=== PATIENT | male | born 1980 | race Caucasian/White ===

== ENCOUNTER 2016-08-09 22:22 | Emergency (ER) | payer SELFPAY ==
[2016-08-09] MEDS ORDERED: PREDNISONE 20 MG TABLET PO ONE (23:04)
[2016-08-09] MEDS ORDERED: KETOROLAC TROMETHAMINE 60 MG/2 ML SDV IM ONE (23:06)
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
[2016-08-10 00:20] LABS: ABSOLUTE EOSINOPHILS # (AUTO) 0.1 10^3/uL (0.0-0.6); ABSOLUTE LYMPHOCYTES (AUTO) 1.8 10^3/uL (0.5-4.7); ABSOLUTE NEUT (AUTO) 6.5 10^3/uL (1.7-8.2); BASOPHILS % (AUTO) 0.3 % (0-2); EOSINOPHILS % (AUTO) 0.7 % (0-6); HEMATOCRIT 43.9 % (37.9-51.0); HEMOGLOBIN 15.2 g/dL (13.5-17.0); HGB HCT DIFFERENCE 1.7; LYMPHOCYTES % (AUTO) 18.9 % (13-45); MEAN CORPUSCULAR HEMOGLOBIN 37.3 pg (27.0-33.4); MEAN CORPUSCULAR HGB CONC 34.6 g/dL (32.0-36.0); MEAN CORPUSCULAR VOLUME 108 fl (80-97); MONOCYTES % (AUTO) 10.4 % (3-13); RED BLOOD COUNT 4.07 10^6/uL (4.35-5.55); RED CELL DISTRIBUTION WIDTH 13.5 % (11.5-14.0); SEGMENTED NEUTROPHILS % (AUTO) 69.7 % (42-78); WHITE BLOOD COUNT 9.4 10^3/uL (4.0-10.5)
[2016-08-10 00:38] LABS: ALANINE AMINOTRANSFERASE 50 U/L (21-72); ALBUMIN 4.5 g/dL (3.5-5.0); ALCOHOL 147 mg/dL (NONE DETECTED); ALKALINE PHOSPHATASE 183 U/L (38-126); ANION GAP 17 (5-19); ASPARTATE AMINO TRANSFERASE 153 U/L (17-59); BILIRUBIN,TOTAL 1.7 mg/dL (0.2-1.3); BLOOD UREA NITROGEN 5 mg/dL (7-20); CALCIUM 11.2 mg/dL (8.4-10.2); CARBON DIOXIDE 30 mmol/L (22-30); CHLORIDE 91 mmol/L (98-107); CREATININE RESULT 0.58 mg/dL (0.52-1.25); GLUCOSE 103 mg/dL (75-110); POTASSIUM 3.6 mmol/L (3.6-5.0); SODIUM 137.6 mmol/L (137-145); TOTAL PROTEIN 8.2 g/dL (6.3-8.2)
[2016-08-10 00:47] LABS: APPEARANCE,URINE CLEAR; BILIRUBIN,URINE NEGATIVE (NEGATIVE); GLUCOSE, URINE NEGATIVE (NEGATIVE); KETONES,URINE NEGATIVE (NEGATIVE); LEUKOCYTE ESTERASE,URINE NEGATIVE (NEGATIVE); NITRITE,URINE NEGATIVE (NEGATIVE); PROTEIN,URINE NEGATIVE (NEGATIVE); URINE SPECIFIC GRAVITY 1.005; UROBILINOGEN,URINE NEGATIVE mg/dL (<2.0)
[2016-08-10 01:15] LABS: URINE BARBITURATES SCREEN NEGATIVE; URINE METHADONE SCREEN NEGATIVE; URINE OPIATES LOW NEGATIVE; URINE PHENCYCLIDINE SCREEN NEGATIVE
[2016-08-10] MEDS ORDERED: MECLIZINE HCL 25 MG TABLET PO ONE (05:14)
--- NOTE | 2016-08-10 10:34 | EKG REPORT ---
SEVERITY:- ABNORMAL ECG - SINUS RHYTHM PROBABLE LEFT ATRIAL ABNORMALITY NONSPECIFIC T ABNORMALITIES, ANTERIOR LEADS : Confirmed by: Andrey Myers 10-Aug-2016 10:33:11
[2016-08-10 11:19] VITALS: BP 138/80
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
== END 2016-08-10 11:19 | disposition home or self-care (01) ==
LOC: ER 22:22
DX: G89.29 Other chronic pain (principal); M54.5 Low back pain; Z96.89 Presence of other specified functional implants; F10.129 Alcohol abuse with intoxication, unspecified; R45.6 Violent behavior; R09.89 Other specified symptoms and signs involving the circulatory and respiratory systems; M25.521 Pain in right elbow; W19.XXXA Unspecified fall, initial encounter; Y93.89 Activity, other specified; Y92.238 Other place in hospital as the place of occurrence of the external cause; F17.200 Nicotine dependence, unspecified, uncomplicated; R00.0 Tachycardia, unspecified
CPT/HCPCS: 93005; 99285; 96372; 36415; 80307 ×4; 85025; 80053; 81001; 93010; J1885; J7512

== ENCOUNTER 2017-01-09 08:51 | Emergency (ER) | payer SELFPAY ==
[2017-01-09] MEDS ORDERED: LIDOCAINE 1% INJ-PF (10 MG/ML) 30 ML SDV INJ ONE (09:25)
[2017-01-09] MEDS ORDERED: OXYCODONE-ACETAMINOPHEN 5-325 MG TABLET PO ONE (09:25)
--- NOTE | 2017-01-09 09:46 | ER Document Report ---
ED General - General Chief Complaint: Seizure Stated Complaint: NOSE INJURY FROM POSSIBLE SEIZURE Time Seen by Provider: 01/09/17 09:18 Mode of Arrival: Ambulatory Information source: Patient Notes: 36 yr male presents with hx of seizure disorder with complaints of seizure prior to arrival. pt otes he fell and struck his face. Pt denies any other injuries except for abrasion to the right hand. pt denies any fevers or chills, states that he takes his meds as prescribed. TRAVEL OUTSIDE OF THE [place] IN LAST 30 DAYS: No - HPI Onset: Just prior to arrival Onset/Duration: Sudden Quality of pain: Achy Severity: Mild Pain Level: 1 Associated symptoms: Other - facial injuries Exacerbated by: Denies Relieved by: Denies Similar symptoms previously: Yes Recently seen / treated by doctor: Yes - Related Data Allergies/Adverse Reactions: hydrocodone bitartrate [From Vicodin] Adverse Reaction (Intermediate, Verified 12/04/15 06:47) Past Medical History - Social History Smoking Status: Current Every Day Smoker Cigarette use (# per day): Yes Chew tobacco use (# tins/day): No - 20 Smoking Education Provided: Yes - Patient counselled regarding cessation for 4 minutes Frequency of alcohol use: Occasional Drug Abuse: None Family History: None, Other Patient has suicidal ideation: No Patient has homicidal ideation: No Pulmonary Medical History: Denies: Hx Tuberculosis Neurological Medical History: Reports: Hx Seizures Renal/ Medical History: Denies: Hx Peritoneal Dialysis Traumatic Medical History: Reports: Hx Fractures - current Right foot fracture Past Surgical History: Reports: Hx Abdominal Surgery, Hx Genitourinary Surgery. Denies: Hx Pacemaker - Immunizations Hx Diphtheria, Pertussis, Tetanus Vaccination: Yes - >3months Review of Systems - Review of Systems Notes: REVIEW OF SYSTEMS: CONSTITUTIONAL : Denies fever, chills, or sweats. Denies recent illness. EENT: admits to facial injury CARDIOVASCULAR: Denies chest pain. Denies palpitations or racing or irregular heart beat. Denies ankle edema. RESPIRATORY: Denies cough, cold, or chest congestion. Denies shortness of breath, difficulty breathing, or wheezing. GASTROINTESTINAL: Denies abdominal pain or distention. Denies nausea, vomiting , or diarrhea. Denies blood in vomitus, stools, or per rectum. Denies black, tarry stools. Denies constipation. GENITOURINARY: Denies difficulty urinating, painful urination, burning, frequency, blood in urine, or discharge. MUSCULOSKELETAL: Denies back or neck pain or stiffness. Denies joint pain or swelling. SKIN: Denies rash, lesions or sores. HEMATOLOGIC : Denies easy bruising or bleeding. LYMPHATIC: Denies swollen, enlarged glands. NEUROLOGICAL: Denies confusion or altered mental status. Denies passing out or loss of consciousness. Denies dizziness or lightheadedness. Denies headache. Denies weakness or paralysis or loss of use of either side. Denies problems with gait or speech. Denies sensory loss, numbness, or tingling. Denies seizures. PSYCHIATRIC: Denies anxiety or stress. Denies depression, suicidal ideation, or homicidal ideation. ALL OTHER SYSTEMS REVIEWED AND NEGATIVE. Dictation was performed using [employer] voice recognition software PHYSICAL EXAMINATION: GENERAL: Well-appearing, well-nourished and in no acute distress. HEAD: facial injury EYES: Pupils equal round and reactive to light, extraocular movements intact, sclera anicteric, conjunctiva are normal. ENT: nasal swelling , edema NECK: Normal range of motion, supple without lymphadenopathy LUNGS: Breath sounds clear to auscultation bilaterally and equal. No wheezes rales or rhonchi. HEART: Regular rate and rhythm without murmurs ABDOMEN: Soft, nontender, nondistended abdomen. No guarding, no rebound. No masses appreciated. Musculoskeletal: Normal range of motion, no pitting or edema. No cyanosis. NEUROLOGICAL: Cranial nerves grossly intact. Normal speech, normal gait. Normal sensory, motor exams PSYCH: Normal mood, normal affect. SKIN: laceration of the skin between the lip and nose, laceration of the mucosal lower lip Physical Exam - Vital signs Vitals: Temp Pulse Resp BP Pulse Ox 98.2 F 104 H 18 126/80 H 97 01/09/17 08:57 01/09/17 08:57 01/09/17 08:57 01/09/17 08:57 01/09/17 08:57 Course - Re-evaluation Re-evalutation: 01/09/17 09:48 lacerations will be cleansed extensivelyt, repaired tet is up to date 01/09/17 10:58 Patient's lip laceration was extensively torn, 9 sutures were required to fix the lip and the verminllion border. upper lip required [address] is consistent with nasal fracture otherwise patient stable for discharge to follow-up with neurology After performing a Medical Screening Examination, I estimate there is LOW risk for OPEN FRACTURE, COMPARTMENT SYNDROME, TENDON RUPTURE, ACUTE NEUROVASCULAR INJURY, or RETAINED FOREIGN BODY, thus I consider the discharge disposition reasonable. Also, there is no evidence or peritonitis, sepsis, or toxicity. I have reevaluated this patient multiple times and no significant life threatening changes are noted. The patient and I have discussed the diagnosis and risks, and we agree with discharging home with close follow-up with the understanding that symptoms and presentations can change. We also discussed returning to the Emergency Department immediately if new or worsening symptoms occur. We have discussed the symptoms which are most concerning (e.g., changing or worsening pain, fever, numbness, weakness, cool or painful digits) that necessitate immediate return. 01/09/17 11:03 - Vital Signs Vital signs: Temp Pulse Resp BP Pulse Ox 98.2 F 104 H 18 126/80 H 97 01/09/17 08:57 01/09/17 08:57 01/09/17 08:57 01/09/17 08:57 01/09/17 08:57 - Diagnostic Test Radiology reviewed: Image reviewed, Reports reviewed Procedures - Laceration/Wound Repair Mid- Face Time completed: 11: Wound length (cm): 3.3 Wound's Depth, Shape: Superficial, Irregular, Flap Laceration pre-procedure: Sterile PPE donned, Sterile drapes applied, Shur- Clens applied Anesthetic type: 1% Lidocaine Volume Anesthetic (mLs): 6 Wound explored: Clean, No foreign body removed Irrigated w/ Saline (mLs): 500 Wound Debrided: Minimal Wound Repaired With: Sutures Suture Size/Type: 5:0, Ethilon Number of Sutures: 2 Layer Closure?: No Post-procedure wound care: Sterile dressing applied Post-procedure NV exam normal: Yes Complications: No Lower Face Time completed: 11:02 - lip laceration through jennifer border Wound length (cm): 5 Wound's Depth, Shape: Into muscle, Irregular, Flap, Stellate, Contused tissue Laceration pre-procedure: Sterile PPE donned, Shur-Clens applied Anesthetic type: 1% Lidocaine Volume Anesthetic (mLs): 10 Wound explored: Foreign body removed Irrigated w/ Saline (mLs): 500 Wound Debrided: Extensive Wound Repaired With: Sutures Suture Size/Type: 5:0, Vicryl Number of Sutures: 9 Layer Closure?: Yes Deep Layer Suture Size/Type: 5:0 Post-procedure wound care: Sterile dressing applied Post-procedure NV exam normal: Yes Complications: No - Additional Procedures submental nerve block Time performed: 10:00 - using 10 cc of lidocaine 1% without epi compelte nerve block of the bilateral sub mental aspect Discharge - Discharge Clinical Impression: Seizure, Lip laceration through vermilion border Nasal fracture Qualifiers: Encounter type: initial encounter Fracture type: closed Qualified Code(s): S02.2XXA - Fracture of nasal bones, initial encounter for closed fracture Laceration of upper lip with complication Qualifiers: Encounter type: initial encounter Qualified Code(s): S01.511A - Laceration without foreign body of lip, initial encounter Condition: Stable Disposition: HOME, SELF-CARE Instructions: Laceration Care ([facility]), Prophylactic Antibiotic ([facility]), Soap Cleansing ([facility]) Additional Instructions: Follow-up in 5 days for removal of sutures from upper lip return immediately if there is any other concerns Prescriptions: Amox Tr/Potassium Clavulanate [Augmentin 875-125 Tablet] 1 tab PO BID 10 Days Oxycodone HCl/Acetaminophen [Percocet 5-325 mg Tablet] 1 - 2 tab PO Q4H PRN #15 tablet PRN Reason:
--- NOTE | 2017-01-09 10:49 | RADIOLOGY REPORT (SQ) ---
EXAM DESCRIPTION: CT FACIAL AREA WITHOUT COMPLETED DATE/TIME: 01/09/2017 10:23 am REASON FOR STUDY: seizure, facial injury COMPARISON: February 2015 TECHNIQUE: Noncontrasted images through the facial bones and orbits windowed for bone and soft tissu e. Additional coronal and sagittal reconstructed images reviewed. All images stored on PACS. All CT scanners at this facility use dose modulation, iterative reconstruction, and/or weight based d osing when appropriate to reduce radiation dose to as low as reasonably achievable (ALARA). [facility]: Dose Right [facility]: CareDose [facility]: Dose Right [facility]: Teradose 4D [facility]: [employer] RADIATION DOSE: Up-to-date CT equipment and radiation dose reduction techniques were employed. CTDIv ol: 30.4 mGy. DLP: 692 mGy-cm. mGy. LIMITATIONS: None. FINDINGS: FACIAL BONES: There is some cortical irregularity involving the nasal bones suspicious for a nasal fracture. No other evidence for fracture is seen. ORBITS: Intact. No fracture. Symmetric intact globes and retroorbital soft tissues. PARANASAL SINUSES: Mucosal thickening is identified in the right maxillary antra. No air-fluid level s are identified. No nasal polyps. Maxillary sinus outlets are patent. SOFT TISSUES: There appears to be some minimal soft tissue swelling associated with the nasal bone fr actures. INFERIOR BRAIN: Limited view. No acute findings. OTHER: No other significant finding. IMPRESSION: Cortical irregularity involving the nasal bone suspicious for nasal fracture. No other evidence for fracture is seen. Other findings as noted above TECHNICAL DOCUMENTATION: JOB ID: [id number] Quality ID # [id number]: Final reports with documentation of one or more dose reduction techniques (e.g., Au tomated exposure control, adjustment of the mA and/or kV according to patient size, use of iterative reconstruction technique) 2010 [employer]- All Rights Reserved
[2017-01-09 11:19] VITALS: BP 138/89
== END 2017-01-09 11:19 | disposition home or self-care (01) ==
LOC: ER 08:51
PROC: 0HQ1XZZ Repair Face Skin, External Approach (ICD-10-PCS; principal; 2017-01-09)
PROC: 0CQ4XZZ Repair Buccal Mucosa, External Approach (ICD-10-PCS; 2017-01-09)
DX: S02.2XXA Fracture of nasal bones, initial encounter for closed fracture (principal); S09.12XA Laceration of muscle and tendon of head, initial encounter; S01.511A Laceration without foreign body of lip, initial encounter; S01.81XA Laceration without foreign body of other part of head, initial encounter; S60.511A Abrasion of right hand, initial encounter; W19.XXXA Unspecified fall, initial encounter; G40.909 Epilepsy, unspecified, not intractable, without status epilepticus; F17.210 Nicotine dependence, cigarettes, uncomplicated; Z71.6 Tobacco abuse counseling
CPT/HCPCS: 99406; 99284; 36415; 80185; 70486; 12013; 40831; J3490

== ENCOUNTER 2017-02-01 14:59 | Inpatient (IN) | payer SELFPAY ==
[2017-02-01] MEDS ORDERED: CEFTRIAXONE 1 GM/D5W RTU 50 ML IV ONE (15:11)
[2017-02-01] MEDS ORDERED: NORMAL SALINE 1000 ML 1,000 ML IV ONE ×2 (15:11→16:36)
[2017-02-01] MEDS ORDERED: NORMAL SALINE 1000 ML 1,000 ML IV PRN ×2 (15:11→20:55)
[2017-02-01] MEDS ORDERED: METHYLPREDNISOLONE INJ 125 MG/2 ML SDV IV ONE (15:11)
[2017-02-01 15:37] LABS: ABSOLUTE LYMPHOCYTES (AUTO) 1.5 10^3/uL (0.5-4.7); ABSOLUTE MONOCYTES (AUTO) 1.3 10^3/uL (0.1-1.4); ABSOLUTE NEUT (AUTO) 13.4 10^3/uL (1.7-8.2); BASOPHILS % (AUTO) 0.2 % (0-2); HEMATOCRIT 33.4 % (37.9-51.0); HEMOGLOBIN 11.6 g/dL (13.5-17.0); HGB HCT DIFFERENCE 1.4; LYMPHOCYTES % (AUTO) 9.3 % (13-45); MEAN CORPUSCULAR HEMOGLOBIN 39.1 pg (27.0-33.4); MEAN CORPUSCULAR HGB CONC 34.7 g/dL (32.0-36.0); MONOCYTES % (AUTO) 8.2 % (3-13); RED BLOOD COUNT 2.96 10^6/uL (4.35-5.55); RED CELL DISTRIBUTION WIDTH 15.2 % (11.5-14.0); SEGMENTED NEUTROPHILS % (AUTO) 82.3 % (42-78); WHITE BLOOD COUNT 16.3 10^3/uL (4.0-10.5)
[2017-02-01 15:38] LABS: VENOUS BLOOD BASE EXCESS 4.7 mmol/L; VENOUS BLOOD HCO3 27.4 mmol/L (20-32); VENOUS BLOOD PH 7.52 (7.30-7.42)
[2017-02-01 15:41] LABS: PROTHROMBIN TIME 19.7 SEC (11.4-15.4)
[2017-02-01 15:49] LABS: ALANINE AMINOTRANSFERASE 31 U/L (21-72); ALBUMIN 3.2 g/dL (3.5-5.0); ALCOHOL 246 mg/dL (NONE DETECTED); ALKALINE PHOSPHATASE 222 U/L (38-126); ANION GAP 19 (5-19); ASPARTATE AMINO TRANSFERASE 109 U/L (17-59); BILIRUBIN,DIRECT 1.7 mg/dL (0.0-0.4); BILIRUBIN,TOTAL 3.2 mg/dL (0.2-1.3); BLOOD UREA NITROGEN 15 mg/dL (7-20); CALCIUM 7.8 mg/dL (8.4-10.2); CARBON DIOXIDE 24 mmol/L (22-30); CHLORIDE 91 mmol/L (98-107); CREATININE RESULT 0.54 mg/dL (0.52-1.25); GLUCOSE 147 mg/dL (75-110); SODIUM 133.8 mmol/L (137-145); TOTAL PROTEIN 6.7 g/dL (6.3-8.2)
[2017-02-01 16:02] LABS: POTASSIUM 3.1 mmol/L (3.6-5.0)
[2017-02-01 16:07] LABS: ANISOCYTOSIS SLIGHT
[2017-02-01 16:08] LABS: LIPASE 259.2 U/L (23-300); POLYCHROMASIA SLIGHT; TARGET CELLS SLIGHT; TOXIC GRANULATION 1+
[2017-02-01 16:09] LABS: POIKILOCYTOSIS SLIGHT; TEAR DROP CELLS SLIGHT
[2017-02-01 16:10] LABS: MEAN CORPUSCULAR VOLUME 113 fl (80-97)
--- NOTE | 2017-02-01 16:32 | EKG REPORT ---
SEVERITY:- BORDERLINE ECG - SINUS TACHYCARDIA BORDERLINE T ABNORMALITIES, DIFFUSE LEADS : Confirmed by: Andrey Myers 01-Feb-2017 16:31:51
[2017-02-01 17:27] LABS: APPEARANCE,URINE SLIGHTLY-CLOUDY; BILIRUBIN,URINE SMALL (NEGATIVE); GLUCOSE, URINE NEGATIVE (NEGATIVE); KETONES,URINE NEGATIVE (NEGATIVE); LEUKOCYTE ESTERASE,URINE NEGATIVE (NEGATIVE); NITRITE,URINE NEGATIVE (NEGATIVE); PROTEIN,URINE 100 mg/dL (NEGATIVE); URINE SPECIFIC GRAVITY 1.021
[2017-02-01 17:30] LABS: URINE BARBITURATES SCREEN NEGATIVE; URINE METHADONE SCREEN NEGATIVE; URINE OPIATES LOW NEGATIVE; URINE PHENCYCLIDINE SCREEN NEGATIVE
--- NOTE | 2017-02-01 17:50 | RADIOLOGY REPORT (SQ) ---
EXAM DESCRIPTION: CTA CHEST COMPLETED DATE/TIME: 02/01/2017 5:13 pm REASON FOR STUDY: sepsis COMPARISON: None. TECHNIQUE: CT scan of the chest performed using helical scanning technique with dynamic intravenous contrast injection. Images reviewed with lung, soft tissue and bone windows. Reconstructed coronal and sagittal MPR images reviewed. Additional 3 dimensional post-processing performed to develop Maximal Intensity Projection images (OK P). All images stored on PACS. All CT scanners at this facility use dose modulation, iterative reconstruction, and/or weight based d osing when appropriate to reduce radiation dose to as low as reasonably achievable (ALARA). [facility]: Dose Right [facility]: CareDose [facility]: Dose Right [facility]: Teradose 4D [facility]: [employer] CONTRAST TYPE AND DOSE: contrast/concentration: Isovue 370.00 mg/ml; Total Contrast Delivered: 68.0 ml; Total Saline Delivered: 108.0 ml RENAL FUNCTION: BUN 15; creatinine 0.54 RADIATION DOSE: Up-to-date CT equipment and radiation dose reduction techniques were employed. CTDIv ol: 14.6 - 16.5 mGy. DLP: 1981 mGy-cm. . LIMITATIONS: None. FINDINGS: LUNGS AND PLEURA: Diffuse ground-glass opacification of the lungs. Biapical paraseptal em physematous change. No pleural effusion. No pneumothorax. AORTA AND GREAT VESSELS: No aneurysm or dissection. HEART: No pericardial effusion. PULMONARY ARTERIES: No emboli visualized in the main pulmonary arteries or the segmental branches. HILAR AND MEDIASTINAL STRUCTURES: No identified masses or abnormal nodes. HARDWARE: None in the chest. UPPER ABDOMEN: See separate report of the CT of the abdomen. THYROID AND OTHER SOFT TISSUES: No masses. No adenopathy. BONES: No acute or significant finding. 3D MIPS: Confirm above findings. OTHER: No other significant finding. IMPRESSION: 1. No evidence of pulmonary embolus. 2. Diffuse ground-glass opacities of the lungs. This is a nonspecific finding; differential conside rations include atypical pneumonitis, pulmonary edema, interstitial pneumonia, drug reaction, or othe r. TECHNICAL DOCUMENTATION: JOB ID: [id number] Quality ID # [id number]: Final reports with documentation of one or more dose reduction techniques (e.g., Au tomated exposure control, adjustment of the mA and/or kV according to patient size, use of iterative reconstruction technique) 2010 [employer]- All Rights Reserved
--- NOTE | 2017-02-01 18:02 | RADIOLOGY REPORT (SQ) ---
EXAM DESCRIPTION: CT ABD/PELVIS WITH IV ONLY COMPLETED DATE/TIME: 02/01/2017 5:13 pm REASON FOR STUDY: sepsis abd pain chronic lactic acid 8 COMPARISON: None. TECHNIQUE: CT scan of the abdomen and pelvis performed using helical scanning technique with dynamic intravenous contrast injection. No oral contrast. Images reviewed with lung, soft tissue, and bone windows. Reconstructed coronal and sagittal MPR images reviewed. Delayed images for evaluation of the urinary system also acquired. All images stored on PACS. All CT scanners at this facility use dose modulation, iterative reconstruction, and/or weight based d osing when appropriate to reduce radiation dose to as low as reasonably achievable (ALARA). [facility]: Dose Right [facility]: CareDose [facility]: Dose Right [facility]: Teradose 4D [facility]: [employer] CONTRAST TYPE AND DOSE: Scan completed concurrently with CTA of the chest. RENAL FUNCTION: BUN 15; creatinine 0.54 RADIATION DOSE: . LIMITATIONS: None. FINDINGS: LOWER CHEST: See separate report of the CT of the chest. LIVER: There is a markedly abnormal appearance of the liver, and demonstrating diffusely decreased at tenuation, predominantly involving the caudate lobe. The portal vein demonstrates uniform opacificat ion. SPLEEN: Normal size. No focal lesions. PANCREAS: No masses. No significant calcifications. No adjacent inflammation or peripancreatic fluid collections. Pancreatic duct not dilated. GALLBLADDER: Gallstones. No inflammatory changes to suggest cholecystitis. ADRENAL GLANDS: Bilateral adrenal calcifications suggests previous adrenal hemorrhages. No mass. RIGHT KIDNEY AND URETER: No solid masses. No significant calcifications. No hydronephrosis or hyd roureter. LEFT KIDNEY AND URETER: No solid masses. No significant calcifications. No hydronephrosis or hydr oureter. AORTA AND VESSELS: No aneurysm. No dissection. Renal arteries, SMA, celiac without stenosis. RETROPERITONEUM: No retroperitoneal adenopathy, hemorrhage or masses. BOWEL AND PERITONEAL CAVITY: Diffuse mesenteric fat stranding, without focal nidus of infection. APPENDIX: Normal. PELVIS: No mass. No free fluid. Normal bladder. ABDOMINAL WALL: No masses. No hernias. BONES: No significant or acute findings. OTHER: No other significant finding. IMPRESSION: Markedly abnormal appearance of the liver demonstrating heterogeneous, predominantly dec reased attenuation. Differential considerations include hepatitis, toxic hepatic injury, neoplasm, o r other. Background of mesenteric fat stranding. TECHNICAL DOCUMENTATION: JOB ID: [id number] Quality ID # [id number]: Final reports with documentation of one or more dose reduction techniques (e.g., Au tomated exposure control, adjustment of the mA and/or kV according to patient size, use of iterative reconstruction technique) 2010 [employer]- All Rights Reserved
[2017-02-01] MEDS ORDERED: PIPERACILLIN/TAZOBACTAM 4.5 GM VIAL IV ONE (18:08)
[2017-02-01] MEDS ORDERED: LEVOFLOXACIN 500 MG/D5W RTU 100 ML IV ONE (18:17)
--- NOTE | 2017-02-01 18:19 | ER Document Report ---
ED General - General Chief Complaint: Respiratory Distress Stated Complaint: DIFFICULTY BREATHING Time Seen by Provider: 02/01/17 15:04 TRAVEL OUTSIDE OF THE [place] IN LAST 30 DAYS: No - HPI Patient complains to provider of: Difficulty breathing Notes: Patient is coming in via EMS for respiratory distress. Patient was found hypoxic with SPO2 in the 70s upon their arrival placed on 15 L and transported to the ER. Patient has a history of significant drug abuse along with alcohol abuse patient also has chronic pain history with nerve stimulators in his spine. Patient states drinks approximate 24 beers a day states he did drink beer today as well. Patient also admits to smoking tobacco. Denies any past medical history patient states he does have chronic abdominal pain from hernia surgery no changes in his pain at this time. Denies any nausea vomiting fevers chills states cough with productive sputum denies any recent travel or sick contacts according to EMS patient has been lying in bed for the past 2 weeks according family members because he did not feel like getting out of bed. - Related Data Allergies/Adverse Reactions: hydrocodone bitartrate [From Vicodin] Adverse Reaction (Intermediate, Verified 12/04/15 06:47) Past Medical History - Social History Smoking Status: Current Every Day Smoker Chew tobacco use (# tins/day): No Frequency of alcohol use: Occasional Drug Abuse: None Family History: None, Other Patient has suicidal ideation: No Patient has homicidal ideation: No Pulmonary Medical History: Denies: Hx Tuberculosis Neurological Medical History: Reports: Hx Seizures Renal/ Medical History: Denies: Hx Peritoneal Dialysis Traumatic Medical History: Reports: Hx Fractures - current Right foot fracture Past Surgical History: Reports: Hx Abdominal Surgery, Hx Genitourinary Surgery. Denies: Hx Pacemaker - Immunizations Hx Diphtheria, Pertussis, Tetanus Vaccination: Yes - >3months Review of Systems - Review of Systems Constitutional: No symptoms reported EENT: No symptoms reported Cardiovascular: No symptoms reported Respiratory: Cough, Short of breath, Wheezing Gastrointestinal: No symptoms reported Genitourinary: No symptoms reported Male Genitourinary: No symptoms reported Musculoskeletal: No symptoms reported Skin: No symptoms reported Hematologic/Lymphatic: No symptoms reported Neurological/Psychological: No symptoms reported Physical Exam - Vital signs Vitals: Temp Pulse Resp BP Pulse Ox 100.0 F 132 H 32 H 130/80 H 95 02/01/17 15:02 02/01/17 15:02 08/12/17 15:02 02/01/17 15:02 02/01/17 15:02 Interpretation: Tachycardic, Hypoxic - Allow low-level, Tachypneic - General General appearance: Alert In distress: Moderate - HEENT Head: Normocephalic, Atraumatic Eyes: Normal Pupils: PERRL - Respiratory Respiratory status: Respiratory distress Chest status: Nontender Breath sounds: Decreased air movement, Wheezing Chest palpation: Normal - Cardiovascular Rhythm: Regular Heart sounds: Normal auscultation Murmur: No - Abdominal Inspection: Normal Distension: No distension Bowel sounds: Normal Tenderness: Nontender Organomegaly: No organomegaly - Back Back: Normal, Nontender - Extremities General upper extremity: Normal inspection, Nontender, Normal color, Normal ROM , Normal temperature General lower extremity: Normal inspection, Nontender, Normal color, Normal ROM , Normal temperature, Normal weight bearing, Other - Bruises of the upper and lower extremities of various stages of healing.. No: Naeem's sign - Neurological Neuro grossly intact: Yes Cognition: Normal Orientation: AAOx4 Anam Coma Scale Eye Opening: Spontaneous Anam Coma Scale Verbal: Oriented Savage Coma Scale Motor: Obeys Commands Savage Coma Scale Total: 15 Speech: Normal Motor strength normal: LUE, RUE, LLE, RLE Sensory: Normal - Psychological Associated symptoms: Normal affect, Normal mood - Skin Skin Temperature: Warm Skin Moisture: Dry Skin Color: Normal Course - Re-evaluation Re-evalutation: 02/01/17 22:33 Initial requested portable chest x-ray however this fell through our radiology department as they were waiting to perform chest x-ray and CT at the same time. Lab work returned showing significant lactic acidosis and white count concerning for sepsis antibiotics were given. This with the patient on fluid resuscitation. Because of the elevated lactic acid and the patient's complaints of ongoing abdominal pain a CT of the abdomen was also performed CTA negative showing no pulmonary emboli however diffuse groundglass opacities consistent with infectious etiology. The CT of the abdomen revealed mesenteric inflammation of unclear etiology. Also shows diffuse liver disease patient improved with BiPAP broaden antibiotic coverage with Zosyn and Levaquin discussed with hospitalist will admit to the hospital for further evaluation. - Vital Signs Vital signs: Temp Pulse Resp BP Pulse Ox 100.0 F 132 H 24 H 119/95 H 93 02/01/17 15:02 02/01/17 15:02 02/01/17 22:00 02/01/17 20:15 02/01/17 22:00 - Laboratory Result Diagrams: 02/01/17 15:21 02/01/17 15:21 Laboratory results interpreted by me: 02/01/17 02/01/17 02/01/17 15:21 15:21 15:21 WBC 16.3 H RBC 2.96 L Hgb 11.6 L Hct 33.4 L MCV 113 H MCH 39.1 H RDW 15.2 H Plt Count 108 L Seg Neutrophils % 82.3 H Lymphocytes % 9.3 L Absolute Neutrophils 13.4 H PT 19.7 H APTT VBG pH VBG pCO2 Sodium 133.8 L Potassium 3.1 L Chloride 91 L Glucose 147 H POC Glucose Lactic Acid Calcium 7.8 L Total Bilirubin 3.2 H Direct Bilirubin 1.7 H AST 109 H Alkaline Phosphatase 222 H Albumin 3.2 L TSH Urine Protein Urine Bilirubin Urine Urobilinogen Salicylates < 1.0 L Acetaminophen < 10 L 02/01/17 02/01/17 02/01/17 15:21 15:21 15:21 WBC RBC Hgb Hct MCV MCH RDW Plt Count Seg Neutrophils % Lymphocytes % Absolute Neutrophils PT APTT 36.5 H VBG pH 7.52 H VBG pCO2 34.0 L Sodium Potassium Chloride Glucose POC Glucose Lactic Acid 8.4 H Calcium Total Bilirubin Direct Bilirubin AST Alkaline Phosphatase Albumin TSH Urine Protein Urine Bilirubin Urine Urobilinogen Salicylates Acetaminophen 02/01/17 02/01/17 02/01/17 15:21 16:37 17:39 WBC RBC Hgb Hct MCV MCH RDW Plt Count Seg Neutrophils % Lymphocytes % Absolute Neutrophils PT APTT VBG pH VBG pCO2 Sodium Potassium Chloride Glucose POC Glucose 138 H Lactic Acid Calcium Total Bilirubin Direct Bilirubin AST Alkaline Phosphatase Albumin TSH 0.43 L Urine Protein 100 H Urine Bilirubin SMALL H Urine Urobilinogen 4.0 H Salicylates Acetaminophen 02/01/17 02/01/17 20:35 20:35 WBC RBC Hgb Hct MCV MCH RDW Plt Count Seg Neutrophils % Lymphocytes % Absolute Neutrophils PT APTT VBG pH 7.53 H VBG pCO2 32.0 L Sodium Potassium Chloride Glucose POC Glucose Lactic Acid 4.8 H Calcium Total Bilirubin Direct Bilirubin AST Alkaline Phosphatase Albumin TSH Urine Protein Urine Bilirubin Urine Urobilinogen Salicylates Acetaminophen Critical Care Note - Critical Care Note Total time excluding time spent on procedures (mins): 50 Comments: Multiple re-evaluations due to patient with sepsis Discharge - Discharge Clinical Impression: Seizure disorder, History of alcohol abuse, History of seizure, Respiratory distress with hypoxia, Chronic pain following surgery or procedure Pneumonia Qualifiers: Pneumonia type: aspiration pneumonia Laterality: bilateral Lung location: unspecified part of lung Alcohol intoxication Qualifiers: Complication of substance-induced condition: with unspecified complication Qualified Code(s): F10.929 - Alcohol use, unspecified with intoxication, unspecified Alcohol dependence Qualifiers: Substance use status: with intoxication Condition: Stable Disposition: ADMITTED INPATIENT Admitting Provider: [facility] Admitted: ICU
[2017-02-01] MEDS ORDERED: THIAMINE HCL INJ 200 MG/2 ML VIAL IV PRN (19:27)
[2017-02-01] MEDS ORDERED: THIAMINE HCL 100 MG in NORMAL SALINE 50 ML IV ONE (19:30)
[2017-02-01] MEDS ORDERED: ALBUTEROL SULFATE 0.083% NEB 2.5 MG/3 ML AMPUL NEB PRN (20:46)
[2017-02-01] MEDS ORDERED: DEXTROSE 50%-WATER 25 GM/50 ML DISP.SYRIN IV PRN ×2 (20:46)
[2017-02-01] MEDS ORDERED: DEXTROSE 40% GEL 15 GM TUBE PO PRN ×2 (20:46)
[2017-02-01] MEDS ORDERED: GLUCAGON,HUMAN RECOMB 1 MG INJ SUBCUT PRN (20:46)
[2017-02-01] MEDS ORDERED: PHARMACY COMMUNICATION ORDER MC NR (21:00)
[2017-02-01] MEDS ORDERED: VANCOMYCIN HCL 0 MG in DEXTROSE 5%-WATER 250 ML IV NR (21:00)
[2017-02-01 21:03] LABS: VENOUS BLOOD BASE EXCESS 3.2 mmol/L; VENOUS BLOOD HCO3 25.8 mmol/L (20-32); VENOUS BLOOD PH 7.53 (7.30-7.42)
[2017-02-01] MEDS ORDERED: AMPICILLIN SOD/SULBACTAM 3 GM VIAL IV PRN (21:08)
[2017-02-01] MEDS ORDERED: VANCOMYCIN HCL INJ 1000 MG VIAL IV PRN (21:19)
[2017-02-01] MEDS ORDERED: VANCOMYCIN HCL INJ 500 MG VIAL IV PRN (21:20)
--- NOTE | 2017-02-01 21:38 | PDOC H&P ---
History of Present Illness Admission Date/PCP: 02/01/17 18:26 Primary care provider none [facility] Neurology Dr. Be Patient complains of: Difficulty breathing History of Present Illness: HERI LAWRENCE is a 36 year old male, three-quarter pack a day smoker , fifth of vodka every 2 days, seizure disorder, with the last episode 3 days ago, and chronic anxiety, along with chronic pain from prior herniorrhaphy with complications, status post nerve stimulator implant and replacement, who presents to the emergency room for evaluation of above complaint. Patient has been discussed with emergency room physician who evaluated the patient. Patient is somewhat intoxicated and confused and is able to provide no consistent history in terms of acute or chronic events, review of systems, personal habits, family history, etc. is present at his side and is somewhat informative and helpful. No old inpatient records available for review. For the last 2 weeks, he has been primarily lying in bed, telling the emergency room physician that he "did not feel like moving." He has been having fever and cold sweats along with gagging. Right lateral chest discomfort with deep breathing. No diarrhea or dysuria. called EMS. On their arrival, saturation in the 70 percentile range on room air. Brought to the emergency room for further evaluation. Was noted to be hypoxic, and in fair amount of respiratory distress, which has improved considerably with treatment so far, including placing patient on BiPAP. No known chronic pulmonary disease, including sleep apnea No trauma. Dictation via voice recognition software. Laboratory results are listed in [employer] and are reviewed. X-ray summary results are listed below, with full report(s) reviewed. CT abdomen results discussed with the interpreting radiologist. EKG reviewed. Social history/personal habits: . No children. Lives with . Unemployed. Personal habits as noted above. No illicit drug use. Allergies/adverse reactions are listed in [employer] and are reviewed. Home medications initially autopopulated into [employer] may not accurately reflect patient's true medications, dosages, and/or frequencies. residential tech to reconcile medications. Unfortunately, patient cannot provide any information related to medications/ dosages/frequencies. REVIEW OF SYSTEMS: Constitutional: See history and present illness. Eyes: No vision complaints. ENT: No swallowing problems or complaints. Denies hearing loss. Pulmonary: See history and present illness. Cardiovascular: See history and present illness. Gastrointestinal: See history and present illness. Skin: No current complaints, including rashes. Hematologic: Easy bruising. Neurologic: No current complaints, including numbness or tingling. Musculoskeletal: No current or chronic joint complaints, such as arthritis. Psychiatric: Anxiety. Endocrine: No current complaints, including polyuria. Genitourinary: No current complaints, including dysuria. PHYSICAL EXAMINATION: 5 feet 9 inches tall. 72.6 kg. BMI 23.6 kg/m. Blood pressure 124/81. Pulse 118 and regular. Respirations are 24 and unlabored. 97% saturation on BiPAP 16 /6, 60% FiO2. Earlier temperature 100.0; skin feels normothermic at present. Thin otherwise well-developed though somewhat chronically ill-appearing male who appears a bit older than his stated age. Appears somewhat fatigued. Mildly anxious, although no agitation. is present at his side. Skin is warm and dry. No grossly obvious evidence of rash in areas of skin examined. No subcutaneous nodules palpated. ENT: Hearing grossly normal to normal conversation. Tongue midline on protrusion pink and slightly tacky. Exam slightly limited by BiPAP mask with attaching straps. Eyes: No scleral icterus. Pupils equal and reactive to light at 4 mm. [place] conjunctivae. No raccoon eyes. Neck is supple and nontender to gentle active range of motion and palpation. Midline trachea. No palpable thyroid nodule mass enlargement or tenderness. Lymphatic: No palpable cervical or clavicular nodes. Neck and lymphatic exams limited by patient body habitus. Exam slightly limited by BiPAP mask with attaching straps. Psychiatric: Intermittent confused answers to basic questions. Oriented to time and location, but not completely certain why in the emergency room. Lungs: Auscultation reveals equal breath sounds bilaterally. No use of accessory respiratory muscles. Coarse breath sounds bilaterally. Cardiovascular: Heart regular rate and rhythm, without gallop murmur or rub. No abdominal aortic bruits. No ankle or pedal edema. Faintly palpable dorsalis pedis pulses. Difficult to evaluate for carotid bruit due to airway sounds from BiPAP device. Abdomen:soft somewhat distended nontender with positive bowel sounds. Unable to adequately evaluate abdomen for masses or organomegaly due to distention. Extremities: Hands and feet are warm and dry. No calf tenderness to compression. No grossly obvious visual evidence of calf swelling. Gentle manipulation of upper and lower extremities fails to reveal any obvious evidence of injury or instability to involved major joints. Neurologic: Cranial Nerves II through XII are grossly intact. Light touch intact cannot be adequately determined due to his mental status. Motor function of major muscle groups upper and lower extremities 5 over 5 and symmetric. Patellar reflexes absent. Absent Babinski. No nystagmus. No ankle clonus. Past Medical History Cardiac Medical History: Denies: Atrial Fibrillation, Congestive Heart Failure, Coronary Artery Disease, DVT, Myocardial Infarction, Hyperlipidema, Hypertension, Pulmonary Embolism Pulmonary Medical History: Denies: Asthma, Chronic Obstructive Pulmonary Disease (COPD), Sleep Apnea, Tuberculosis EENT Medical History: Denies: Eyes, Ears, Throat Neurological Medical History: Reports: Seizures Denies: Hemorrhagic CVA, Ischemic CVA Endocrine Medical History: Denies: Diabetes Mellitus Type 1, Diabetes Mellitus Type 2, Hyperthyroidism, Hypothyroidism Renal/ Medical History: Reports: None GI Medical History: Reports: Other - Heartburn Denies: Cirrhosis, Hepatitis, Peptic Ulcer Disease Musculoskeltal Medical History: Denies: Arthritis Skin Medical History: Reports: None Psychiatric Medical History: Reports: Alcohol Dependency, General Anxiety Disorder, Tobacco Dependency Denies: Depression, Substance Abuse Hematology: Reports: Other - Easy bruising Infectious Medical History: Denies: Hepatitis B, Hepatitis C Past Surgical History Past Surgical History: Reports: Herniorrhaphy - With chronic postop pain, Other - Nerve stimulator implant; relocation posteriorly 6 months ago. Social History Information Source: Relative - , Emergency Med Personnel, [facility] Records Lives with: Spouse/Significant other Smoking Status: Current Every Day Smoker Frequency of Alcohol Use: Heavy - Fifth of vodka every 2 days Hx Recreational Drug Use: No Drugs: None Hx Prescription Drug Abuse: No - Advance Directive Resuscitation Status: Full Code Surrogate healthcare decision maker:: Family History Family History: None, Other Parental Family History Reviewed: Yes - Mother with asthma; father with heart trouble Children Family History Reviewed: NA Sibling(s) Family History Reviewed.: Yes - Brother incarcerated Medication/Allergy Home Medications: Oxycodone HCl [Oxycodone HCl 10 MG Tablet] 10 mg PO Q6HP PRN 02/02/17 Phenytoin Sodium Extended [Dilantin 100 mg Capsule.er] 300 mg PO QHS 02/02/17 Zolpidem Tartrate [Ambien] 10 mg PO QHS 02/02/17 Allergies/Adverse Reactions: hydrocodone bitartrate [From Vicodin] Adverse Reaction (Intermediate, Verified 12/04/15 06:47) Physical Exam Vital Signs: Temp Pulse Resp BP Pulse Ox 100.0 F 132 H 18 133/93 H 94 02/01/17 15:02 02/01/17 15:02 02/01/17 20:47 02/01/17 19:08 02/01/17 20:47 Results Laboratory Results: 02/01/17 02/01/17 20:35 20:35 VBG pH 7.53 H VBG pCO2 32.0 L VBG HCO3 25.8 VBG Base Excess 3.2 Lactic Acid 4.8 H Impressions: Chest/Abdomen CTA 02/01/17 15:13 IMPRESSION: 1. No evidence of pulmonary embolus. 2. Diffuse ground-glass opacities of the lungs. This is a nonspecific finding ; differential considerations include atypical pneumonitis, pulmonary edema, interstitial pneumonia, drug reaction, or other. Abdomen/Pelvis CT 02/01/17 16:01 IMPRESSION: Markedly abnormal appearance of the liver demonstrating heterogeneous, predominantly decreased attenuation. Differential considerations include hepatitis, toxic hepatic injury, neoplasm, or other. Background of mesenteric fat stranding. Assessment & Plan - Diagnosis (1) Alcohol intoxication Qualifiers: Complication of substance-induced condition: with unspecified complication Qualified Code(s): F10.929 - Alcohol use, unspecified with intoxication , unspecified Is this a current diagnosis for this admission?: YesPlan: Alcohol withdrawal precautions. Intravenous thiamine tonight; banana bag daily starting tomorrow. As needed Ativan. (2) Alcohol dependence Qualifiers: Substance use status: with intoxication Is this a current diagnosis for this admission?: Yes (3) Tobacco dependence Is this a current diagnosis for this admission?: Yes (4) Seizure disorder Is this a current diagnosis for this admission?: YesPlan: Seizure precautions. Parenteral Dilantin. (5) Thrombocytopenia Is this a current diagnosis for this admission?: YesPlan: Likely secondary to alcohol abuse. Follow-up CBC with differential. Will preclude use of Lovenox or heparin. (6) Coagulopathy Is this a current diagnosis for this admission?: YesPlan: Follow-up PT/INR. Likely due to underlying liver disease from alcohol abuse. (7) Hypokalemia Is this a current diagnosis for this admission?: YesPlan: Potassium replacement with follow-up chemistry. (8) Acute respiratory failure with hypoxia Is this a current diagnosis for this admission?: YesPlan: Patient will be admitted under pneumonia protocol. Suspicious for possible aspiration pneumonia. BiPAP converted to CPAP due to blood gas results. Wean from CPAP as tolerated. Incentive spirometry twice a day. Scheduled DuoNeb's. As needed albuterol nebs. Antibiotics will consist of Unasyn and intravenous vancomycin; pharmacy to assist with vancomycin dosing. Patient is a full code. I have strongly encouraged patient not to get out of bed, to avoid a fall with injury. Knee high SCDs for DVT prophylaxis. Impression and plans were discussed with who concurs. Time spent in evaluation and management of patient: 80 critical-care minutes. (9) Elevated LFTs Is this a current diagnosis for this admission?: YesPlan: Likely secondary to alcohol abuse. Follow-up chemistry. (10) Abnormal CT of liver Is this a current diagnosis for this admission?: YesPlan: Results discussed with interpreting radiologist. Ultrasound of liver. (11) Chronic pain following surgery or procedure Is this a current diagnosis for this admission?: YesPlan: Appropriate pain medication. (12) Pneumonia Qualifiers: Pneumonia type: aspiration pneumonia Laterality: bilateral Lung location: unspecified part of lung Is this a current diagnosis for this admission?: Yes - Time Critical Time spent with patient: 35 or more minutes Anticipated discharge: Home Within: Other - Inpatient Certification Based on my medical assessment, after consideration of the patient's comorbidities, presenting symptoms, or acuity I expect that the services needed warrant INPATIENT care.: Yes I certify that my determination is in accordance with my understanding of Medicare's requirements for reasonable and necessary INPATIENT services [42 CFR 412.3e].: Yes Medical Necessity: Need Close Monitoring Due to Risk of Patient Decompensation, Need For IV Fluids, Need for Nebulizer Therapy and Monitoring of Response, Need for IV Antibiotics, Risk of Diagnosis Which Will Require Inpatient Eval/Care/ Monitoring Post Hospital Care: D/C or Transfer Summary
[2017-02-01] MEDS ORDERED: VANCOMYCIN HCL 1,500 MG in DEXTROSE 5%-WATER 250 ML IV ONE (22:00)
[2017-02-01] MEDS: POTASSI CL 20 MEQ/50 ML RIDER 50 ML IV SCH (22:32)
[2017-02-01] MEDS: AMPICILLIN SODIUM/SULBACTAM NA 3 GM in NORMAL SALINE 100 ML IV SCH (22:34)
[2017-02-01] MEDS: LORAZEPAM INJ 2 MG/1 ML VIAL IV PRN (22:37)
--- NOTE | 2017-02-01 23:48 | RADIOLOGY REPORT (SQ) ---
EXAM DESCRIPTION: U/S ABDOMEN LTD W/DOPPLER COMPLETED DATE/TIME: 02/01/2017 11:31 pm REASON FOR STUDY: abn ct liver COMPARISON: CT abdomen and pelvis 02/01/2017 and 08/10/2015 TECHNIQUE: Dynamic and static grayscale images acquired of the abdomen and recorded on PACS. Additio nal selected color Doppler and spectral images recorded. LIMITATIONS: Body habitus and intervening bowel gas limits examination. FINDINGS: PANCREAS: Not adequately visualized. LIVER: As seen on comparison CT imaging, the liver demonstrates coarsened, heterogeneous echogenicity . LIVER VASCULATURE: Doppler interrogation of the liver is limited, but demonstrates normal directional flow of the portal vein. GALLBLADDER: Hydropic. Normal mural thickness and no pericholecystic fluid. ULTRASOUND-DETECTED GURROLA'S SIGN: Negative. INTRAHEPATIC DUCTS AND COMMON DUCT: CBD and intrahepatic ducts normal caliber. No filling defects. INFERIOR VENA CAVA: Not adequately visualized. AORTA: Not adequately visualized. RIGHT KIDNEY: Limited visualization appears grossly normal. PERITONEAL AND RIGHT PLEURAL SPACE: No ascites or effusions. OTHER: No other significant findings. IMPRESSION: Limited examination due to body habitus and intervening bowel gas resulting in acoustic impedance. Prominent liver demonstrating coarsened, predominantly hyperechoic parenchyma is consiste nt with acute alcoholic hepatitis. Differential considerations including infectious hepatitis and ne oplastic processes are felt to be much less likely. TECHNICAL DOCUMENTATION: JOB ID: [id number]- All Rights Reserved
[2017-02-02] MEDS: POTASSI CL 20 MEQ/50 ML RIDER 50 ML IV SCH (00:50)
[2017-02-02 02:24] LABS: ANION GAP 9 (5-19); BLOOD UREA NITROGEN 12 mg/dL (7-20); CALCIUM 7.4 mg/dL (8.4-10.2); CARBON DIOXIDE 28 mmol/L (22-30); CHLORIDE 99 mmol/L (98-107); CREATININE RESULT 0.45 mg/dL (0.52-1.25); GLUCOSE 123 mg/dL (75-110); POTASSIUM 3.6 mmol/L (3.6-5.0)
[2017-02-02 02:30] LABS: ARTERIAL BLOOD BASE EXCESS 4.8 mmol/L
[2017-02-02] MEDS: AMPICILLIN SODIUM/SULBACTAM NA 3 GM in NORMAL SALINE 100 ML IV SCH ×4 (02:38→21:11)
--- NOTE | 2017-02-02 02:47 | RADIOLOGY REPORT (SQ) ---
EXAM DESCRIPTION: CHEST SINGLE VIEW COMPLETED DATE/TIME: 02/02/2017 2:36 am REASON FOR STUDY: resp distress COMPARISON: CT 02/01/2017 EXAM PARAMETERS: NUMBER OF VIEWS: One view. TECHNIQUE: Single frontal radiographic view of the chest acquired. RADIATION DOSE: NA LIMITATIONS: None. FINDINGS: LUNGS AND PLEURA: Diffuse minimal parenchymal opacities throughout the lungs. No effusion s. No pneumothorax. MEDIASTINUM AND HILAR STRUCTURES: No masses. Contour normal. HEART AND VASCULAR STRUCTURES: Heart normal in size. Normal vasculature. BONES: No acute findings. HARDWARE: None in the chest. OTHER: No other significant finding. IMPRESSION: Diffuse parenchymal opacities throughout the lungs. Differential includes pneumocystis pneumonia, noncardiogenic pulmonary edema such as inhalation toxin or allergy, or other causes of non cardiogenic pulmonary edema. . TECHNICAL DOCUMENTATION: JOB ID: [id number]
[2017-02-02] MEDS ORDERED: PROPOFOL 100 ML IV ONE (02:54)
--- NOTE | 2017-02-02 03:32 | Progress Note ---
Provider Note Provider Note: February 02, 2017: Patient persists with tachypnea, despite acceptable O2 saturation with reasonable FiO2. Went to the patient's bedside. Somnolent, but arouses reasonably easily. Auscultation of the lungs revealed basically clear breath sounds. However, patient remains tachypneic in the 40-50 range. Repeat chest x-ray was performed, along with arterial blood gas and Chem-7. No evidence of acidosis. Overall concern is that patient is heading for acute respiratory failure with his persistent tachypnea. Decision made to proceed with endotracheal intubation , which is carried out by [employer] H[employer] WIRE CUTTER without difficulty. Patient tolerated well. At 2:48 AM I left a generic voicemail message on 's telephone number to please call me at the hospital and that we were planning on proceeding with intubation. Still awaiting callback. Food Product Inspector is aware that may be calling me back. 35 minutes critical care time spent in evaluation management of patient, including chart review, multiple discussions with nursing staff, discussion with respiratory therapy, discussion with [employer] H[employer] WIRE CUTTER, chart review, entering of multiple orders into the electronic health record. X-ray images also reviewed at bedside, along with review of radiology reports.
[2017-02-02] MEDS: PROPOFOL 100 ML IV PRN ×4 (03:38→23:02)
[2017-02-02] MEDS ORDERED: NORMAL SALINE 1000 ML 1,000 ML IV PRN (03:40)
--- NOTE | 2017-02-02 03:43 | RADIOLOGY REPORT (SQ) ---
EXAM DESCRIPTION: CHEST SINGLE VIEW COMPLETED DATE/TIME: 02/02/2017 3:33 am REASON FOR STUDY: intubated COMPARISON: 02/02/2017 0227 hours EXAM PARAMETERS: NUMBER OF VIEWS: One view TECHNIQUE: Single frontal radiograph of the chest. RADIATION DOSE: N/A LIMITATIONS: None. FINDINGS: TEMPORARY SUPPORT DEVICES:ETT in expected location. NG tube courses below the diann-diaphr agm in to the stomach. LUNGS AND PLEURA: Diffuse parenchymal opacities. Emphysema. . No effusions. No masses. No pneumoth orax. MEDIASTINUM AND HILAR STRUCTURES: No masses. Contour normal. HEART AND VASCULAR STRUCTURES: Heart normal in size. normal vascularity. Aorta normal for age. BONES: No acute findings. OTHER: No other significant finding. IMPRESSION: Stable appearance. SUPPORT DEVICE(S) IN EXPECTED LOCATIONS. TECHNICAL DOCUMENTATION: JOB ID: [id number]- All Rights Reserved
[2017-02-02] MEDS: LORAZEPAM INJ 2 MG/1 ML VIAL IV PRN (03:44)
--- NOTE | 2017-02-02 03:44 | RADIOLOGY REPORT (SQ) ---
EXAM DESCRIPTION: CHEST SINGLE VIEW COMPLETED DATE/TIME: 02/02/2017 3:33 am REASON FOR STUDY: ETT ADVANCED COMPARISON: 02/02/2017 0312 hours EXAM PARAMETERS: NUMBER OF VIEWS: One view. TECHNIQUE: Single frontal radiographic view of the chest acquired. RADIATION DOSE: NA LIMITATIONS: None. FINDINGS: LUNGS AND PLEURA: Parenchymal opacities stable. Emphysema stable. MEDIASTINUM AND HILAR STRUCTURES: No masses. Contour normal. HEART AND VASCULAR STRUCTURES: Heart normal in size. Normal vasculature. BONES: No acute findings. HARDWARE: ETT advanced and now lies at the level of the clavicles. NG tube unchanged. OTHER: No other significant finding. IMPRESSION: ETT advanced to the level of the clavicles. Stable appearance of the lungs. TECHNICAL DOCUMENTATION: JOB ID: [id number]
[2017-02-02] MEDS ORDERED: SUCRALFATE SUSP 1 GM/10 ML UDCUP NG ONE (04:15)
[2017-02-02] MEDS: HYDROMORPHONE HCL INJ/PF 2 MG/ML AMPULE IV PRN ×4 (04:17→21:11)
--- NOTE | 2017-02-02 04:29 | Progress Note ---
Provider Note Provider Note: Concern for alcoholic hepatitis, with history of heavy alcohol use, radiology findings, and AST/ALT ratio greater than or equal to 2. Maddrey score of 39, so ideally would like to proceed with pharmacologic treatment. Uncomfortable proceeding with prednisolone due to likely underlying pneumonia. Second choice is pentoxifylline. Recommendation is not to crush tablet; patient currently intubated, with nasogastric tube in place. Current time 4:25 AM. A few minutes ago, I discussed with nighttime [facility] pharmacist. She did recommend hospital's in-house pharmacy make a special slurry of the medication which could then be infused down the nasogastric tube. She did not recommend simple crushing of the medication, with infusion down NG tube, due to its extended release characteristics. -------- Subsequently Discussed above with day hospitalist team.
[2017-02-02] MEDS: PHENYTOIN SODIUM INJ/PF 100 MG/2 ML SDV IV SCH ×3 (05:14→21:11)
[2017-02-02 06:45] LABS: HEMATOCRIT 29.3 % (37.9-51.0); HGB HCT DIFFERENCE 0.7; MEAN CORPUSCULAR HEMOGLOBIN 38.8 pg (27.0-33.4); MEAN CORPUSCULAR HGB CONC 34.2 g/dL (32.0-36.0); PARTIAL THROMBOPLASTIN TIME 34.2 SEC (23.5-35.8); PROTHROMBIN TIME 19.6 SEC (11.4-15.4); RED BLOOD COUNT 2.58 10^6/uL (4.35-5.55); RED CELL DISTRIBUTION WIDTH 15.3 % (11.5-14.0); WHITE BLOOD COUNT 15.5 10^3/uL (4.0-10.5)
[2017-02-02 06:56] LABS: ALANINE AMINOTRANSFERASE 29 U/L (21-72); ALBUMIN 2.6 g/dL (3.5-5.0); ALKALINE PHOSPHATASE 200 U/L (38-126); ANION GAP 10 (5-19); ASPARTATE AMINO TRANSFERASE 95 U/L (17-59); BILIRUBIN,DIRECT 1.8 mg/dL (0.0-0.4); BILIRUBIN,TOTAL 2.8 mg/dL (0.2-1.3); BLOOD UREA NITROGEN 12 mg/dL (7-20); CARBON DIOXIDE 26 mmol/L (22-30); CHLORIDE 100 mmol/L (98-107); CREATININE RESULT 0.47 mg/dL (0.52-1.25); GLUCOSE 84 mg/dL (75-110); MAGNESIUM 1.8 mg/dL (1.6-2.3); POTASSIUM 3.3 mmol/L (3.6-5.0); SODIUM 135.5 mmol/L (137-145); TOTAL PROTEIN 5.8 g/dL (6.3-8.2)
[2017-02-02 06:58] LABS: MEAN CORPUSCULAR VOLUME 113 fl (80-97)
[2017-02-02 07:03] LABS: CALCIUM 6.8 mg/dL (8.4-10.2)
[2017-02-02 07:26] LABS: BAND NEUTROPHILS % (MANUAL) 4 % (3-5); BASOPHILS % (MANUAL) 0 % (0-2); EOSINOPHILS % (MANUAL) 0 % (0-6); LYMPHOCYTES % (MANUAL) 5 % (13-45); TOTAL CELLS COUNTED 100
[2017-02-02 07:29] LABS: ANISOCYTOSIS SLIGHT; BURR CELLS SLIGHT; POIKILOCYTOSIS SLIGHT; POLYCHROMASIA SLIGHT; TARGET CELLS 1+; TOXIC GRANULATION SLIGHT; TOXIC VACUOLATION PRESENT
[2017-02-02 07:35] LABS: TEAR DROP CELLS SLIGHT
[2017-02-02] MEDS ORDERED: IPRATROPIUM/ALBUTEROL 0.5-2.5 MG/3 ML AMPUL NEB SCH (08:00)
[2017-02-02] MEDS ORDERED: MIDAZOLAM HCL 100 ML IV ONE (08:05)
[2017-02-02] MEDS: SUCRALFATE SUSP 1 GM/10 ML UDCUP NG SCH ×3 (08:27→21:12)
[2017-02-02] MEDS: IPRATROPIUM/ALBUTEROL 0.5-2.5 MG/3 ML AMPUL NEB SCH ×3 (08:34→20:29)
--- NOTE | 2017-02-02 08:43 | RADIOLOGY REPORT (SQ) ---
EXAM DESCRIPTION: CHEST SINGLE VIEW COMPLETED DATE/TIME: 02/02/2017 7:04 am REASON FOR STUDY: PNA COMPARISON: 02/02/2017 EXAM PARAMETERS: NUMBER OF VIEWS: One view. TECHNIQUE: Single frontal radiographic view of the chest acquired. RADIATION DOSE: NA LIMITATIONS: None. FINDINGS: LUNGS AND PLEURA: The previously described lung parenchymal opacities appear essentially u nchanged. MEDIASTINUM AND HILAR STRUCTURES: No masses. Contour normal. HEART AND VASCULAR STRUCTURES: The configuration of the heart and mediastinal structures is unchanged . BONES: No acute findings. HARDWARE: Endotracheal tube is unchanged in position. NG tube is seen in course to the abdomen. OTHER: No other significant finding. IMPRESSION: No significant interval change. Findings as noted above TECHNICAL DOCUMENTATION: JOB ID: [id number]
[2017-02-02 09:20] LABS: ARTERIAL BLOOD BASE EXCESS -0.3 mmol/L; ARTERIAL BLOOD O2 SATURATION 97.4 % (94-98)
[2017-02-02] MEDS: AZITHROMYCIN 500 MG in DEXTROSE 5%-WATER 250 ML IV SCH (10:12)
[2017-02-02] MEDS: PANTOPRAZOLE SODIUM 40 MG VIAL IV SCH ×2 (10:12→21:12)
[2017-02-02] MEDS ORDERED: ROCURONIUM BROMIDE INJ 50 MG/5 ML VIAL IV ONE (10:14)
--- NOTE | 2017-02-02 12:26 | PDOC PROGRESS REPORT ---
Subjective Progress Note for:: 02/02/17 Subjective:: reason for visit: f/u pneumonia, sepsis, hypoxic resp failure, ETOH hepatitis hospital course: per dr torres - "HERI LAWRENCE is a 36 year old male, three-quarter pack a day smoker, fifth of vodka every 2 days, seizure disorder, with the last episode 3 days ago, and chronic anxiety along with chronic pain from prior herniorrhaphy with complications, status post nerve stimulator implant and replacement who presents to the emergency room for evaluation of (difficulty breathing). Patient is somewhat intoxicated and confused and is able to provide no consistent history whatsoever in terms of acute or chronic events, review of systems, personal habits, family history, etc. is present at his side and is somewhat informative and helpful. No old inpatient records available for review. For the last 2 weeks, he has been primarily lying in bed, telling the emergency room physician that he "did not feel like moving." He has been having fever and cold sweats along with gagging. Right lateral chest discomfort with deep breathing. No diarrhea or dysuria. called EMS. On their arrival, saturation of 70 percentile range on room air. Brought to the emergency room for further evaluation. Was noted to be hypoxic, and in fair amount of respiratory distress. That has improved considerably with treatment so far, including placing patient on BiPAP. No known chronic pulmonary disease, including sleep apneaPatient persists with tachypnea, despite quite acceptable O2 saturation with quite reasonable FiO2. (Called) to the patient's bedside. Somnolent, but arouses reasonably easily. Auscultation of the lungs revealed basically clear breath sounds. However, patient remains tachypneic in the 40-50 range. Repeat chest x-ray was performed , along with arterial blood gas and Chem-7. No evidence of acidosis. Overall concern is that patient is heading for acute respiratory failure with his persistent tachypnea. Decision made to proceed with endotracheal intubation, which is carried out by MOBILE MANAGER without difficulty. Patient tolerated well. At 2: 48 AM I left a generic voicemail message on 's telephone number to please call me at the hospital and that we were planning on proceeding with intubation. Still awaiting callback. Director Regulatory Agency is aware that patient may be calling me back. Suspicion is for alcoholic hepatitis, with history of heavy alcohol use, and AST /ALT ratio greater than or equal to 2. Maddrey score of 39, so ideally would like to proceed with pharmacologic treatment. Uncomfortable proceeding with prednisolone due to likely underlying pneumonia. Second choice is pentoxifylline. Recommendation is not to crush tablet; patient currently intubated, with nasogastric tube in place. Current time 4:25 AM. A few minutes ago, I discussed with nighttime [facility] pharmacist. She did recommend hospital's in-house pharmacy making a special slurry of the medication which could then be infused down the nasogastric tube. She did not recommend simple crushing of the medication due to its extended release characteristics, with infusion down NG tube." I assumed his care Friday morning and found him intubated on mechanical ventilation of SIMV/PRVC 12/450/5.0/80%, RR 30-40, HR 120's ST sustained and RASS = 0 in spite of high dose diprivan, he was able to shake his head y/n to questions and follows commands. uop is minimal, 225ml in last 8 hrs and very dk /haydee in color. His BPs stable, only point hypotensive that i can see ocurred during intubation and was transient. ROS: unobtainable due to patients condition, not clear that he is appropriate with his answers Physical Exam Vital Signs: Temp Pulse Resp BP Pulse Ox 99.5 F 120 H 22 H 108/76 98 02/02/17 08:00 02/02/17 08:34 02/02/17 10:15 02/02/17 09:44 02/02/17 11:41 Intake & Output 02/01/17 02/02/17 02/03/17 06:59 06:59 06:59 Intake Total 1360 Output Total 1025 225 Balance 335 -225 Weight 72.8 kg General appearance: PRESENT: no acute distress, well-developed, well-nourished Head exam: PRESENT: atraumatic, normocephalic Eye exam: PRESENT: conjunctival injection, EOMI. ABSENT: scleral icterus Mouth exam: PRESENT: moist, other - OGT in place with dk brown fluid in canister <100ml: apthous ulcer on lower lip with ecchymosis on his buccal mucosa around lips/os Teeth exam: PRESENT: poor dentation Neck exam: PRESENT: other - ETT in good position with fog in tube. ABSENT: carotid bruit, JVD, lymphadenopathy, tracheal deviation Respiratory exam: PRESENT: accessory muscle use, crackles - coarse throughout, tachypnea. ABSENT: rales, rhonchi, wheezes Cardiovascular exam: PRESENT: tachycardia. ABSENT: systolic murmur Pulses: PRESENT: normal radial pulses, normal dorsalis pedis pul Vascular exam: PRESENT: normal capillary refill GI/Abdominal exam: PRESENT: normal bowel sounds, soft. ABSENT: ascites - no obvious fluid wave, distended - mild protuberant,, firm, tenderness - no grimace to palpation Rectal exam: PRESENT: deferred Gentrourinary exam: PRESENT: indwelling catheter. ABSENT: scrotal swelling Extremities exam: ABSENT: clubbing, pedal edema Musculoskeletal exam: PRESENT: full ROM Neurological exam: PRESENT: alert Psychiatric exam: PRESENT: anxious Skin exam: PRESENT: dry, warm Results Laboratory Results: 02/02/17 06:31 02/02/17 06:31 02/02/17 02/02/17 02/02/17 01:56 02:20 06:31 WBC 15.5 H RBC 2.58 L Hgb 10.0 L Hct 29.3 L MCV 113 H MCH 38.8 H MCHC 34.2 RDW 15.3 H Plt Count 65 L Seg Neutrophils % Not Reportable Lymphocytes % Not Reportable Monocytes % Not Reportable Eosinophils % Not Reportable Basophils % Not Reportable Absolute Neutrophils Not Reportable Absolute Lymphocytes Not Reportable Absolute Monocytes Not Reportable Absolute Eosinophils Not Reportable Absolute Basophils Not Reportable Carbonic Acid 1.06 HCO3/H2CO3 Ratio 26:1 ABG pH 7.52 H ABG pCO2 35.2 ABG pO2 72.8 L ABG HCO3 27.8 H ABG O2 Saturation 96.0 ABG Base Excess 4.8 FiO2 50% Sodium 136.0 L Potassium 3.6 Chloride 99 Carbon Dioxide 28 Anion Gap 9 BUN 12 Creatinine 0.45 L Est GFR ( Amer) > 60 Est GFR (Non-Af Amer) > 60 Glucose 123 H Calcium 7.4 L Magnesium Total Bilirubin AST ALT Alkaline Phosphatase Total Protein Albumin 02/02/17 02/02/17 06:31 07:45 WBC RBC Hgb Hct MCV MCH MCHC RDW Plt Count Seg Neutrophils % Lymphocytes % Monocytes % Eosinophils % Basophils % Absolute Neutrophils Absolute Lymphocytes Absolute Monocytes Absolute Eosinophils Absolute Basophils Carbonic Acid 0.93 L HCO3/H2CO3 Ratio 24:1 ABG pH 7.48 H ABG pCO2 30.9 L ABG pO2 88.0 ABG HCO3 22.6 ABG O2 Saturation 97.4 ABG Base Excess -0.3 FiO2 80% Sodium 135.5 L Potassium 3.3 L Chloride 100 Carbon Dioxide 26 Anion Gap 10 BUN 12 Creatinine 0.47 L Est GFR ( Amer) > 60 Est GFR (Non-Af Amer) > 60 Glucose 84 Calcium 6.8 L* Magnesium 1.8 Total Bilirubin 2.8 H AST 95 H ALT 29 Alkaline Phosphatase 200 H Total Protein 5.8 L Albumin 2.6 L 02/02/17 06:31 NT-Pro-B Natriuret Pep 1170 H EKG Comments: sinus tach, no ischemic changes and QTc not prolonged Impressions: Abdomen Ultrasound 02/01/17 00:00 IMPRESSION: Limited examination due to body habitus and intervening bowel gas resulting in acoustic impedance. Prominent liver demonstrating coarsened, predominantly hyperechoic parenchyma is consistent with acute alcoholic hepatitis. Differential considerations including infectious hepatitis and neoplastic processes are felt to be much less likely. Chest/Abdomen CTA 02/01/17 15:13 IMPRESSION: 1. No evidence of pulmonary embolus. 2. Diffuse ground-glass opacities of the lungs. This is a nonspecific finding ; differential considerations include atypical pneumonitis, pulmonary edema, interstitial pneumonia, drug reaction, or other. Abdomen/Pelvis CT 02/01/17 16:01 IMPRESSION: Markedly abnormal appearance of the liver demonstrating heterogeneous, predominantly decreased attenuation. Differential considerations include hepatitis, toxic hepatic injury, neoplasm, or other. Background of mesenteric fat stranding. Status: Image reviewed by me - agree with rads, very nonspecific findings in the liver and lungs but clearly bilat airspace disease and "smudginess" to the parenchyma suggesting edema Assessment & Plan - Diagnosis (1) Pneumonia Qualifiers: Pneumonia type: aspiration pneumonia Laterality: bilateral Lung location: unspecified part of lung Is this a current diagnosis for this admission?: YesPlan: possibly aspiration due to reported seizure in the last week. continue unasyn and vanc but add zithromax for atypical coverage. f/u cultures when available. (2) ARDS (adult respiratory distress syndrome) Is this a current diagnosis for this admission?: YesPlan: by [place] criteria; inciting event is the pneumonia, he has no other explanation for the bilat pulm edema evident and meets moderate severity based on PaO2/FiO2 ratio = 146 on ABG taken at 02:20. dr oreilly consulted but management will be problematic and largely supportive as we treat the inciting event. High PEEP or tidal volumes are fraught with danger due to bullous emphysema seen on CT chest. Would like to keep him on the dry side but his urine output is poor and his HR too high with recent poor oral intake and ETOH as his primary caloric intake. (3) Sepsis Qualifiers: Sepsis type: sepsis due to unspecified organism Qualified Code(s): A41.9 - Sepsis, unspecified organism Is this a current diagnosis for this admission?: YesPlan: treat the underlying problem and monitor for response (4) Acute respiratory failure with hypoxia Is this a current diagnosis for this admission?: YesPlan: continue intubation and mechanical ventilation but data clearly indicates no need to push O2 sats, in fact high FiO2 often asct'd with poorer outcomes. defer to pulmonary. (5) Hypocalcemia Is this a current diagnosis for this admission?: YesPlan: 2/2 poor oral intake, nearly corrects with low albumin. (6) Hypoalbuminemia due to protein-calorie malnutrition Is this a current diagnosis for this admission?: YesPlan: primary oral intake is ETOH (7) Elevated brain natriuretic peptide (BNP) level Is this a current diagnosis for this admission?: YesPlan: possibly cardiac dysfunction due to sepsis, ck echo and monitor cardiac output (8) Abnormal CT of liver Is this a current diagnosis for this admission?: Yes (9) Alcohol intoxication Qualifiers: Complication of substance-induced condition: with unspecified complication Qualified Code(s): F10.929 - Alcohol use, unspecified with intoxication , unspecified Is this a current diagnosis for this admission?: YesPlan: continue thiamine and monitor for withdrawal; change sedation to versed gtt and wean off diprivan (10) Hypokalemia Is this a current diagnosis for this admission?: YesPlan: continue to monitor and replace (11) Thrombocytopenia Is this a current diagnosis for this admission?: YesPlan: 2/2 ETOH toxicity but precludes DVT pharmacologic prophylaxis (12) Alcohol dependence Qualifiers: Substance use status: with intoxication Is this a current diagnosis for this admission?: Yes (13) Chronic pain following surgery or procedure Is this a current diagnosis for this admission?: Yes (14) Seizure disorder Is this a current diagnosis for this admission?: YesPlan: therapeutic dilantin level, monitor and replace lytes, seizure precautions (15) Tobacco dependence Is this a current diagnosis for this admission?: Yes (16) Alcoholic hepatitis Qualifiers: Ascites presence: without ascites Qualified Code(s): K70.10 - Alcoholic hepatitis without ascites Is this a current diagnosis for this admission?: YesPlan: presumed diagnosis but given the severely abnl imaging and lab abnl's will send for EBV titers, Hep ABC, HIV, alpha fetoprotein. no GI coverage until Friday. - Time Time Spent with patient: 35 or more minutes Medications reviewed and adjusted accordingly: Yes - Plan Summary Plan Summary: prognosis guarded
[2017-02-02] MEDS: VANCOMYCIN HCL 1,250 MG in DEXTROSE 5%-WATER 250 ML IV SCH ×3 (12:43→23:03)
[2017-02-02] MEDS: NORMAL SALINE 1000 ML 1,000 ML IV PRN (12:43)
[2017-02-02] MEDS: MIDAZOLAM HCL 100 ML IV PRN ×2 (14:04→19:07)
[2017-02-02] MEDS ORDERED: ACETAMINOPHEN 650 MG SUPP.RECT PR PRN (14:37)
[2017-02-02] MEDS ORDERED: ACETAMINOPHEN 650 MG SUPP.RECT PR ONE (14:39)
[2017-02-02 15:28] LABS: ANION GAP 7 (5-19); BLOOD UREA NITROGEN 11 mg/dL (7-20); CARBON DIOXIDE 28 mmol/L (22-30); CHLORIDE 99 mmol/L (98-107); CREATININE RESULT 0.46 mg/dL (0.52-1.25); GLUCOSE 106 mg/dL (75-110); SODIUM 134.3 mmol/L (137-145)
[2017-02-02 15:41] LABS: CALCIUM 6.7 mg/dL (8.4-10.2)
[2017-02-02] MEDS ORDERED: POTASSI CL 20 MEQ/50 ML RIDER 50 ML IV ONE (16:45)
[2017-02-02] MEDS ORDERED: CALCIUM GLUCONATE 1000 MG/10 ML INJ IV ONE (17:00)
[2017-02-02] MEDS ORDERED: MAGNESIUM SULFATE/D5W 100 ML IV ONE (17:15)
--- NOTE | 2017-02-02 17:36 | PDOC CONSULTATION ---
Consultation Consult Date: 02/02/17 Attending physician:: SADAF PARADA Consult reason:: acute resp failure/pna History of Present Illness Admission Date/PCP: 02/01/17 20:46 History of Present Illness: all information from chart,HERI LAWRENCE is a 36 year old male who presented to ED with SAO2 70% and in resp distress he was started on bipap with some improvment.He was confused and intoxicated reportedly had not gotton out of bed in two weeks,he had complained of chills,fever,and right sided inspiratory chest pain.He consumes three-quarter pack a day smoker, fifth of vodka every 2 days.He also has a history of seizure disorder, with the last episode 3 days ago, and chronic anxiety along with chronic pain from prior herniorrhaphy with complications, status post nerve stimulator implant.He is currently intubated and sedated no reporyed ET aspirate abnomal CT chest. Past Medical History Cardiac Medical History: Denies: Atrial Fibrillation, Congestive Heart Failure, Coronary Artery Disease, DVT, Myocardial Infarction, Hyperlipidema, Hypertension, Pulmonary Embolism Pulmonary Medical History: Denies: Asthma, Chronic Obstructive Pulmonary Disease (COPD), Sleep Apnea, Tuberculosis EENT Medical History: Reports: Other - Easy bruising Denies: Eyes, Ears, Throat Neurological Medical History: Reports: Seizures Denies: Hemorrhagic CVA, Ischemic CVA Endocrine Medical History: Denies: Diabetes Mellitus Type 1, Diabetes Mellitus Type 2, Hyperthyroidism, Hypothyroidism Renal/ Medical History: Reports: None GI Medical History: Reports: Other - Heartburn Denies: Cirrhosis, Hepatitis, Peptic Ulcer Disease Musculoskeltal Medical History: Denies: Arthritis Skin Medical History: Reports: None Psychiatric Medical History: Reports: Alcohol Dependency, General Anxiety Disorder, Tobacco Dependency Denies: Depression, Substance Abuse Hematology: Reports: Other - Easy bruising Infectious Medical History: Denies: Hepatitis B, Hepatitis C Past Surgical History Past Surgical History: Reports: Herniorrhaphy - With chronic postop pain, Other - Nerve stimulator implant; relocation posteriorly 6 months ago. Denies: Pacemaker Social History Lives with: Spouse/Significant other Smoking Status: Current Every Day Smoker Cigarettes Packs Per Day: 1 Passive smoke exposure as: Both Frequency of Alcohol Use: Heavy - Fifth of vodka every 2 days Hx Recreational Drug Use: No Drugs: None Hx Prescription Drug Abuse: No - Advance Directive Resuscitation Status: Full Code Family History Family History: None, Other Parental Family History Reviewed: No Children Family History Reviewed: No Sibling(s) Family History Reviewed.: No Medication/Allergy Home Medications: Oxycodone HCl [Oxycodone HCl 10 MG Tablet] 10 mg PO Q6HP PRN 02/02/17 Phenytoin Sodium Extended [Dilantin 100 mg Capsule.er] 300 mg PO QHS 02/02/17 Zolpidem Tartrate [Ambien] 10 mg PO QHS 02/02/17 Allergies/Adverse Reactions: hydrocodone bitartrate [From Vicodin] Adverse Reaction (Intermediate, Verified 12/04/15 06:47) Review of Systems ROS unobtainable: Due to endotracheal tube, Due to mental status Physical Exam Vital Signs: Temp Pulse Resp BP Pulse Ox 99.5 F 120 H 40 H 122/81 96 02/02/17 08:00 02/02/17 08:00 02/02/17 08:00 02/02/17 08:00 02/02/17 08:00 Intake & Output 02/01/17 02/02/17 02/03/17 06:59 06:59 06:59 Intake Total 1360 Output Total 1025 Balance 335 Weight 72.8 kg General appearance: PRESENT: no acute distress, disheveled, thin, well-developed Head exam: PRESENT: atraumatic, normocephalic Eye exam: PRESENT: conjunctiva pale Mouth exam: PRESENT: dry mucosa, neck supple, tongue midline, other - ET tube Neck exam: ABSENT: carotid bruit, JVD, lymphadenopathy, thyromegaly Respiratory exam: PRESENT: rhonchi, symmetrical, unlabored, wheezes Cardiovascular exam: PRESENT: RRR, +S1, +S2 Pulses: PRESENT: normal radial pulses GI/Abdominal exam: PRESENT: diminished bowel sounds, soft. ABSENT: distended, guarding, mass, organolmegaly, rebound, tenderness Rectal exam: PRESENT: deferred Gentrourinary exam: PRESENT: indwelling catheter Musculoskeletal exam: PRESENT: normal inspection Skin exam: PRESENT: dry, warm Results Laboratory Results: 02/02/17 06:31 02/02/17 06:31 02/02/17 02/02/17 02/02/17 01:56 02:20 06:31 WBC 15.5 H RBC 2.58 L Hgb 10.0 L Hct 29.3 L MCV 113 H MCH 38.8 H MCHC 34.2 RDW 15.3 H Plt Count 65 L Seg Neutrophils % Not Reportable Lymphocytes % Not Reportable Monocytes % Not Reportable Eosinophils % Not Reportable Basophils % Not Reportable Absolute Neutrophils Not Reportable Absolute Lymphocytes Not Reportable Absolute Monocytes Not Reportable Absolute Eosinophils Not Reportable Absolute Basophils Not Reportable Carbonic Acid 1.06 HCO3/H2CO3 Ratio 26:1 ABG pH 7.52 H ABG pCO2 35.2 ABG pO2 72.8 L ABG HCO3 27.8 H ABG O2 Saturation 96.0 ABG Base Excess 4.8 FiO2 50% Sodium 136.0 L Potassium 3.6 Chloride 99 Carbon Dioxide 28 Anion Gap 9 BUN 12 Creatinine 0.45 L Est GFR ( Amer) > 60 Est GFR (Non-Af Amer) > 60 Glucose 123 H Calcium 7.4 L Magnesium Total Bilirubin AST ALT Alkaline Phosphatase Total Protein Albumin 02/02/17 02/02/17 06:31 07:45 WBC RBC Hgb Hct MCV MCH MCHC RDW Plt Count Seg Neutrophils % Lymphocytes % Monocytes % Eosinophils % Basophils % Absolute Neutrophils Absolute Lymphocytes Absolute Monocytes Absolute Eosinophils Absolute Basophils Carbonic Acid 0.93 L HCO3/H2CO3 Ratio 24:1 ABG pH 7.48 H ABG pCO2 30.9 L ABG pO2 88.0 ABG HCO3 22.6 ABG O2 Saturation 97.4 ABG Base Excess -0.3 FiO2 80% Sodium 135.5 L Potassium 3.3 L Chloride 100 Carbon Dioxide 26 Anion Gap 10 BUN 12 Creatinine 0.47 L Est GFR ( Amer) > 60 Est GFR (Non-Af Amer) > 60 Glucose 84 Calcium 6.8 L* Magnesium 1.8 Total Bilirubin 2.8 H AST 95 H ALT 29 Alkaline Phosphatase 200 H Total Protein 5.8 L Albumin 2.6 L 02/02/17 06:31 NT-Pro-B Natriuret Pep 1170 H Impressions: Abdomen Ultrasound 02/01/17 00:00 IMPRESSION: Limited examination due to body habitus and intervening bowel gas resulting in acoustic impedance. Prominent liver demonstrating coarsened, predominantly hyperechoic parenchyma is consistent with acute alcoholic hepatitis. Differential considerations including infectious hepatitis and neoplastic processes are felt to be much less likely. Chest/Abdomen CTA 02/01/17 15:13 IMPRESSION: 1. No evidence of pulmonary embolus. 2. Diffuse ground-glass opacities of the lungs. This is a nonspecific finding ; differential considerations include atypical pneumonitis, pulmonary edema, interstitial pneumonia, drug reaction, or other. Abdomen/Pelvis CT 02/01/17 16:01 IMPRESSION: Markedly abnormal appearance of the liver demonstrating heterogeneous, predominantly decreased attenuation. Differential considerations include hepatitis, toxic hepatic injury, neoplasm, or other. Background of mesenteric fat stranding. Assessment & Plan - Diagnosis (1) ARDS (adult respiratory distress syndrome) Is this a current diagnosis for this admission?: YesPlan: 88/.8 PAO2/FIO2 c/w ARDS;diffuse GGO bullous lung disease >at apex increase PEEPand I time effort torecruit alveoli and decrease FIO2 (2) Abnormal CT of liver Is this a current diagnosis for this admission?: Yes (3) Acute respiratory failure with hypoxia Is this a current diagnosis for this admission?: YesPlan: increase PEEP + I Time PAO2/FIO2 ratio c/w ARDS (4) Coagulopathy Is this a current diagnosis for this admission?: Yes (5) Thrombocytopenia Is this a current diagnosis for this admission?: YesPlan: 2nd to prolonged alcohol exsposure (6) Chronic pain following surgery or procedure Is this a current diagnosis for this admission?: Yes (7) Tobacco dependence Is this a current diagnosis for this admission?: YesPlan: transdermal nicotene - Time Critical Time spent with patient: 35 or more minutes - spoke with RN,RT 55 min
[2017-02-02] MEDS: NORMAL SALINE 1000 ML 1,000 ML with THIAMINE HCL 100 MG, MVI, ADULT NO.1 WITH VIT K 10 ... IV SCH ×4 (18:37)
[2017-02-02] MEDS: CIPROFLOXACIN HCL 0.3% OPH SOLN 2.5 ML OU SCH ×2 (18:37→23:04)
--- NOTE | 2017-02-02 19:07 | RADIOLOGY REPORT (SQ) ---
EXAM DESCRIPTION: CHEST SINGLE VIEW COMPLETED DATE/TIME: 02/02/2017 6:17 pm REASON FOR STUDY: TLC PLACEMENT COMPARISON: 02/01/2017 and 02/02/2017 EXAM PARAMETERS: NUMBER OF VIEWS: One view. TECHNIQUE: Single frontal radiographic view of the chest acquired. RADIATION DOSE: NA LIMITATIONS: None. FINDINGS: LUNGS AND PLEURA: Similar appearance of ground-glass and increased interstitial opacities bilaterally. Paraseptal cystic changes at the right apex are stable. No significant effusion. MEDIASTINUM AND HILAR STRUCTURES: Stable. HEART AND VASCULAR STRUCTURES: Stable. BONES: No acute findings. HARDWARE: Nasogastric catheter tip overlies the body of the stomach. The inferior tip of the endotra cheal tube appears over the mid trachea similar to the previous study. OTHER: No other significant finding. IMPRESSION: Similar appearance of ground-glass and increased interstitial opacities bilaterally. Pa raseptal cystic changes at the right apex are stable. Tubes and lines appear stable. TECHNICAL DOCUMENTATION: JOB ID: [id number]
--- NOTE | 2017-02-02 19:27 | OPERATIVE REPORT E ---
Operative Report NAME: HERI LAWRENCE : 1980 AGE: 36Y DATE OF SURGERY: 02/02/2017 ROOM: 612 PREOPERATIVE DIAGNOSIS: Poor veins for IV access and postintubation. POSTOPERATIVE DIAGNOSIS: Poor veins for IV access and postintubation. OPERATIONS: Placement of right subclavian vein triple-lumen catheter. SURGEON: KAROLINA CHOPRA M.D. ANESTHESIA: Local MAC. INDICATION: This is a 36-year-old male admitted for ethanol intoxication, has been intubated and needed IV access. DESCRIPTION OF PROCEDURE: After adequate propofol sedation, the patient placed in Trendelenburg position and the right chest prepped and draped in the usual sterile fashion. Local anesthesia infiltrated at the right infraclavicular area and right subclavian vein subsequently punctured and a guidewire passed through the needle into the superior vena cava. The needle was removed and puncture site enlarged. A triple-lumen catheter was then inserted through the guidewire into the superior vena cava and inserted up to about 15 cm. Next, the ports were irrigated and aspirated blood easily and irrigated saline easily. The catheter was then anchored to the skin with 3-0 silk. A Biopatch was placed at the entry site and a sterile dressing was placed over the catheter. The patient tolerated the procedure well. A chest x-ray was obtained in the recovery room and appears that the catheter was right in the superior vena cava and the right atrium with no evidence of pneumothorax. DICTATING PHYSICIAN: KAROLINA CHOPRA M.D. [id number] PHY#: [id number] ID: [id number] JOB#: [id number] ACCT: [id number] cc:KAROLINA CHOPRA M.D. >
[2017-02-03] MEDS: MIDAZOLAM HCL 100 ML IV PRN ×6 (00:49→22:21)
[2017-02-03] MEDS: IPRATROPIUM/ALBUTEROL 0.5-2.5 MG/3 ML AMPUL NEB SCH ×4 (02:05→19:44)
[2017-02-03] MEDS: AMPICILLIN SODIUM/SULBACTAM NA 3 GM in NORMAL SALINE 100 ML IV SCH ×2 (02:27→08:25)
[2017-02-03] MEDS: SUCRALFATE SUSP 1 GM/10 ML UDCUP NG SCH ×4 (02:29→20:21)
[2017-02-03] MEDS: NORMAL SALINE 1000 ML 1,000 ML IV PRN ×2 (02:31→14:29)
[2017-02-03] MEDS: HYDROMORPHONE HCL INJ/PF 2 MG/ML AMPULE IV PRN ×4 (02:54→20:03)
[2017-02-03 06:00] LABS: ARTERIAL BLOOD O2 SATURATION 90.9 % (94-98)
[2017-02-03 06:04] LABS: PROTHROMBIN TIME 21.4 SEC (11.4-15.4)
[2017-02-03 06:08] LABS: ABSOLUTE BASOPHILS # (AUTO) 0.1 10^3/uL (0.0-0.2); ABSOLUTE EOSINOPHILS # (AUTO) 0.4 10^3/uL (0.0-0.6); ABSOLUTE LYMPHOCYTES (AUTO) 1.4 10^3/uL (0.5-4.7); ABSOLUTE MONOCYTES (AUTO) 0.3 10^3/uL (0.1-1.4); ABSOLUTE NEUT (AUTO) 8.4 10^3/uL (1.7-8.2); BASOPHILS % (AUTO) 0.7 % (0-2); EOSINOPHILS % (AUTO) 3.4 % (0-6); HEMOGLOBIN 9.2 g/dL (13.5-17.0); HGB HCT DIFFERENCE 1.6; LYMPHOCYTES % (AUTO) 13.6 % (13-45); MEAN CORPUSCULAR HEMOGLOBIN 40.1 pg (27.0-33.4); MEAN CORPUSCULAR HGB CONC 35.4 g/dL (32.0-36.0); MEAN CORPUSCULAR VOLUME 113 fl (80-97); MONOCYTES % (AUTO) 3.2 % (3-13); RED BLOOD COUNT 2.29 10^6/uL (4.35-5.55); RED CELL DISTRIBUTION WIDTH 15.5 % (11.5-14.0); SEGMENTED NEUTROPHILS % (AUTO) 79.1 % (42-78); WHITE BLOOD COUNT 10.7 10^3/uL (4.0-10.5)
[2017-02-03 06:10] LABS: ALANINE AMINOTRANSFERASE 30 U/L (21-72); ALBUMIN 2.2 g/dL (3.5-5.0); ALKALINE PHOSPHATASE 188 U/L (38-126); ASPARTATE AMINO TRANSFERASE 56 U/L (17-59); BILIRUBIN,DIRECT 1.8 mg/dL (0.0-0.4); BLOOD UREA NITROGEN 9 mg/dL (7-20); CARBON DIOXIDE 29 mmol/L (22-30); CHLORIDE 102 mmol/L (98-107); CREATININE RESULT 0.45 mg/dL (0.52-1.25); GLUCOSE 79 mg/dL (75-110); PHOSPHORUS 1.2 mg/dL (2.5-4.5); TOTAL PROTEIN 5.3 g/dL (6.3-8.2); TRIGLYCERIDES 133 mg/dL (<150)
[2017-02-03 06:21] LABS: ANION GAP 5 (5-19); SODIUM 135.8 mmol/L (137-145)
[2017-02-03 06:25] LABS: CALCIUM 6.7 mg/dL (8.4-10.2); POTASSIUM 2.9 mmol/L (3.6-5.0)
[2017-02-03] MEDS: VANCOMYCIN HCL 1,250 MG in DEXTROSE 5%-WATER 250 ML IV SCH ×4 (06:32→23:19)
[2017-02-03] MEDS: PROPOFOL 100 ML IV PRN ×3 (06:32→22:22)
[2017-02-03] MEDS: PHENYTOIN SODIUM INJ/PF 100 MG/2 ML SDV IV SCH ×3 (06:47→22:20)
[2017-02-03] MEDS: CIPROFLOXACIN HCL 0.3% OPH SOLN 2.5 ML OU SCH ×4 (06:48→23:21)
--- NOTE | 2017-02-03 07:39 | RADIOLOGY REPORT (SQ) ---
EXAM DESCRIPTION: CHEST SINGLE VIEW COMPLETED DATE/TIME: 02/03/2017 6:51 am REASON FOR STUDY: f/u pneumonia COMPARISON: 05.03.16. EXAM PARAMETERS: NUMBER OF VIEWS: One view. TECHNIQUE: Single frontal radiographic view of the chest acquired. RADIATION DOSE: NA LIMITATIONS: None. FINDINGS: LUNGS AND PLEURA: No opacities, masses or pneumothorax. No pleural effusion. MEDIASTINUM AND HILAR STRUCTURES: No masses. Contour normal. HEART AND VASCULAR STRUCTURES: Heart normal in size. Normal vasculature. BONES: No acute findings. HARDWARE: None in the chest. OTHER: No other significant finding. IMPRESSION: NO ACUTE RADIOGRAPHIC FINDING IN THE CHEST. TECHNICAL DOCUMENTATION: JOB ID: [id number]
[2017-02-03] MEDS ORDERED: CALCIUM GLUCONATE 1000 MG/10 ML INJ IV ONE ×2 (08:00→17:30)
[2017-02-03] MEDS: POTASSI CL 20 MEQ/50 ML RIDER 20 MEQ/50 ML RTUPB IV SCH ×3 (08:26→14:28)
[2017-02-03] MEDS ORDERED: ACETAMINOPHEN 650 MG SUPP.RECT PR PRN (08:44)
[2017-02-03] MEDS: PANTOPRAZOLE SODIUM 40 MG VIAL IV SCH ×2 (09:00→22:20)
[2017-02-03] MEDS ORDERED: POTASSIUM PHOS,M-BASIC-D-BASIC 60 MMOL in NORMAL SALINE 1000 ML 1,000 ML IV ONE (09:00)
[2017-02-03] MEDS: LACTULOSE SYRUP 20 GM/30 ML UDCUP NG SCH ×3 (09:00→17:51)
--- NOTE | 2017-02-03 09:20 | PDOC PROGRESS REPORT ---
Subjective Progress Note for:: 02/03/17 Subjective:: intubated and sedated Physical Exam Vital Signs: Temp Pulse Resp BP Pulse Ox 100.4 F 119 H 25 H 129/80 H 97 02/03/17 07:46 02/03/17 07:46 02/03/17 07:46 02/03/17 07:46 02/03/17 07:46 Intake & Output 02/02/17 02/03/17 02/04/17 06:59 06:59 06:59 Intake Total 1360 6185 Output Total 1025 1710 125 Balance 335 4475 -125 Weight 72.8 kg 80 kg General appearance: PRESENT: no acute distress, disheveled, thin, well-developed Head exam: PRESENT: atraumatic, normocephalic Eye exam: PRESENT: conjunctiva pale Mouth exam: PRESENT: dry mucosa, neck supple, tongue midline, other - ET tube d# 2 Neck exam: PRESENT: carotid bruit Respiratory exam: PRESENT: decreased breath sounds, rales, rhonchi, symmetrical , unlabored Cardiovascular exam: PRESENT: RRR, +S1, +S2 Pulses: PRESENT: normal radial pulses GI/Abdominal exam: PRESENT: diminished bowel sounds, soft. ABSENT: distended, guarding, mass, organolmegaly, rebound, tenderness Rectal exam: PRESENT: deferred Gentrourinary exam: PRESENT: indwelling catheter Musculoskeletal exam: PRESENT: normal inspection Skin exam: PRESENT: dry, warm, other - areas of eccymosis Results Laboratory Results: 02/03/17 05:40 02/03/17 05:40 02/02/17 02/02/17 02/02/17 07:45 15:08 15:08 WBC RBC Hgb Hct MCV MCH MCHC RDW Plt Count Seg Neutrophils % Lymphocytes % Monocytes % Eosinophils % Basophils % Absolute Neutrophils Absolute Lymphocytes Absolute Monocytes Absolute Eosinophils Absolute Basophils Carbonic Acid 0.93 L HCO3/H2CO3 Ratio 24:1 ABG pH 7.48 H ABG pCO2 30.9 L ABG pO2 88.0 ABG HCO3 22.6 ABG O2 Saturation 97.4 ABG Base Excess -0.3 FiO2 80% Sodium 134.3 L Potassium 3.0 L* Chloride 99 Carbon Dioxide 28 Anion Gap 7 BUN 11 Creatinine 0.46 L Est GFR ( Amer) > 60 Est GFR (Non-Af Amer) > 60 Glucose 106 Lactic Acid Calcium 6.7 L* Phosphorus Magnesium Total Bilirubin AST ALT Alkaline Phosphatase Ammonia Total Protein Albumin 2.5 L Triglycerides 02/03/17 02/03/17 02/03/17 05:40 05:40 05:40 WBC 10.7 H RBC 2.29 L Hgb 9.2 L Hct 26.0 L MCV 113 H MCH 40.1 H MCHC 35.4 RDW 15.5 H Plt Count 43 L Seg Neutrophils % 79.1 H Lymphocytes % 13.6 Monocytes % 3.2 Eosinophils % 3.4 Basophils % 0.7 Absolute Neutrophils 8.4 H Absolute Lymphocytes 1.4 Absolute Monocytes 0.3 Absolute Eosinophils 0.4 Absolute Basophils 0.1 Carbonic Acid 1.11 HCO3/H2CO3 Ratio 24:1 ABG pH 7.49 H ABG pCO2 36.8 ABG pO2 54.6 L ABG HCO3 27.5 H ABG O2 Saturation 90.9 L ABG Base Excess 4.0 FiO2 50% Sodium Potassium Chloride Carbon Dioxide Anion Gap BUN Creatinine Est GFR ( Amer) Est GFR (Non-Af Amer) Glucose Lactic Acid Calcium Phosphorus Magnesium Total Bilirubin AST ALT Alkaline Phosphatase Ammonia 43.2 H Total Protein Albumin Triglycerides 02/03/17 02/03/17 05:40 05:40 WBC RBC Hgb Hct MCV MCH MCHC RDW Plt Count Seg Neutrophils % Lymphocytes % Monocytes % Eosinophils % Basophils % Absolute Neutrophils Absolute Lymphocytes Absolute Monocytes Absolute Eosinophils Absolute Basophils Carbonic Acid HCO3/H2CO3 Ratio ABG pH ABG pCO2 ABG pO2 ABG HCO3 ABG O2 Saturation ABG Base Excess FiO2 Sodium 135.8 L Potassium 2.9 L* Chloride 102 Carbon Dioxide 29 Anion Gap 5 BUN 9 Creatinine 0.45 L Est GFR ( Amer) > 60 Est GFR (Non-Af Amer) > 60 Glucose 79 Lactic Acid 1.5 Calcium 6.7 L* Phosphorus 1.2 L Magnesium 2.0 Total Bilirubin 3.0 H AST 56 ALT 30 Alkaline Phosphatase 188 H Ammonia Total Protein 5.3 L Albumin 2.2 L Triglycerides 133 02/02/17 02/03/17 06:31 05:40 NT-Pro-B Natriuret Pep 1170 H 594 H Impressions: Abdomen Ultrasound 02/01/17 00:00 IMPRESSION: Limited examination due to body habitus and intervening bowel gas resulting in acoustic impedance. Prominent liver demonstrating coarsened, predominantly hyperechoic parenchyma is consistent with acute alcoholic hepatitis. Differential considerations including infectious hepatitis and neoplastic processes are felt to be much less likely. Chest/Abdomen CTA 02/01/17 15:13 IMPRESSION: 1. No evidence of pulmonary embolus. 2. Diffuse ground-glass opacities of the lungs. This is a nonspecific finding ; differential considerations include atypical pneumonitis, pulmonary edema, interstitial pneumonia, drug reaction, or other. Abdomen/Pelvis CT 02/01/17 16:01 IMPRESSION: Markedly abnormal appearance of the liver demonstrating heterogeneous, predominantly decreased attenuation. Differential considerations include hepatitis, toxic hepatic injury, neoplasm, or other. Background of mesenteric fat stranding. Chest X-Ray 02/03/17 06:00 IMPRESSION: NO ACUTE RADIOGRAPHIC FINDING IN THE CHEST. Assessment & Plan - Diagnosis (1) ARDS (adult respiratory distress syndrome) Is this a current diagnosis for this admission?: Yes (2) Abnormal CT of liver Is this a current diagnosis for this admission?: Yes (3) Acute respiratory failure with hypoxia Is this a current diagnosis for this admission?: YesPlan: increase PEEP + I Time PAO2/FIO2 ratio c/w ARDS will proceed to FOB (4) Coagulopathy Is this a current diagnosis for this admission?: Yes (5) Thrombocytopenia Is this a current diagnosis for this admission?: Yes (6) Chronic pain following surgery or procedure Is this a current diagnosis for this admission?: Yes (7) Tobacco dependence Is this a current diagnosis for this admission?: Yes - Time Critical Time spent with patient: 35 or more minutes - rt rn pcp 50 min
[2017-02-03] MEDS ORDERED: LIDOCAINE 1% INJ-PF (10 MG/ML) 30 ML SDV ONE (09:52)
[2017-02-03] MEDS ORDERED: CEFEPIME 2 GM/D5W RTU 50 ML IV SCH (10:00)
--- NOTE | 2017-02-03 10:51 | PDOC PROGRESS REPORT ---
Subjective Progress Note for:: 02/03/17 Subjective:: intubated and sedated Physical Exam Vital Signs: Temp Pulse Resp BP Pulse Ox 100.4 F 116 H 22 H 129/80 H 100 02/03/17 07:46 02/03/17 08:40 02/03/17 08:40 02/03/17 07:46 02/03/17 08:40 Intake & Output 02/02/17 02/03/17 02/04/17 06:59 06:59 06:59 Intake Total 1360 6185 Output Total 1025 1710 125 Balance 335 4475 -125 Weight 72.8 kg 80 kg General appearance: PRESENT: no acute distress, thin Head exam: PRESENT: atraumatic, normocephalic Eye exam: PRESENT: conjunctiva pale Mouth exam: PRESENT: dry mucosa, neck supple, tongue midline, other - ET tube in place day #2 Neck exam: ABSENT: carotid bruit, JVD, lymphadenopathy, thyromegaly Respiratory exam: PRESENT: decreased breath sounds, prolonged expiratory phas, rhonchi, symmetrical, unlabored Cardiovascular exam: PRESENT: RRR, +S1, +S2 Pulses: PRESENT: normal radial pulses - [id number] Rectal exam: PRESENT: deferred Gentrourinary exam: PRESENT: indwelling catheter Musculoskeletal exam: PRESENT: normal inspection Skin exam: PRESENT: dry, warm Results Laboratory Results: 02/03/17 05:40 02/03/17 05:40 02/02/17 02/02/17 02/03/17 15:08 15:08 05:40 WBC RBC Hgb Hct MCV MCH MCHC RDW Plt Count Seg Neutrophils % Lymphocytes % Monocytes % Eosinophils % Basophils % Absolute Neutrophils Absolute Lymphocytes Absolute Monocytes Absolute Eosinophils Absolute Basophils Retic Count (auto) Absolute Retic Carbonic Acid HCO3/H2CO3 Ratio ABG pH ABG pCO2 ABG pO2 ABG HCO3 ABG O2 Saturation ABG Base Excess FiO2 Sodium 134.3 L Potassium 3.0 L* Chloride 99 Carbon Dioxide 28 Anion Gap 7 BUN 11 Creatinine 0.46 L Est GFR ( Amer) > 60 Est GFR (Non-Af Amer) > 60 Glucose 106 Lactic Acid Calcium 6.7 L* Phosphorus Magnesium Iron TIBC % Saturation Ferritin Total Bilirubin AST ALT Alkaline Phosphatase Ammonia 43.2 H Total Protein Albumin 2.5 L Triglycerides Vitamin B12 Folate 02/03/17 02/03/17 02/03/17 05:40 05:40 05:40 WBC 10.7 H RBC 2.29 L Hgb 9.2 L Hct 26.0 L MCV 113 H MCH 40.1 H MCHC 35.4 RDW 15.5 H Plt Count 43 L Seg Neutrophils % 79.1 H Lymphocytes % 13.6 Monocytes % 3.2 Eosinophils % 3.4 Basophils % 0.7 Absolute Neutrophils 8.4 H Absolute Lymphocytes 1.4 Absolute Monocytes 0.3 Absolute Eosinophils 0.4 Absolute Basophils 0.1 Retic Count (auto) Absolute Retic Carbonic Acid 1.11 HCO3/H2CO3 Ratio 24:1 ABG pH 7.49 H ABG pCO2 36.8 ABG pO2 54.6 L ABG HCO3 27.5 H ABG O2 Saturation 90.9 L ABG Base Excess 4.0 FiO2 50% Sodium 135.8 L Potassium 2.9 L* Chloride 102 Carbon Dioxide 29 Anion Gap 5 BUN 9 Creatinine 0.45 L Est GFR ( Amer) > 60 Est GFR (Non-Af Amer) > 60 Glucose 79 Lactic Acid Calcium 6.7 L* Phosphorus 1.2 L Magnesium 2.0 Iron TIBC % Saturation Ferritin Total Bilirubin 3.0 H AST 56 ALT 30 Alkaline Phosphatase 188 H Ammonia Total Protein 5.3 L Albumin 2.2 L Triglycerides 133 Vitamin B12 Folate 02/03/17 02/03/17 02/03/17 05:40 05:40 07:28 WBC RBC Hgb Hct MCV MCH MCHC RDW Plt Count Seg Neutrophils % Lymphocytes % Monocytes % Eosinophils % Basophils % Absolute Neutrophils Absolute Lymphocytes Absolute Monocytes Absolute Eosinophils Absolute Basophils Retic Count (auto) 2.05 Absolute Retic 0.048 Carbonic Acid HCO3/H2CO3 Ratio ABG pH ABG pCO2 ABG pO2 ABG HCO3 ABG O2 Saturation ABG Base Excess FiO2 Sodium Potassium Chloride Carbon Dioxide Anion Gap BUN Creatinine Est GFR ( Amer) Est GFR (Non-Af Amer) Glucose Lactic Acid 1.5 Calcium Phosphorus Magnesium Iron 63.1 TIBC 190 L % Saturation 33 Ferritin 263.00 Total Bilirubin AST ALT Alkaline Phosphatase Ammonia Total Protein Albumin Triglycerides Vitamin B12 > 1000.0 H Folate 4.10 02/02/17 02/03/17 06:31 05:40 NT-Pro-B Natriuret Pep 1170 H 594 H Impressions: Abdomen Ultrasound 02/01/17 00:00 IMPRESSION: Limited examination due to body habitus and intervening bowel gas resulting in acoustic impedance. Prominent liver demonstrating coarsened, predominantly hyperechoic parenchyma is consistent with acute alcoholic hepatitis. Differential considerations including infectious hepatitis and neoplastic processes are felt to be much less likely. Chest/Abdomen CTA 02/01/17 15:13 IMPRESSION: 1. No evidence of pulmonary embolus. 2. Diffuse ground-glass opacities of the lungs. This is a nonspecific finding ; differential considerations include atypical pneumonitis, pulmonary edema, interstitial pneumonia, drug reaction, or other. Abdomen/Pelvis CT 02/01/17 16:01 IMPRESSION: Markedly abnormal appearance of the liver demonstrating heterogeneous, predominantly decreased attenuation. Differential considerations include hepatitis, toxic hepatic injury, neoplasm, or other. Background of mesenteric fat stranding. Chest X-Ray 02/03/17 06:00 IMPRESSION: NO ACUTE RADIOGRAPHIC FINDING IN THE CHEST. Assessment & Plan - Diagnosis (1) ARDS (adult respiratory distress syndrome) Is this a current diagnosis for this admission?: Yes (2) Abnormal CT of liver Is this a current diagnosis for this admission?: Yes (3) Acute respiratory failure with hypoxia Is this a current diagnosis for this admission?: Yes (4) Coagulopathy Is this a current diagnosis for this admission?: Yes (5) Thrombocytopenia Is this a current diagnosis for this admission?: Yes (6) Chronic pain following surgery or procedure Is this a current diagnosis for this admission?: Yes (7) Tobacco dependence Is this a current diagnosis for this admission?: Yes - Time Critical Time spent with patient: 35 or more minutes
--- NOTE | 2017-02-03 10:55 | Operative Report ---
Operative Report DATE OF SURGERY: 02/03/17 Operative Report: Patient intubated and sedated using a medium size bronchoscope her tracheobronchial tree was explored and there was no splaying of the mary lou because it was pale with white patchy film diffusely over all lung murphy no endobronchial lesions were noted no subcutaneous nodules or erythema was noted. Multiple lavages were taken of the right middle lobe. The patient tolerated procedure well postprocedure SaO2 was 100%. Lavage has been sent to the lab for appropriate cultures and studies PREOPERATIVE DIAGNOSIS: ARDS POSTOPERATIVE DIAGNOSIS: Same OPERATION: Fiberoptic bronchoscopy with bronchoalveolar lavage SURGEON: AMAN HOOK ANESTHESIA: GA TISSUE REMOVED OR ALTERED: Large fluid right middle lobe COMPLICATIONS: None ESTIMATED BLOOD LOSS: None
[2017-02-03] MEDS: VALACYCLOVIR HCL 500 MG TABLET NG SCH ×2 (11:04→22:21)
[2017-02-03] MEDS: AZITHROMYCIN 500 MG in DEXTROSE 5%-WATER 250 ML IV SCH (11:04)
[2017-02-03 11:55] LABS: LDH 1462 U/L (313-618)
[2017-02-03 12:37] LABS: ADD HIVPANEL? NO; HIV (1 AND 2) ANTIBODY NEGATIVE (NEGATIVE)
[2017-02-03 13:09] LABS: FLUID TYPE BRONCHIAL WASH
[2017-02-03 13:10] LABS: FLUID APPEARANCE CLOUDY
[2017-02-03 13:11] LABS: FLUID RBC AVERAGE 325.5; FLUID RBC DILUENT USED SALINE; FLUID RBC SIDE 1 330; FLUID RBC SIDE 2 321
[2017-02-03 13:12] LABS: FLUID RBC DILUTION FACTOR 10; TOTAL RBC SQUARES COUNTED FLD 225
--- NOTE | 2017-02-03 13:24 | RADIOLOGY REPORT (SQ) ---
EXAM DESCRIPTION: U/S ABDOMEN LTD W/DOPPLER COMPLETED DATE/TIME: 02/03/2017 1:01 pm REASON FOR STUDY: portal vein thrombosis COMPARISON: None. TECHNIQUE: Dynamic and static grayscale images acquired of the abdomen and recorded on PACS. Additio nal selected color Doppler and spectral images recorded. LIMITATIONS: None. FINDINGS: PANCREAS: No masses. Visualized pancreatic duct normal caliber. LIVER: 17 cm. Mottled appearance. LIVER VASCULATURE: Portal vein flow is hepatofugal. Poorly seen. By history there is portal vein th rombosis. GALLBLADDER: There is considerable sludge in the gallbladder. No stones are identified. There is no wall thickening. ULTRASOUND-DETECTED GURROLA'S SIGN: Negative. INTRAHEPATIC DUCTS AND COMMON DUCT: Not seen. INFERIOR VENA CAVA: Normal flow. AORTA: Not seen. RIGHT KIDNEY: Normal size, 11.7 cm. Normal echogenicity. No solid or suspicious masses. No hydroneph rosis. No calcifications. PERITONEAL AND RIGHT PLEURAL SPACE: No ascites or effusions. OTHER: No other significant findings. IMPRESSION: 1. The liver has a mottled appearance. There is thrombosis of the portal vein by histo ry. Portal flow that was seen was hepatofugal. 2. There is sludge in the gallbladder. TECHNICAL DOCUMENTATION: JOB ID: [id number] [facility]- All Rights Reserved
[2017-02-03] MEDS: LORAZEPAM INJ 2 MG/1 ML VIAL IV PRN ×2 (14:30→20:03)
[2017-02-03 15:36] LABS: ANION GAP 5 (5-19); BLOOD UREA NITROGEN 7 mg/dL (7-20); CARBON DIOXIDE 28 mmol/L (22-30); CHLORIDE 103 mmol/L (98-107); CREATININE RESULT 0.47 mg/dL (0.52-1.25); GLUCOSE 105 mg/dL (75-110); POTASSIUM 3.3 mmol/L (3.6-5.0); SODIUM 136.4 mmol/L (137-145)
[2017-02-03 15:48] LABS: CALCIUM 6.5 mg/dL (8.4-10.2)
[2017-02-03 16:27] LABS: PATH REVIEW PATHOLOGIST REVIEWED
[2017-02-03] MEDS ORDERED: ACETYLCYSTEINE INJ 6000 MG/30 ML IV ONE (16:40)
[2017-02-03] MEDS ORDERED: POTASSIUM CHLORIDE 20 MEQ/15 ML UDCUP NG ONE (17:30)
[2017-02-03] MEDS: DIAZEPAM 5 MG TABLET NG SCH ×2 (17:52→23:20)
[2017-02-03] MEDS: IMIPENEM/CILASTATIN SODIUM 1,000 MG in NORMAL SALINE 250 ML IV SCH ×2 (17:54→23:19)
[2017-02-03] MEDS: NORMAL SALINE 1000 ML 1,000 ML with THIAMINE HCL 100 MG, MVI, ADULT NO.1 WITH VIT K 10 ... IV SCH ×4 (17:54)
[2017-02-03] MEDS ORDERED: ACETYLCYSTEINE IV ONE ×2 (18:00)
[2017-02-03] MEDS ORDERED: WATER IV ONE ×2 (18:00)
[2017-02-03] MEDS ORDERED: DEXTROSE 5% IV ONE ×2 (18:00)
[2017-02-03] MEDS ORDERED: MAGNESIUM SULFATE/D5W 1 GM/100 ML RTUPB IV ONE (18:30)
[2017-02-03] MEDS: ALBUMIN HUMAN 50 ML IV SCH ×4 (18:40→22:19)
[2017-02-03] MEDS ORDERED: NORMAL SALINE 500 ML with ROCURONIUM BROMIDE 500 MG IV PRN ×2 (18:43)
[2017-02-03] MEDS ORDERED: NORMAL SALINE 1000 ML 1,000 ML IV PRN (18:45)
--- NOTE | 2017-02-03 20:02 | PROGRESS NOTE E ---
Progress Note NAME: HERI ALVARADO : 1980 AGE: 36Y DATE: 02/03/2017 ROOM: 612 SUBJECTIVE: Unable to obtain review of systems secondary to patient's intubated and sedated status. 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 The patient is breathing between 30-40 times a minute. Overnight the patient was noted to have saturations 85% to 88%, requiring increased FiO2. The patient's temperature max in the last 24 hours was 100.9 on 02/02/17. The patient's I's and O's for the last 24 hours were an intake of 6185 with an output of 1710 for a net gain of 4.4 L, the patient's weight going from 72.8 kilos to 80 kilos. OBJECTIVE: VITAL SIGNS: Temperature 100.4, pulse 118, blood pressure 116/74, respiratory rate 22, saturation 95% on 50% FiO2. GENERAL: The patient is intubated and poorly sedated. HEENT: The patient has an ecchymosis involving his right orbit with abrasion. The patient has bilateral conjunctival exudates. The patient's pupils are pinpoint and minimally reactive. He has no icterus. The patient's mucosa reveals an inferior labial herpetic like lesion but is otherwise moist. Tongue is midline. NECK: No JVD, no lymphadenopathy, no thyromegaly. His trachea midline. CHEST: Occasional crackles bilaterally. Otherwise without wheezes or rhonchi or overt rales. CARDIOVASCULAR: Mildly tachycardic but regular without appreciable murmur, rubs or gallops. ABDOMEN: Protuberant and mildly distended with mild splenomegaly. Diffusely tender to palpation, diminished bowel sounds. GENITOURINARY: Reveals normal external male genitalia and Arana catheter draining dark urine. EXTREMITIES: Reveal bilateral ecchymosis to bilateral lower extremities without cyanosis, clubbing, or edema. NEUROLOGIC: Unable to assess although withdraws from painful stimuli. SKIN: Reveals multiple ecchymosis. LABORATORY VALUES: Sodium of 135.8, potassium 2.9, chloride is 102, CO2 is 29, BUN 9, creatinine 0.45, glucose 79, hemoglobin A1c of 4.5, lactic acid 1.5, calcium of 6.7, phosphorus of 1.2, magnesium of 2, total bilirubin of 3, direct of 1.8, AST of 56, ALT 30, alkaline phosphatase 188, ammonia of 43.2, total protein of 5.3, albumin of 2.2, triglycerides of 133. AFP is currently pending. Vitamin B12 is greater than 1000, folate is 4.1, pro-BNP of 594, ferritin of 263, iron of 63.1 with a TIBC of 190 and a percent saturation of 33 and a transferrin of 263. White count of 10.7, hemoglobin 9.2, hematocrit 26, MCV of 113 and platelets of 43,000, down from 108 on admission. INR of 1.74 with a PT of 21.4. ABG reveals a pH of 7.49 with a pCO2 of 36.8, pO2 of 54.6, bicarbonate of 27.5 on 50% FiO2. Vancomycin trough of 17.5. The patient's phenytoin level on admission was 19.9, his serum alcohol level on admission was 246, EBV is pending, HIV is pending and hepatitis is pending. AFB was negative. Microbial cultures: Tracheal aspirate done on 02/02/2017 reveals gram-positive cocci in clusters. Aixa albicans and Aixa dubliniensis was present at well. The patient had one set of blood cultures that is also growing gram-positive cocci in clusters. Chest x-ray reveals mild to moderate mixed interstitial and airspace opacities in both lungs, moderate lung volumes, normal cardiac silhouette, adequate appearing endotracheal tube, right internal jugular central line and NG tube. IMPRESSION: This is a 36-year-old male with: 1. SEVERE SEPSIS. 2. ARDS. 3. COAGULOPATHY LIKELY DIC. 4. ACUTE ALCOHOL INTOXICATION. 5. ALCOHOL ABUSE WITH WITHDRAWAL. 6. BILATERAL PNEUMONIA. 7. ANEMIA. 8. HYPOKALEMIA. 9. HYPOCALCEMIA. 10. HYPERAMMONEMIA. 11. SEIZURE DISORDER. 12. BACTEREMIA. 13. COPD 14. TOBACCO ABUSE 15. HERPES SIMPLEX PLAN: 1. For patient's sepsis, this is likely secondary to pneumonia that was present on admission. Will expand patient's spectrum to include Imipenem, as patient is currently on azithromycin, vancomycin, and will also add clindamycin with this concern for underlying streptococcal infection. There is concern at this time, however, for VRE or MRSA in light of patient's culture results. Review of previous cultures from this patient reveals no history of either MRSA or VRE. Continue to maintain MAP greater than 65. Continue CVP q.4 h. 2. For patient's DIC, laboratory studies performed revealed a FDP greater than 40 and a fibrinogen of 173 with platelets of 43,000 and an LDH of 1462. Currently will continue to support the patient's underlying process and patient has been typed and screened in anticipation of need for blood or blood products. Continue to monitor serial FDP and fibrinogen as well as his coagulation studies. 3. For his hepatic derangement, I have discussed this case with Dr. Owen of [facility] Hepat[facility]. He does recommend eventually a hepatic biopsy for this patient; however, it does appear as though this is somewhat in part to the patient's underlying cirrhosis which is evident on his CAT scan by esophageal varices and noted hepatic congestion. Will obtain an ultrasound of the liver as there is some concern for possible Budd-Chiari. 4. For patient's electrolyte derangements including hypocalcemia, hypophosphatemia and hypokalemia. We will replete and recheck these. 5. For patient's ARDS/acute respiratory failure, we will defer this to pulmonary medicine who have been consulted on this case and they plan to undergo bronchoscopy today for this patient. It also does appear on chest CT that the patient does have some underlying COPD. I have discussed with them the idea of starting steroids. 6. For patient's alcohol withdrawal, continue the patient on Versed, add p.r.n. Ativan and scheduled Valium. We are having some difficulty sedating this patient likely due to this. Continue thiamine and folic acid and continue to monitor patient on telemetry. 7. For patient's possible herpes labialis, will place the patient on valacyclovir 1 gm NG q.12 h. 8. For patient's chronic pain, the patient reportedly at home takes oxycodone 10 p.o. q.6 h. per [facility], and we will place patient on Dilaudid here. 9. For his hyperammonemia, we will place the patient on lactulose 10 mg t.i.d. 10. The patient's GI prophylaxis, he is on Protonix 40 mg IV q.12 h.. 11. For DVT prophylaxis, he is on SCDs and KB hose. Otherwise, unable to use pharmacologic prophylaxis at this time due to DIC and thrombocytopenia. I am acutely aware of possibility for thrombosis in light of this. 12. For his code status, he is a DNR and his , Kathie Alvarado, is his significant surrogate decision-maker. Total time spent with patient including physical examination, coordination of care, and discussion with outside facilities was 45 minutes of critical care time. DICTATING PHYSICIAN: TAMICA MARRERO M.D. [id number] PHY#: [id number] ID: [id number] JOB#: [id number] ACCT: [id number] cc: > MTDD
[2017-02-03] MEDS: CLINDAMYCIN 600 MG/D5W RTU 50 ML IV SCH (22:20)
[2017-02-03 22:26] LABS: ABSOLUTE BASOPHILS # (AUTO) 0.1 10^3/uL (0.0-0.2); ABSOLUTE EOSINOPHILS # (AUTO) 0.3 10^3/uL (0.0-0.6); ABSOLUTE LYMPHOCYTES (AUTO) 1.1 10^3/uL (0.5-4.7); ABSOLUTE MONOCYTES (AUTO) 0.4 10^3/uL (0.1-1.4); ABSOLUTE NEUT (AUTO) 8.2 10^3/uL (1.7-8.2); BASOPHILS % (AUTO) 0.8 % (0-2); EOSINOPHILS % (AUTO) 3.2 % (0-6); HEMOGLOBIN 8.3 g/dL (13.5-17.0); HGB HCT DIFFERENCE 0.9; LYMPHOCYTES % (AUTO) 11.2 % (13-45); MEAN CORPUSCULAR HGB CONC 34.4 g/dL (32.0-36.0); MEAN CORPUSCULAR VOLUME 116 fl (80-97); MONOCYTES % (AUTO) 3.8 % (3-13); RED BLOOD COUNT 2.07 10^6/uL (4.35-5.55); RED CELL DISTRIBUTION WIDTH 15.6 % (11.5-14.0); WHITE BLOOD COUNT 10.1 10^3/uL (4.0-10.5)
[2017-02-03 22:37] LABS: ANISOCYTOSIS 1+
[2017-02-03 22:38] LABS: TOXIC GRANULATION 1+
[2017-02-03 22:40] LABS: ALANINE AMINOTRANSFERASE 23 U/L (21-72); ALBUMIN 2.5 g/dL (3.5-5.0); ALKALINE PHOSPHATASE 146 U/L (38-126); ANION GAP 7 (5-19); ASPARTATE AMINO TRANSFERASE 50 U/L (17-59); BILIRUBIN,TOTAL 3.1 mg/dL (0.2-1.3); BLOOD UREA NITROGEN 7 mg/dL (7-20); CARBON DIOXIDE 24 mmol/L (22-30); CHLORIDE 106 mmol/L (98-107); GLUCOSE 138 mg/dL (75-110); POTASSIUM 3.7 mmol/L (3.6-5.0); SODIUM 137.3 mmol/L (137-145); TOTAL PROTEIN 5.6 g/dL (6.3-8.2)
[2017-02-03 22:41] LABS: POIKILOCYTOSIS SLIGHT; POLYCHROMASIA SLIGHT; TARGET CELLS SLIGHT
[2017-02-03 22:43] LABS: BURR CELLS SLIGHT; TEAR DROP CELLS SLIGHT
[2017-02-03 22:53] LABS: CALCIUM 6.8 mg/dL (8.4-10.2)
[2017-02-04] MEDS: PROPOFOL 100 ML IV PRN ×3 (00:40→14:20)
[2017-02-04] MEDS: MIDAZOLAM HCL 100 ML IV PRN ×5 (00:40→14:18)
[2017-02-04] MEDS: IPRATROPIUM/ALBUTEROL 0.5-2.5 MG/3 ML AMPUL NEB SCH ×3 (01:48→13:55)
[2017-02-04] MEDS: SUCRALFATE SUSP 1 GM/10 ML UDCUP NG SCH ×3 (03:26→14:12)
[2017-02-04] MEDS: CIPROFLOXACIN HCL 0.3% OPH SOLN 2.5 ML OU SCH ×2 (05:09→14:04)
[2017-02-04] MEDS: IMIPENEM/CILASTATIN SODIUM 1,000 MG in NORMAL SALINE 250 ML IV SCH ×2 (05:10→14:11)
[2017-02-04] MEDS: CLINDAMYCIN 600 MG/D5W RTU 50 ML IV SCH ×2 (05:11→14:07)
[2017-02-04] MEDS: DIAZEPAM 5 MG TABLET NG SCH ×2 (05:13→14:10)
[2017-02-04] MEDS: PHENYTOIN SODIUM INJ/PF 100 MG/2 ML SDV IV SCH ×2 (05:13→14:06)
[2017-02-04] MEDS: VANCOMYCIN HCL 1,250 MG in DEXTROSE 5%-WATER 250 ML IV SCH (05:13)
[2017-02-04 05:49] LABS: ARTERIAL BLOOD BASE EXCESS -0.8 mmol/L
[2017-02-04 05:53] LABS: HEMATOCRIT 22.8 % (37.9-51.0); HGB HCT DIFFERENCE 0.6; MEAN CORPUSCULAR HEMOGLOBIN 39.9 pg (27.0-33.4); MEAN CORPUSCULAR HGB CONC 34.2 g/dL (32.0-36.0); MEAN CORPUSCULAR VOLUME 117 fl (80-97); RED BLOOD COUNT 1.95 10^6/uL (4.35-5.55); RED CELL DISTRIBUTION WIDTH 15.7 % (11.5-14.0); WHITE BLOOD COUNT 8.8 10^3/uL (4.0-10.5)
[2017-02-04 05:55] LABS: PROTHROMBIN TIME 20.3 SEC (11.4-15.4)
[2017-02-04 05:56] LABS: FIBRINOGEN 157 mg/dL (209-497)
[2017-02-04 06:06] LABS: ALANINE AMINOTRANSFERASE 26 U/L (21-72); ALBUMIN 2.4 g/dL (3.5-5.0); ALKALINE PHOSPHATASE 168 U/L (38-126); ANION GAP 8 (5-19); ASPARTATE AMINO TRANSFERASE 46 U/L (17-59); BILIRUBIN,DIRECT 2.1 mg/dL (0.0-0.4); BILIRUBIN,TOTAL 3.2 mg/dL (0.2-1.3); BLOOD UREA NITROGEN 5 mg/dL (7-20); CARBON DIOXIDE 25 mmol/L (22-30); CHLORIDE 107 mmol/L (98-107); CREATINE KINASE 26 U/L (55-170); CREATININE RESULT 0.43 mg/dL (0.52-1.25); GLUCOSE 96 mg/dL (75-110); MAGNESIUM 1.8 mg/dL (1.6-2.3); PHOSPHORUS 1.6 mg/dL (2.5-4.5); POTASSIUM 3.4 mmol/L (3.6-5.0); SODIUM 140.4 mmol/L (137-145); TOTAL PROTEIN 5.1 g/dL (6.3-8.2)
[2017-02-04 06:13] LABS: PREALBUMIN 3.6 mg/dL (17.6-36.0)
[2017-02-04 06:14] LABS: AMYLASE < 30 U/L (30-110)
[2017-02-04 06:19] LABS: CALCIUM 6.7 mg/dL (8.4-10.2)
[2017-02-04 06:26] LABS: HEMOGLOBIN 7.8 g/dL (13.5-17.0)
[2017-02-04 06:33] LABS: BASOPHILS % (MANUAL) 0 % (0-2); EOSINOPHILS % (MANUAL) 10 % (0-6); LYMPHOCYTES % (MANUAL) 11 % (13-45); TOTAL CELLS COUNTED 100
[2017-02-04 06:38] LABS: ANISOCYTOSIS SLIGHT; POIKILOCYTOSIS SLIGHT; POLYCHROMASIA SLIGHT; TOXIC GRANULATION 1+; TOXIC VACUOLATION PRESENT
[2017-02-04 06:39] LABS: OVALOCYTES SLIGHT; TARGET CELLS 1+; TEAR DROP CELLS SLIGHT
--- NOTE | 2017-02-04 07:13 | RADIOLOGY REPORT (SQ) ---
EXAM DESCRIPTION: CHEST SINGLE VIEW COMPLETED DATE/TIME: 02/04/2017 6:31 am REASON FOR STUDY: resp fail/ARDS COMPARISON: 02/03/2017. EXAM PARAMETERS: NUMBER OF VIEWS: One view. TECHNIQUE: Single frontal radiographic view of the chest acquired. RADIATION DOSE: NA LIMITATIONS: None. FINDINGS: LUNGS AND PLEURA: Moderate -large opacity -effusion with air bronchograms of bilateral mid lower lung murphy, right more than left. Moderate interstitial markings. Possible moderate right l ayered effusion. MEDIASTINUM AND HILAR STRUCTURES: No masses. Contour normal. HEART AND VASCULAR STRUCTURES: Heart normal in size. Normal vasculature. BONES: No acute findings. HARDWARE: Tip of an endotracheal tube just below the thoracic inlet ; consider 2.5 cm advancement. R ight subclavian PICC line and NG tube appear adequate. OTHER: No other significant finding. IMPRESSION: Worsened bilateral lung opacities -effusion. Lines and tubes. TECHNICAL DOCUMENTATION: JOB ID: [id number]
[2017-02-04] MEDS ORDERED: CALCIUM GLUCONATE 1000 MG/10 ML INJ IV ONE ×2 (07:27→08:34)
[2017-02-04] MEDS ORDERED: POTASSIUM CHLORIDE 20 MEQ/15 ML UDCUP NG ONE (08:00)
[2017-02-04] MEDS ORDERED: NORMAL SALINE 250 ML IV PRN ×2 (08:10)
[2017-02-04] MEDS ORDERED: FENTANYL CITRATE INJ/PF 100 MCG/2 ML AMPUL IV PRN (08:10)
[2017-02-04] MEDS ORDERED: FUROSEMIDE INJ/PF 20 MG/2 ML SDV IV PRN ×2 (08:10→14:05)
[2017-02-04] MEDS: MAGNESIUM SULFATE/D5W 1 GM/100 ML RTUPB IV SCH ×2 (08:55→10:51)
[2017-02-04] MEDS ORDERED: CALCIUM GLUCONATE 2,000 MG in DEXTROSE 5%-WATER 100 ML IV ONE (09:00)
[2017-02-04] MEDS ORDERED: POTASSIUM PHOS,M-BASIC-D-BASIC 60 MMOL in NORMAL SALINE 1000 ML 1,000 ML IV ONE (09:30)
[2017-02-04] MEDS: VALACYCLOVIR HCL 500 MG TABLET NG SCH (10:00)
[2017-02-04] MEDS: LACTULOSE SYRUP 20 GM/30 ML UDCUP NG SCH ×2 (10:00→14:08)
[2017-02-04] MEDS ORDERED: FUROSEMIDE INJ/PF 20 MG/2 ML SDV IV SCH (10:00)
--- NOTE | 2017-02-04 10:49 | PDOC PROGRESS REPORT ---
Subjective Progress Note for:: 02/04/17 Subjective:: intubated and sedated Physical Exam Vital Signs: Temp Pulse Resp BP Pulse Ox 99.3 F 111 H 22 H 117/64 99 02/04/17 07:44 02/04/17 08:02 02/04/17 08:02 02/04/17 07:44 02/04/17 08:02 Intake & Output 02/03/17 02/04/17 02/05/17 06:59 06:59 06:59 Intake Total 6185 8215 Output Total 1710 1230 75 Balance 4475 6985 -75 Weight 80 kg 88 kg General appearance: PRESENT: no acute distress, disheveled, thin, well-developed Head exam: PRESENT: atraumatic, normocephalic Eye exam: PRESENT: conjunctiva pale Mouth exam: PRESENT: dry mucosa, neck supple, tongue midline, other - ET tube in place Neck exam: ABSENT: carotid bruit, JVD, lymphadenopathy, thyromegaly Respiratory exam: PRESENT: decreased breath sounds, prolonged expiratory phas, rales, rhonchi, symmetrical. ABSENT: accessory muscle use, retraction, stridor , tachypnea, unlabored, wheezes Cardiovascular exam: PRESENT: RRR, +S1, +S2. ABSENT: bradycardia Pulses: PRESENT: normal radial pulses GI/Abdominal exam: PRESENT: diminished bowel sounds, soft. ABSENT: distended, firm, guarding, hernia, hyperactive bowel sounds, hypoactive bowel sounds, mass , Andino's sign, normal bowel sounds, organolmegaly, rebound, rigid, tenderness Rectal exam: PRESENT: deferred Gentrourinary exam: PRESENT: indwelling catheter Musculoskeletal exam: PRESENT: normal inspection Skin exam: PRESENT: dry, warm Results Laboratory Results: 02/04/17 05:20 02/04/17 05:20 02/03/17 02/03/17 02/03/17 07:28 07:28 10:15 WBC RBC Hgb Hct MCV MCH MCHC RDW Plt Count Seg Neutrophils % Lymphocytes % Monocytes % Eosinophils % Basophils % Absolute Neutrophils Absolute Lymphocytes Absolute Monocytes Absolute Eosinophils Absolute Basophils Carbonic Acid HCO3/H2CO3 Ratio ABG pH ABG pCO2 ABG pO2 ABG HCO3 ABG O2 Saturation ABG Base Excess FiO2 Sodium Potassium Chloride Carbon Dioxide Anion Gap BUN Creatinine Est GFR ( Amer) Est GFR (Non-Af Amer) Glucose Calcium Phosphorus Magnesium Iron 63.1 TIBC 190 L % Saturation 33 Transferrin 122 L Ferritin 263.00 Total Bilirubin AST ALT Alkaline Phosphatase Ammonia Total Protein Albumin Prealbumin Amylase Vitamin B12 > 1000.0 H Folate 4.10 Fluid Type BRONCHIAL WASH Fluid Source LUNG Fluid Color Fluid Appearance CLOUDY Fluid Viscosity MODERATELY VISCOUS Fluid WBC 1056 Fluid RBC 3616 Blood Type Antibody Screen 02/03/17 02/03/17 02/03/17 11:19 14:35 14:35 WBC RBC Hgb Hct MCV MCH MCHC RDW Plt Count Seg Neutrophils % Lymphocytes % Monocytes % Eosinophils % Basophils % Absolute Neutrophils Absolute Lymphocytes Absolute Monocytes Absolute Eosinophils Absolute Basophils Carbonic Acid HCO3/H2CO3 Ratio ABG pH ABG pCO2 ABG pO2 ABG HCO3 ABG O2 Saturation ABG Base Excess FiO2 Sodium 136.4 L Potassium 3.3 L Chloride 103 Carbon Dioxide 28 Anion Gap 5 BUN 7 Creatinine 0.47 L Est GFR ( Amer) > 60 Est GFR (Non-Af Amer) > 60 Glucose 105 Calcium 6.5 L* Phosphorus Magnesium 1.8 Iron TIBC % Saturation Transferrin Ferritin Total Bilirubin AST ALT Alkaline Phosphatase Ammonia Total Protein Albumin Prealbumin Amylase Vitamin B12 Folate Fluid Type Fluid Source Fluid Color Fluid Appearance Fluid Viscosity Fluid WBC Fluid RBC Blood Type O POSITIVE Antibody Screen NEGATIVE 02/03/17 02/03/17 02/04/17 22:10 22:10 05:20 WBC 10.1 RBC 2.07 L Hgb 8.3 L Hct 24.0 L MCV 116 H MCH 40.0 H MCHC 34.4 RDW 15.6 H Plt Count 40 L Seg Neutrophils % 81.0 H Lymphocytes % 11.2 L Monocytes % 3.8 Eosinophils % 3.2 Basophils % 0.8 Absolute Neutrophils 8.2 Absolute Lymphocytes 1.1 Absolute Monocytes 0.4 Absolute Eosinophils 0.3 Absolute Basophils 0.1 Carbonic Acid HCO3/H2CO3 Ratio ABG pH ABG pCO2 ABG pO2 ABG HCO3 ABG O2 Saturation ABG Base Excess FiO2 Sodium 137.3 Potassium 3.7 Chloride 106 Carbon Dioxide 24 Anion Gap 7 BUN 7 Creatinine 0.40 L Est GFR ( Amer) > 60 Est GFR (Non-Af Amer) > 60 Glucose 138 H Calcium 6.8 L* Phosphorus Magnesium 2.0 Iron TIBC % Saturation Transferrin Ferritin Total Bilirubin 3.1 H AST 50 ALT 23 Alkaline Phosphatase 146 H Ammonia 36.2 H Total Protein 5.6 L Albumin 2.5 L Prealbumin Amylase Vitamin B12 Folate Fluid Type Fluid Source Fluid Color Fluid Appearance Fluid Viscosity Fluid WBC Fluid RBC Blood Type Antibody Screen 02/04/17 02/04/17 02/04/17 05:20 05:20 05:20 WBC 8.8 RBC 1.95 L Hgb 7.8 L Hct 22.8 L MCV 117 H MCH 39.9 H MCHC 34.2 RDW 15.7 H Plt Count 44 L Seg Neutrophils % Not Reportable Lymphocytes % Not Reportable Monocytes % Not Reportable Eosinophils % Not Reportable Basophils % Not Reportable Absolute Neutrophils Not Reportable Absolute Lymphocytes Not Reportable Absolute Monocytes Not Reportable Absolute Eosinophils Not Reportable Absolute Basophils Not Reportable Carbonic Acid 1.02 L HCO3/H2CO3 Ratio 22:1 ABG pH 7.44 ABG pCO2 33.9 L ABG pO2 87.5 ABG HCO3 22.6 ABG O2 Saturation 97.0 ABG Base Excess -0.8 FiO2 60% Sodium 140.4 Potassium 3.4 L Chloride 107 Carbon Dioxide 25 Anion Gap 8 BUN 5 L Creatinine 0.43 L Est GFR ( Amer) > 60 Est GFR (Non-Af Amer) > 60 Glucose 96 Calcium 6.7 L* Phosphorus 1.6 L Magnesium 1.8 Iron TIBC % Saturation Transferrin Ferritin Total Bilirubin 3.2 H AST 46 ALT 26 Alkaline Phosphatase 168 H Ammonia Total Protein 5.1 L Albumin 2.4 L Prealbumin 3.6 L Amylase < 30 L Vitamin B12 Folate Fluid Type Fluid Source Fluid Color Fluid Appearance Fluid Viscosity Fluid WBC Fluid RBC Blood Type Antibody Screen 02/02/17 03:30 Tracheal Aspirate Gram Stain - Final 02/02/17 03:30 Tracheal Aspirate Sputum Culture - Final Staphylococcus Aureus C.albicans/C.dubliniensis Normal Ginger Absent 02/02/17 03:30 Eye - Drainage Eye Culture - Final Staphylococcus Aureus Skin Ginger 02/02/17 02/03/17 02/04/17 06:31 05:40 05:20 Creatine Kinase 26 L CK-MB (CK-2) NT-Pro-B Natriuret Pep 1170 H 594 H 02/04/17 05:20 Creatine Kinase CK-MB (CK-2) 0.56 NT-Pro-B Natriuret Pep Impressions: Chest/Abdomen CTA 02/01/17 15:13 IMPRESSION: 1. No evidence of pulmonary embolus. 2. Diffuse ground-glass opacities of the lungs. This is a nonspecific finding ; differential considerations include atypical pneumonitis, pulmonary edema, interstitial pneumonia, drug reaction, or other. Abdomen/Pelvis CT 02/01/17 16:01 IMPRESSION: Markedly abnormal appearance of the liver demonstrating heterogeneous, predominantly decreased attenuation. Differential considerations include hepatitis, toxic hepatic injury, neoplasm, or other. Background of mesenteric fat stranding. Abdomen Ultrasound 02/03/17 00:00 IMPRESSION: 1. The liver has a mottled appearance. There is thrombosis of the portal vein by history. Portal flow that was seen was hepatofugal. 2. There is sludge in the gallbladder. Chest X-Ray 02/04/17 06:00 IMPRESSION: Worsened bilateral lung opacities -effusion. Lines and tubes. Assessment & Plan - Diagnosis (1) ARDS (adult respiratory distress syndrome) Is this a current diagnosis for this admission?: YesPlan: Labs- All tests 24 hr 02/04/17 05:20 ABG pH 7.44 ABG pCO2 33.9 L ABG pO2 87.5 ABG O2 Saturation 97.0 FiO2 60% (2) Abnormal CT of liver Is this a current diagnosis for this admission?: Yes (3) Acute respiratory failure with hypoxia Is this a current diagnosis for this admission?: Yes (4) Coagulopathy Is this a current diagnosis for this admission?: Yes (5) Thrombocytopenia Is this a current diagnosis for this admission?: YesPlan: Disseminated intravascular coagulation's platelets 44,000 (6) Chronic pain following surgery or procedure Is this a current diagnosis for this admission?: Yes (7) Tobacco dependence Is this a current diagnosis for this admission?: Yes - Time Critical Time spent with patient: 35 or more minutes - Discussed with RT, RN and PCP 45 min
[2017-02-04] MEDS: LORAZEPAM INJ 2 MG/1 ML VIAL IV PRN (11:01)
[2017-02-04] MEDS: PANTOPRAZOLE SODIUM 40 MG VIAL IV SCH (11:02)
[2017-02-04] MEDS: AZITHROMYCIN 500 MG in DEXTROSE 5%-WATER 250 ML IV SCH (11:15)
--- NOTE | 2017-02-04 11:27 | TRANSFER SUMMARY E ---
Transfer Summary NAME: HERI LAWRENCE : 1980 AGE: 36Y ADMITTED: 02/01/2017 TRANSFERRED: 02/04/2017 ACCEPTING FACILITY: [facility]. ACCEPTING PHYSICIAN: Dr. Angela Ortiz DIAGNOSES AT THE TIME OF DISCHARGE: Include: 1. Severe sepsis secondary to MSSA pneumonia. 2. ARDS. 3. DIC. 4. Hepatic failure. 5. Acute alcohol intoxication. 6. Alcohol withdrawal. 7. Seizure disorder. 8. Hypoalbuminemia. 9. Cirrhosis. 10. Hypokalemia. 11. Hypophosphatemia. 12. Hypocalcemia. 13. Hyperammonemia. 14. Protein calorie malnourishment as evidenced by a prealbumin of 3.6. 15. Nonspecific mesenteric stranding. 16. Tobacco abuse. 17. Chronic pain. 18. Chronic opiate dependence. 19. Likely occult blood positive. 20. Anemia of chronic disease. HOSPITAL COURSE: The patient is a 36-year-old male with a known history of seizure disorder, alcohol abuse, tobacco abuse, who normally drinks a fifth of vodka every 2 days and smokes approximately 3 quarters of a pack per day, who has chronic pain secondary to prior herniorrhaphy with complications status post nerve stimulator implant and replacement, who presented to the emergency department for difficulty breathing. Patient was found to be intoxicated and confused, and according to who apparently was present at the bedside at that time, noted for the last 2 weeks he had been lying in bed and that he had been having a fever, cold sweats, and gagging as well as right lateral chest discomfort with inspiration. Upon EMS arrival to patient's home, he was found to be saturating 70% on room air and was brought to the emergency department and was initially placed on BiPAP. Patient was initially started on pulmonary toileting and antibiotics for possible aspiration pneumonia; however, overnight on 02/02, patient had persistent tachypnea in the 40s to 50s and was intubated. Patient subsequently developed ARDS and was seen by the hogshead packer who did take patient back for bronchoscopy on 02/03/2017 during which findings were noted to have a pale patchy white film diffusely over his lung murphy with no lesions. Apparently, multiple lavages were taken. However, due to patient's ongoing thrombocytopenia as well as worsening thrombocytopenia, no biopsies were obtained. On 02/02/2017, patient did have a central line placed of a right subclavian. This was done by the surgeon. Initial CTA of the chest, abdomen, and pelvis on presentation on 02/01/2017 revealed diffuse ground-glass opacification of the lungs and biapical paraseptal emphysematous changes without any pulmonary emboli. Patient was also noted, on CT of the abdomen and pelvis, to have a significantly abnormal liver with a heterogenous, predominantly decreased attenuation with a background of mesenteric fat strand without any focal mitis for infection noted at that time. Blood cultures obtained on 02/01 revealed gram-positive cocci in clusters and tracheal aspirate obtained from 02/02 has revealed Staphylococcus aureus as well as bianca albicans. Discussion with Microbiology reveals that his blood culture is also positive for the same Staph aureus in the blood. Bronchial washings obtained from 02/03 also revealed the same gram-positive in clusters. These are intermediate sensitivity to Levaquin, but otherwise sensitive to all other medications, including vancomycin with an ROSA of 1. Patient did have a therapeutic vanc trough on 02/03/2017 of 17.5. Patient's Dilantin level on presentation was 19.9 and current Dilantin level free and total is pending. On 02/03/2017, it was noted that patient's INR had significantly increased to 1.74 with an elevation of his PT and a decrease of his platelets from 108 on admission to 43. FDP was performed and found to be greater than 40 and fibrinogen was 173. Fibrinogen does continue to trend down to 157 and FDP is also greater than 40 today. Patient was noted also to have an LDH of 1400, supporting a diagnosis of DIC. Patient's hemoglobin has steadily declined in part due to aggressive volume resuscitation, but also in part due to hemolysis due to DIC. Currently, patient is undergoing transfusion of 2 units of packed red blood cells that he is having weeping from his bilateral eyes, mouth, and now dark stools. Patient underwent hepatitis testing, which was negative and a rapid HIV was also negative. ASB was also negative. Patient's urine drug screen on presentation was negative and acetaminophen was less than 10 as well. On 02/03/2017, I did give this patient a dose of acetylcysteine and also changed his antibiotics for broader spectrum coverage to include Pseudomonas, giving him imipenem and also clindamycin due to the appearance of some skin lesions. Patient's white count is currently improving now at 8.8 from 16.3 on admission and patient's segmented neutrophils are 78%, much improved again from admission. Patient's blood gas, however, does appear to be improving and his chest x-ray reveals significant worsening, and patient, on 02/03, met some criteria for ARDS, however, today is quite volume overloaded and requiring diuresis with a marginal blood pressure. I did give this patient 50 grams of albumin yesterday in order to help support his blood pressure and improve his urine output. From admission, however, patient's weight is reported to be up a minimum of 8, but between 8 and 16 kg from admission. Patient is grossly positive approximately 11 L in the last 48 hours. Patient has had marginal urine output in the last 24 hours with his output being 1230 with an input of 8215 for a growth of 6985 in 24 hours. Due to the ongoing constraints of our facility due to a lack of subspecialty support, including GI, hematology, and intensive services, and also limited access to blood products, decision was made to transfer patient to a tertiary care facility. His was in agreement with this. Dr. Ortiz of [facility] was contacted and kindly accepted this patient in transfer. PHYSICAL EXAMINATION: VITAL SIGNS: Temperature is 99.3 core, pulse of 110, blood pressure 117/64, respiratory rate of 22, saturation of 99 on 60% FiO2 with a CVP of 17. GENERAL: Patient is intubated, sedated, paralyzed, and older than stated age appearing, in no acute respiratory distress. HEENT: The patient has an ecchymosis involving his right orbit and bilateral palpebral fissures are weeping blood. Patient has a midline inferior labial circumferential lesion with crusted blood and blood weeping. Patient has bilateral scleral icterus and bilateral scleral edema. NECK: Patient has significant JVD. His trachea is midline. He has no lymphadenopathy. He has a right subclavian triple lumen catheter. CHEST: Reveals rales bilaterally and occasional rhonchi as well as some bilateral end-expiratory wheezing. CARDIOVASCULAR: Tachycardic, but regular without appreciable murmur, rub, or gallop. ABDOMEN: Protuberant, but soft, mildly distended with active bowel sounds. GENITOURINARY: Normal male external genitalia with Arana catheter in place draining haydee urine. EXTREMITIES: Diffuse edema. No cyanosis. No clubbing. SKIN: Multiple excoriations, which weep and erythema has improved over yesterday, patient has bilateral lower extremity ecchymosis and what appears to be some petechia on his left lower extremity. NEUROLOGIC: Unable to assess. Patient does have 2/4 *------* and is intubated, sedated, and paralyzed. LABORATORY VALUES: As currently follows: White count of 8.8, hemoglobin of 7.8, hematocrit of 22.8, and platelets of 44,000. A PT of 20.3, an INR of 1.63, a PTT of 37, fibrinogen of 157, and FDP greater than 40. ABG reveals a pH of 7.44, PCO2 of 33.9, a PO2 of 87.5, and bicarbonate of 22.6 on 60% FiO2. Sodium of 140.4, potassium of 3.4, chloride of 107, CO2 of 25, BUN of 5, creatinine 0.43, glucose of 96, calcium of 6.7, phosphorus of 1.6, magnesium of 1.8, total bili of 3.2, direct of 2.1. AST of 46, ALT of 26, Alk phos of 168, ammonia of 36.2. A CK of 26 and a MB of 0.56. Total protein of 5.1, albumin of 2.4, prealbumin of 3.6, and an amylase of less than 30. AFP was 2.1. Vitamin B12 was greater than 1000. TSH was 0.43. Iron of 63.1, TIBC of 190, percent saturation of 33, and a transferrin of 122, and a ferritin of 263. A vancomycin trough done on 02/03/2017 at 5:40 a.m. was 17.5. Phenytoin level done on 02/01/2017 at 1521 was 19.9. Serum alcohol on 02/01/2017 was 246. Antiplatelet antibodies are pending and EBV is pending. HIV panel is pending; however, rapid HIV is negative. AFB smear was negative. Patient's bronchial washings from 02/03/2017 reveal gram-positive cocci in clusters. Bianca albicans normal davi is absent. Fungal cultures are pending. AFB is pending. Tracheal aspirate from 02/02/2017 reveals MSSA and eye culture done from 02/02/2017 reveals again MSSA. Urine reveals no growth and blood cultures reveal gram-positive cocci in clusters. CONDITION AT THE TIME OF DISCHARGE: Critical. MEDICATIONS: Currently include: 1. Tylenol 650 AL q. 8 p.r.n. 2. Albuterol 2.5 neb inhaled q. 4 p.r.n. 3. Duonebs 3 mL q. 6 scheduled. 4. Azithromycin 500 mg IV daily. 5. Calcium gluconate 2000 mg x1. 6. Cipro eye drops, 1 drop each eye q. 6. 7. Clindamycin 600 IV q. 8. 8. Sliding scale insulin with Accu-Cheks q. 6. 9. Valium 10 mg NG q. 6. 10. Fentanyl 100 mcg IV q. 4 p.r.n. pain. 11. Lasix 10 mg IV after first unit of blood and 20 mg IV q. 12. 12. Dilaudid 1 mg IV q. 4 p.r.n. severe pain. 13. Imipenem 1 g IV q. 6. 14. Lactulose 10 g NG t.i.d. 15. Ativan 2 mg IV q. 4 p.r.n. anxiety or withdrawal symptoms. 16. Magnesium sulfate 1 g IV. 17. Versed drip. 18. Protonix 40 mg IV q. 12. 19. Dilantin 100 mg IV q. 8. 20. Potassium phosphate 60 mmol. 21. Propofol. 22. Normal saline at 100 mL per hour. 23. Rocuronium drip and banana bag daily. 24. Carafate 1 g NG q. 6. 25. Valacyclovir 1000 mg NG q. 12. 26. Vancomycin 1500 mg IV q. 8. DIET: Patient is currently n.p.o. with the exception of medications and patient's ventilator settings are currently as follows: Patient is currently on SIMV, PRVC with 60% FiO2, a rate of 22, a tidal volume of 600, a PEEP of 8, and pressure support of 10/8. Total time spent with patient including physical examination, coordination of care, discussion with consultants, arranging for patient transport, discussion with patient's family, and active critical care management was 65 minutes of time. DICTATING PHYSICIAN: TAMICA MARRERO M.D. [id number] PHY#: [id number] ID: [id number] JOB#: [id number] ACCT: [id number] cc:TAMICA MARRERO M.D. >
--- NOTE | 2017-02-04 12:30 | XCELERA REPORT ---
[address] [address] Transthoracic Echocardiogram Report Name: HERI LAWRENCE Age: 36 yrs Gender: Male : 1980 Patient Status: Inpatient Patient Location: ICU\S\612\S\A Study Date: 02/04/2017 08:06 AM Height: 69 in Weight: 160 lb BSA: 1.9 m2 Procedure: A complete two-dimensional transthoracic echocardiogram was performed (2D, M-mode, spectral and color flow Doppler). The study was technically difficult with many images being suboptimal in quality. Reason For Study: pulm edema, elevated BNP Ordering Physician: ONEL QUINN Performed By: Flory Alaniz Interpretation Summary The study was technically difficult with many images being suboptimal in quality. Left ventricular systolic function is mildly reduced. Doppler measurements suggest pseudonormalized left ventricular relaxation, which is associated with grade II/IV or mild to moderate diastolic dysfunction There is borderline concentric left ventricular hypertrophy. The left ventricle is grossly normal size. Not all wall segments were well visualized. Regional wall motion abnormalities cannot be excluded due to limited visualization. The right ventricle is mildly dilated. The right ventricular systolic function is normal. The left atrium is mildly dilated. The right atrium is mildly dilated. There is no mitral valve stenosis. There is a trace amount of mitral regurgitation No aortic regurgitation is present. There is no aortic valve stenosis No tricuspid regurgitation. There is no tricuspid stenosis. The aortic root is not well visualized. The inferior vena cava was not well visualized There is no pericardial effusion. MMode/2D Measurements \T\ Calculations RVDd: 3.1 cm LVIDd: 6.0 cm FS: 40.4 % Ao root diam: 3.2 cm IVSd: 0.60 cm LVIDs: 3.6 cm EDV(Teich): 178.0 ml LVPWd: 0.73 cmESV(Teich): 52.9 ml Ao root area: 8.2 cm2 EF(Teich): 70.3 % LA dimension: 4.2 cm LVOT diam: 2.0 cm LVOT area: 3.3 cm2 Doppler Measurements \T\ Calculations MV E max ricardo: MV P1/2t max ricardo: Ao V2 max: LV V1 max P.5 cm/sec 118.5 cm/sec 164.0 cm/sec 7.5 mmHg MV P1/2t: 48.4 msec Ao max PG: LV V1 max: MVA(P1/2t): 4.5 cm2 10.8 mmHg 136.5 cm/sec MV dec slope: KESHIA(V,D): 2.7 cm2 717.5 cm/sec2 PA V2 max: 114.0 cm/sec PA max P.2 mmHg Left Ventricle The left ventricle is grossly normal size. There is borderline concentric left ventricular hypertrophy. Left ventricular systolic function is mildly reduced. Doppler measurements suggest pseudonormalized left ventricular relaxation, which is associated with grade II/IV or mild to moderate diastolic dysfunction. Not all wall segments were well visualized. Regional wall motion abnormalities cannot be excluded due to limited visualization. Right Ventricle The right ventricle is mildly dilated. The right ventricle appears to be hypertrophied. The right ventricular systolic function is normal. Atria The right atrium is mildly dilated. The left atrium is mildly dilated. Interarterial septum not well visualized and not well dopplered. Cannot comment on ASD/PFO presence. Mitral Valve The mitral valve is grossly normal. There is no mitral valve stenosis. There is a trace amount of mitral regurgitation. Aortic Valve The aortic valve is not well visualized secondary to technical limitations. There is no aortic valve stenosis. No aortic regurgitation is present. Tricuspid Valve The tricuspid valve is not well visualized, but is grossly normal. There is no tricuspid stenosis. No tricuspid regurgitation. Pulmonic Valve The pulmonic valve is not well visualized. Great Vessels The aortic root is not well visualized. The inferior vena cava was not well visualized. Effusions There is no pericardial effusion. : ONEL QUINN > Andrey Myers
[2017-02-04] MEDS ORDERED: VANCOMYCIN HCL 1,500 MG in DEXTROSE 5%-WATER 250 ML IV SCH (14:00)
[2017-02-04 15:35] VITALS: BP 131/88
[2017-02-05 07:08] LABS: EBV EARLY AG AB DIFFUSE 1:40 (Neg:<1:20)
[2017-02-05 08:27] LABS: EPSTEIN BARR EARLY AG IGG AB <9.0 U/mL (0.0-8.9)
== END 2017-02-04 15:50 | disposition short-term general hospital (02) | DRG 853 ==
LOC: ER 14:59 → EH 18:26 → UNDOADMIN 18:26 → EH 20:46 → ICU 22:10
PROVIDERS: ADMIT Internal Medicine; ATTEND Internal Medicine
PROC: 5A09357 Assistance with Respiratory Ventilation, Less than 24 Consecutive Hours, Continuous Positive Airway Pressure (ICD-10-PCS; 2017-02-01)
PROC: 5A1945Z Respiratory Ventilation, 24-96 Consecutive Hours (ICD-10-PCS; 2017-02-01)
PROC: 0BH17EZ Insertion of Endotracheal Airway into Trachea, Via Natural or Artificial Opening (ICD-10-PCS; 2017-02-01)
PROC: 02HV33Z Insertion of Infusion Device into Superior Vena Cava, Percutaneous Approach (ICD-10-PCS; 2017-02-02)
PROC: 0B9D8ZX Drainage of Right Middle Lung Lobe, Via Natural or Artificial Opening Endoscopic, Diagnostic (ICD-10-PCS; principal; 2017-02-03)
PROC: 30233N1 Transfusion of Nonautologous Red Blood Cells into Peripheral Vein, Percutaneous Approach (ICD-10-PCS; 2017-02-04)
DX: A41.01 Sepsis due to Methicillin susceptible Staphylococcus aureus (principal); K72.00 Acute and subacute hepatic failure without coma; J15.211 Pneumonia due to Methicillin susceptible Staphylococcus aureus; D65 Disseminated intravascular coagulation [defibrination syndrome]; J96.01 Acute respiratory failure with hypoxia; J69.0 Pneumonitis due to inhalation of food and vomit; F10.239 Alcohol dependence with withdrawal, unspecified; E72.20 Disorder of urea cycle metabolism, unspecified; E46 Unspecified protein-calorie malnutrition; J44.0 Chronic obstructive pulmonary disease with (acute) lower respiratory infection; R65.20 Severe sepsis without septic shock; Z78.1 Physical restraint status; F10.229 Alcohol dependence with intoxication, unspecified; Y90.8 Blood alcohol level of 240 mg/100 ml or more; G40.909 Epilepsy, unspecified, not intractable, without status epilepticus; E88.09 Other disorders of plasma-protein metabolism, not elsewhere classified; K70.31 Alcoholic cirrhosis of liver with ascites; E87.6 Hypokalemia; E83.39 Other disorders of phosphorus metabolism; E83.51 Hypocalcemia; Z68.28 Body mass index [BMI] 28.0-28.9, adult; F41.1 Generalized anxiety disorder; F17.210 Nicotine dependence, cigarettes, uncomplicated; G89.29 Other chronic pain; A49.01 Methicillin susceptible Staphylococcus aureus infection, unspecified site; D63.8 Anemia in other chronic diseases classified elsewhere; G47.30 Sleep apnea, unspecified; K70.10 Alcoholic hepatitis without ascites; G89.28 Other chronic postprocedural pain; B00.1 Herpesviral vesicular dermatitis; Z79.891 Long term (current) use of opiate analgesic; Z79.899 Other long term (current) drug therapy; Z79.4 Long term (current) use of insulin; Z88.6 Allergy status to analgesic agent; Z82.5 Family history of asthma and other chronic lower respiratory diseases
CPT/HCPCS: 31500; 36415; 36430; 51701; 71010; 71275; 74177; 76705; 80048; 80053; 80074; 80185; 80202; 80307; 81001; 82040; 82105; 82140; 82150; 82272; 82550; 82553; 82607; 82728; 82746; 82803; 82962; 83036; 83540; 83550; 83605; 83615; 83690; 83735; 83880; 84100; 84134; 84443; 84466; 84478; 84484; 85025; 85045; 85362; 85384; 85610; 85730; 86022; 86256; 86663; 86664; 86665; 86701; 86702; 86850; 86900; 86901; 86920; 87015; 87040; 87070; 87077; 87086; 87101; 87116; 87186; 87205; 87206; 88104; 89050; 93005; 93010; 93306; 93976; 94002; 94003; 94660; 96365; 96375; 99291; C1751; J0132; J0295; J0456; J0610; J0692; J0696; J0743; J1165; J1170; J1940; J2060; J2250; J2543; J2704; J2930; J3010; J3370; J3411; J3475; J3480; J3490; J7030; J7040; J7050; J7060; J7620; P9016; P9047; S0164

== ENCOUNTER 2017-02-18 22:45 | Inpatient (IN) | payer SELFPAY ==
[2017-02-18] MEDS ORDERED: IPRATROPIUM/ALBUTEROL 0.5-2.5 MG/3 ML AMPUL NEB PRN (23:16)
[2017-02-18] MEDS ORDERED: PHENYTOIN SODIUM EXTENDED 100 MG CAPSULE PO ONE (23:45)
[2017-02-18] MEDS ORDERED: LACTULOSE SYRUP 20 GM/30 ML UDCUP PO ONE (23:45)
[2017-02-19] MEDS ORDERED: RIFAXIMIN 550 MG TABLET PO SCH (01:15)
--- NOTE | 2017-02-19 03:49 | PDOC H&P ---
History of Present Illness Admission Date/PCP: 02/18/17 22:45 Patient complains of: Hepatic encephalopathy History of Present Illness: HERI LAWRENCE is a 36 year old male with a past medical history of seizure disorder, alcohol dependence, hepatic cirrhosis, hepatic encephalopathy, COPD, Tobacco Dependence, anemia and recent M SSA pneumonia with DIC resulting in transfer to tertiary care 15 days ago. He has had subsequent improvement allowing for transfer back to [facility] however has residual baseline hepatic encephalopathy with delirium. On arrival he is mildly hypotensive with blood pressure 97/60 without tachycardia. The patient himself is a very poor historian with residual delirium oriented to person only. Please see transfer summary for details. Past Medical History Cardiac Medical History: Denies: Atrial Fibrillation, Congestive Heart Failure, Coronary Artery Disease, DVT, Myocardial Infarction, Hyperlipidema, Hypertension, Pulmonary Embolism Pulmonary Medical History: Reports: Chronic Obstructive Pulmonary Disease (COPD) Denies: Asthma, Sleep Apnea, Tuberculosis Neurological Medical History: Reports: Seizures Endocrine Medical History: Denies: Diabetes Mellitus Type 1, Diabetes Mellitus Type 2, Hyperthyroidism, Hypothyroidism GI Medical History: Reports: Cirrhosis Denies: Hepatitis Musculoskeltal Medical History: Denies: Arthritis Psychiatric Medical History: Reports: Tobacco Dependency, Other Denies: Depression Past Surgical History Past Surgical History: Reports: Herniorrhaphy - With chronic postop pain, Other - Nerve stimulator implant; relocation posteriorly 6 months ago. Denies: Pacemaker Social History Smoking Status: Current Every Day Smoker Cigarettes Packs Per Day: 1 Frequency of Alcohol Use: Heavy Hx Recreational Drug Use: No Drugs: None Hx Prescription Drug Abuse: No - Advance Directive Resuscitation Status: Full Code Family History Family History: CVA Parental Family History Reviewed: Yes - Unobtainable Children Family History Reviewed: Yes - Unobtainable Sibling(s) Family History Reviewed.: Yes - Unobtainable Medication/Allergy Home Medications: Oxycodone HCl [Oxycodone HCl 10 MG Tablet] 10 mg PO Q6HP PRN 02/02/17 Phenytoin Sodium Extended [Dilantin 100 mg Capsule.er] 300 mg PO QHS 02/02/17 Zolpidem Tartrate [Ambien] 10 mg PO QHS 02/02/17 Allergies/Adverse Reactions: hydrocodone bitartrate [From Vicodin] Adverse Reaction (Intermediate, Verified 12/04/15 06:47) lavender (Lavandula angustifolia) Adverse Reaction (Verified 02/03/17 03:22) Review of Systems ROS unobtainable: Due to mental status Physical Exam Vital Signs: Temp Pulse Resp BP Pulse Ox 98.3 F 99 16 94/69 L 99 02/18/17 23:02 02/18/17 23:02 02/18/17 23:02 02/18/17 23:02 02/18/17 23:02 Intake & Output 02/17/17 02/18/17 02/19/17 11:59 11:59 11:59 Weight 75.7 kg General appearance: PRESENT: no acute distress, cooperative, disheveled, thin Head exam: PRESENT: atraumatic, normocephalic Eye exam: PRESENT: conjunctiva pink, EOMI, PERRLA. ABSENT: scleral icterus Ear exam: PRESENT: normal external ear exam Mouth exam: PRESENT: moist, tongue midline Neck exam: ABSENT: carotid bruit, JVD, lymphadenopathy, thyromegaly Respiratory exam: PRESENT: clear to auscultation river. ABSENT: rales, rhonchi, wheezes Cardiovascular exam: PRESENT: RRR. ABSENT: diastolic murmur, rubs, systolic murmur Pulses: PRESENT: normal dorsalis pedis pul Vascular exam: PRESENT: normal capillary refill GI/Abdominal exam: PRESENT: ascites, distended, soft. ABSENT: firm, guarding, hyperactive bowel sounds, hypoactive bowel sounds, tenderness Rectal exam: PRESENT: deferred Extremities exam: PRESENT: full ROM. ABSENT: calf tenderness, clubbing, pedal edema Neurological exam: PRESENT: alert, altered, awake, oriented to person, CN II- XII grossly intact. ABSENT: oriented to place, oriented to time, oriented to situation Psychiatric exam: PRESENT: normal mood, unusual affect. ABSENT: homicidal ideation, suicidal ideation Skin exam: PRESENT: dry, intact, warm. ABSENT: cyanosis, rash Assessment & Plan - Diagnosis (1) Hepatic encephalopathy Is this a current diagnosis for this admission?: Yes Plan: Rifaximin, lactulose twice daily goal of 2 loose stools per day. Patient unable to care for himself and independent setting discharge planning consulted (2) Wernicke's disease with cerebellar manifestation Is this a current diagnosis for this admission?: Yes Plan: Thiamine folate and vitamin B12 and physical therapy ordered (3) Macrocytic anemia Is this a current diagnosis for this admission?: Yes Plan: Anemia workup ordered likely B12 deficiency, vitamin B12 ordered empirically. - Time Time Spent: 30 to 50 Minutes - Inpatient Certification Medical Necessity: Need Close Monitoring Due to Risk of Patient Decompensation
[2017-02-19 05:26] LABS: ALANINE AMINOTRANSFERASE 27 U/L (21-72); ALKALINE PHOSPHATASE 160 U/L (38-126); ANION GAP 6 (5-19); ASPARTATE AMINO TRANSFERASE 43 U/L (17-59); BILIRUBIN,DIRECT 0.8 mg/dL (0.0-0.4); BLOOD UREA NITROGEN 7 mg/dL (7-20); CALCIUM 8.6 mg/dL (8.4-10.2); CARBON DIOXIDE 22 mmol/L (22-30); CHLORIDE 107 mmol/L (98-107); CREATININE RESULT 0.48 mg/dL (0.52-1.25); GLUCOSE 91 mg/dL (75-110); POTASSIUM 3.9 mmol/L (3.6-5.0); SODIUM 135.3 mmol/L (137-145); TOTAL PROTEIN 6.7 g/dL (6.3-8.2)
[2017-02-19] MEDS: HEPARIN SOD (PORCINE) 5,000 UNIT/ML 1 ML SYRINGE SUBCUT SCH ×3 (06:39→21:32)
[2017-02-19 07:00] LABS: ABSOLUTE EOSINOPHILS # (AUTO) 0.3 10^3/uL (0.0-0.6); ABSOLUTE LYMPHOCYTES (AUTO) 1.4 10^3/uL (0.5-4.7); ABSOLUTE MONOCYTES (AUTO) 0.8 10^3/uL (0.1-1.4); ABSOLUTE NEUT (AUTO) 3.4 10^3/uL (1.7-8.2); BASOPHILS % (AUTO) 0.7 % (0-2); EOSINOPHILS % (AUTO) 4.9 % (0-6); HEMATOCRIT 25.2 % (37.9-51.0); HEMOGLOBIN 8.8 g/dL (13.5-17.0); HGB HCT DIFFERENCE 1.2; LYMPHOCYTES % (AUTO) 24.1 % (13-45); MEAN CORPUSCULAR HEMOGLOBIN 38.1 pg (27.0-33.4); MEAN CORPUSCULAR HGB CONC 34.9 g/dL (32.0-36.0); MONOCYTES % (AUTO) 13.1 % (3-13); RED BLOOD COUNT 2.31 10^6/uL (4.35-5.55); RED CELL DISTRIBUTION WIDTH 17.9 % (11.5-14.0); SEGMENTED NEUTROPHILS % (AUTO) 57.2 % (42-78); WHITE BLOOD COUNT 5.9 10^3/uL (4.0-10.5)
[2017-02-19 07:07] LABS: MEAN CORPUSCULAR VOLUME 109 fl (80-97)
[2017-02-19] MEDS: DOCUSATE SODIUM 100 MG CAPSULE PO SCH ×2 (09:04→18:41)
[2017-02-19] MEDS: CYANOCOBALAMIN (VITAMIN B-12) 1,000 MCG TABLET PO SCH (09:04)
[2017-02-19] MEDS: LACTULOSE SYRUP 20 GM/30 ML UDCUP PO SCH ×2 (09:05→21:32)
[2017-02-19] MEDS ORDERED: FOLIC ACID 1 MG in NORMAL SALINE 50 ML IV SCH (10:00)
[2017-02-19] MEDS: RIFAXIMIN 550 MG TABLET PO SCH ×2 (10:11→21:32)
--- NOTE | 2017-02-19 11:00 | PDOC PROGRESS REPORT ---
Subjective Progress Note for:: 02/19/17 Subjective:: Patient was seen on morning rounds. He is resting comfortably in bed at the present time. His is at bedside. He remains confused to time and place, he is oriented to his . His states he ambulatory for the first time in 2 weeks with physical therapy this morning. He denies any shortness of breath or dyspnea. He denies any cough, dizziness or chest pain. Denies any nausea, abdominal pain or vomiting. Complains of back pain and generalized pain. Remaining review of systems is negative. Physical Exam Vital Signs: Temp Pulse Resp BP Pulse Ox 98.3 F 70 16 99/60 L 97 02/19/17 07:39 02/19/17 08:00 02/19/17 08:00 02/19/17 07:39 02/19/17 08:00 Intake & Output 02/18/17 02/19/17 02/20/17 06:59 06:59 06:59 Weight 75.7 kg General appearance: PRESENT: disheveled, thin, well-developed Head exam: PRESENT: atraumatic, normocephalic Eye exam: PRESENT: conjunctiva pink, EOMI, PERRLA. ABSENT: scleral icterus Ear exam: PRESENT: normal external ear exam Mouth exam: PRESENT: moist, tongue midline Neck exam: ABSENT: carotid bruit, JVD, lymphadenopathy, thyromegaly Respiratory exam: PRESENT: clear to auscultation river. ABSENT: rales, rhonchi, wheezes Cardiovascular exam: PRESENT: RRR. ABSENT: diastolic murmur, rubs, systolic murmur Pulses: PRESENT: normal dorsalis pedis pul Vascular exam: PRESENT: normal capillary refill GI/Abdominal exam: PRESENT: normal bowel sounds, soft. ABSENT: distended, guarding, mass, organolmegaly, rebound, tenderness Rectal exam: PRESENT: deferred Extremities exam: PRESENT: full ROM. ABSENT: calf tenderness, clubbing, pedal edema Musculoskeletal exam: PRESENT: ambulatory, full ROM, tenderness - back Neurological exam: PRESENT: alert, altered, oriented to person, ataxia, CN II- XII grossly intact Psychiatric exam: PRESENT: flat affect Focused psych exam: PRESENT: flight of ideas Skin exam: PRESENT: dry, intact, warm. ABSENT: cyanosis, rash Results Laboratory Results: 02/19/17 06:00 02/19/17 04:40 02/19/17 02/19/17 02/19/17 04:40 04:40 06:00 WBC Cancelled 5.9 RBC Cancelled 2.31 L Hgb Cancelled 8.8 L Hct Cancelled 25.2 L MCV Cancelled 109 H D MCH Cancelled 38.1 H MCHC Cancelled 34.9 RDW Cancelled 17.9 H Plt Count Cancelled 192 Seg Neutrophils % Cancelled 57.2 Lymphocytes % Cancelled 24.1 Monocytes % Cancelled 13.1 H Eosinophils % Cancelled 4.9 Basophils % Cancelled 0.7 Absolute Neutrophils Cancelled 3.4 Absolute Lymphocytes Cancelled 1.4 Absolute Monocytes Cancelled 0.8 Absolute Eosinophils Cancelled 0.3 Absolute Basophils Cancelled 0.0 Sodium 135.3 L Potassium 3.9 Chloride 107 Carbon Dioxide 22 Anion Gap 6 BUN 7 Creatinine 0.48 L Est GFR ( Amer) > 60 Est GFR (Non-Af Amer) > 60 Glucose 91 Calcium 8.6 Total Bilirubin 1.0 AST 43 ALT 27 Alkaline Phosphatase 160 H Total Protein 6.7 Albumin 3.0 L Assessment & Plan - Diagnosis (1) Hepatic encephalopathy Is this a current diagnosis for this admission?: Yes Plan: Continue Rifaximin, and lactulose. Check ammonia tomorrow (2) Macrocytic anemia Is this a current diagnosis for this admission?: Yes (3) Wernicke's disease with cerebellar manifestation Is this a current diagnosis for this admission?: Yes (4) Abnormal CT of liver Is this a current diagnosis for this admission?: Yes Plan: Avoid hepatotoxic medications (5) Chronic pain following surgery or procedure Is this a current diagnosis for this admission?: Yes - Time Time Spent with patient: 25-34 minutes Critical Time spent with patient: 15-24 minutes Medications reviewed and adjusted accordingly: Yes Anticipated discharge: Acute Rehab Within: when bed available
[2017-02-19] MEDS: QUETIAPINE FUMARATE 100 MG TABLET PO SCH (21:32)
[2017-02-19] MEDS: PHENYTOIN SODIUM EXTENDED 100 MG CAPSULE PO SCH (21:32)
[2017-02-20] MEDS: HEPARIN SOD (PORCINE) 5,000 UNIT/ML 1 ML SYRINGE SUBCUT SCH ×3 (05:26→22:02)
[2017-02-20] MEDS ORDERED: OXYCODONE HCL IR 5 MG TABLET PO PRN (09:55)
[2017-02-20] MEDS: LACTULOSE SYRUP 20 GM/30 ML UDCUP PO SCH ×2 (10:14→17:10)
[2017-02-20] MEDS: RIFAXIMIN 550 MG TABLET PO SCH ×2 (10:14→22:01)
[2017-02-20] MEDS: CYANOCOBALAMIN (VITAMIN B-12) 1,000 MCG TABLET PO SCH (10:14)
[2017-02-20] MEDS: DOCUSATE SODIUM 100 MG CAPSULE PO SCH ×2 (10:16→17:10)
[2017-02-20] MEDS: THIAMINE HCL 100 MG TABLET PO SCH (10:20)
--- NOTE | 2017-02-20 11:32 | PDOC PROGRESS REPORT ---
Subjective Progress Note for:: 02/20/17 Subjective:: Patient was seen on morning rounds. He is resting comfortably in bed at the present time. His is at bedside. He remains confused to time and place, he is oriented to his . His thought process appears clearer this morning. He denies any shortness of breath or dyspnea. He denies any cough, dizziness or chest pain. Denies any nausea, abdominal pain or vomiting. Complains of back pain and generalized pain. He has history of chronic back pain with nerve stimulator in place. Remaining review of systems is negative. Physical Exam Vital Signs: Temp Pulse Resp BP Pulse Ox 98.8 F 88 16 101/65 94 02/20/17 07:36 02/20/17 10:32 02/20/17 10:32 02/20/17 07:36 02/20/17 07:36 Intake & Output 02/19/17 02/20/17 02/21/17 06:59 06:59 06:59 Intake Total 2482 Balance 2482 Weight 75.7 kg 75.7 kg General appearance: PRESENT: no acute distress, thin, well-developed, well- nourished Head exam: PRESENT: atraumatic, normocephalic Eye exam: PRESENT: conjunctiva pink, EOMI, PERRLA. ABSENT: scleral icterus Ear exam: PRESENT: normal external ear exam Mouth exam: PRESENT: dry mucosa Neck exam: ABSENT: carotid bruit, JVD, lymphadenopathy, thyromegaly Respiratory exam: PRESENT: clear to auscultation river. ABSENT: rales, rhonchi, wheezes Cardiovascular exam: PRESENT: RRR. ABSENT: diastolic murmur, rubs, systolic murmur Pulses: PRESENT: normal dorsalis pedis pul GI/Abdominal exam: PRESENT: normal bowel sounds, soft. ABSENT: distended, guarding, mass, organolmegaly, rebound, tenderness Rectal exam: PRESENT: deferred Extremities exam: PRESENT: full ROM. ABSENT: calf tenderness - 0, clubbing, pedal edema Musculoskeletal exam: PRESENT: ambulatory, full ROM Neurological exam: PRESENT: alert, altered, awake, oriented to person, ataxia, CN II-XII grossly intact Psychiatric exam: PRESENT: anxious Focused psych exam: PRESENT: flight of ideas, restlessness Skin exam: PRESENT: dry, intact, warm. ABSENT: cyanosis, rash Results Laboratory Results: 02/19/17 06:00 02/19/17 04:40 02/20/17 02/20/17 02/20/17 05:30 05:30 05:30 Retic Count (auto) 1.55 Absolute Retic 0.037 Iron 59.3 TIBC 327 % Saturation 18 Ferritin 232.00 Ammonia 19.6 Vitamin B12 961.0 H Folate 15.20 Assessment & Plan - Diagnosis (1) Hepatic encephalopathy Is this a current diagnosis for this admission?: Yes Plan: Continue Rifaximin, and lactulose. Check ammonia tomorrow (2) Macrocytic anemia Is this a current diagnosis for this admission?: Yes (3) Wernicke's disease with cerebellar manifestation Is this a current diagnosis for this admission?: Yes Plan: Continue lactulose and Rifaximin. Ammonia today 19 (4) Abnormal CT of liver Is this a current diagnosis for this admission?: Yes Plan: Avoid hepatotoxic medications (5) Chronic pain following surgery or procedure Is this a current diagnosis for this admission?: Yes Plan: Patient has had chronic back pain with nerve stimulator in place - Time Time Spent with patient: 25-34 minutes Critical Time spent with patient: 15-24 minutes Medications reviewed and adjusted accordingly: Yes Anticipated discharge: Acute Rehab Within: within 24 hours
[2017-02-20] MEDS ORDERED: NICOTINE 14 MG/24 HR PATCH.TD24 TD ONE (17:00)
[2017-02-20] MEDS ORDERED: LIDOCAINE 5% (700 MG) TRANSDERMAL ADH..PATCH TP ONE (18:00)
[2017-02-20] MEDS: PHENYTOIN SODIUM EXTENDED 100 MG CAPSULE PO SCH (22:00)
[2017-02-20] MEDS ORDERED: ZOLPIDEM TARTRATE 5 MG TABLET PO SCH (22:00)
[2017-02-20] MEDS ORDERED: (PENDING PHARMACY ID) (Zolpidem Tartrate [Ambien] 10 MG) PO SCH (22:00)
[2017-02-20] MEDS: QUETIAPINE FUMARATE 100 MG TABLET PO SCH (22:01)
[2017-02-21 05:07] LABS: ABSOLUTE EOSINOPHILS # (AUTO) 0.3 10^3/uL (0.0-0.6); ABSOLUTE LYMPHOCYTES (AUTO) 1.7 10^3/uL (0.5-4.7); ABSOLUTE MONOCYTES (AUTO) 0.6 10^3/uL (0.1-1.4); ABSOLUTE NEUT (AUTO) 2.4 10^3/uL (1.7-8.2); BASOPHILS % (AUTO) 0.8 % (0-2); EOSINOPHILS % (AUTO) 6.2 % (0-6); HEMATOCRIT 28.4 % (37.9-51.0); HGB HCT DIFFERENCE 1.6; LYMPHOCYTES % (AUTO) 34.4 % (13-45); MEAN CORPUSCULAR HEMOGLOBIN 38.6 pg (27.0-33.4); MEAN CORPUSCULAR HGB CONC 35.1 g/dL (32.0-36.0); MEAN CORPUSCULAR VOLUME 110 fl (80-97); MONOCYTES % (AUTO) 11.4 % (3-13); RED BLOOD COUNT 2.59 10^6/uL (4.35-5.55); SEGMENTED NEUTROPHILS % (AUTO) 47.2 % (42-78)
[2017-02-21 05:20] LABS: ANION GAP 10 (5-19); BLOOD UREA NITROGEN 3 mg/dL (7-20); CALCIUM 9.3 mg/dL (8.4-10.2); CARBON DIOXIDE 21 mmol/L (22-30); CHLORIDE 105 mmol/L (98-107); CREATININE RESULT 0.41 mg/dL (0.52-1.25); GLUCOSE 94 mg/dL (75-110); MAGNESIUM 1.5 mg/dL (1.6-2.3); PHOSPHORUS 4.2 mg/dL (2.5-4.5); POTASSIUM 3.5 mmol/L (3.6-5.0); SODIUM 136.1 mmol/L (137-145)
[2017-02-21 05:33] LABS: PROTHROMBIN TIME 16.8 SEC (11.4-15.4)
[2017-02-21] MEDS: HEPARIN SOD (PORCINE) 5,000 UNIT/ML 1 ML SYRINGE SUBCUT SCH (06:26)
[2017-02-21] MEDS ORDERED: POTASSIUM CHLORIDE 10 MEQ TABLET.SA PO ONE (08:00)
[2017-02-21] MEDS: MAGNESIUM SULFATE/D5W 1 GM/100 ML RTUPB IV SCH ×2 (09:13→10:53)
[2017-02-21] MEDS: CYANOCOBALAMIN (VITAMIN B-12) 1,000 MCG TABLET PO SCH (09:29)
[2017-02-21] MEDS: THIAMINE HCL 100 MG TABLET PO SCH (09:30)
[2017-02-21] MEDS: LACTULOSE SYRUP 20 GM/30 ML UDCUP PO SCH (09:32)
[2017-02-21] MEDS: RIFAXIMIN 550 MG TABLET PO SCH (09:37)
[2017-02-21] MEDS: DOCUSATE SODIUM 100 MG CAPSULE PO SCH (09:38)
[2017-02-21] MEDS ORDERED: LIDOCAINE 5% (700 MG) TRANSDERMAL ADH..PATCH TP SCH (10:00)
[2017-02-21] MEDS ORDERED: NICOTINE 14 MG/24 HR PATCH.TD24 TD SCH (10:00)
[2017-02-21] MEDS ORDERED: FOLIC ACID 1 MG TABLET PO SCH (10:00)
[2017-02-21 12:02] VITALS: BP 110/72
--- NOTE | 2017-02-21 18:04 | PDOC DISCHARGE SUMMARY ---
General - Admit/Disc Date/PCP Admission Date/Primary Care Provider: 02/18/17 22:45 Discharge Date: 02/21/17 - Discharge Diagnosis (1) Wernicke's disease with cerebellar manifestation Is this a current diagnosis for this admission?: Yes (2) Hepatic encephalopathy Is this a current diagnosis for this admission?: Yes (3) Cirrhosis, alcoholic Is this a current diagnosis for this admission?: Yes (4) Pneumonia Is this a current diagnosis for this admission?: Yes (5) ARDS (adult respiratory distress syndrome) Is this a current diagnosis for this admission?: Yes (6) Alcohol dependence Is this a current diagnosis for this admission?: Yes (7) DIC (disseminated intravascular coagulation) Is this a current diagnosis for this admission?: Yes (8) Hypoalbuminemia due to protein-calorie malnutrition Is this a current diagnosis for this admission?: Yes (9) Hypocalcemia Is this a current diagnosis for this admission?: Yes (10) Hypokalemia Is this a current diagnosis for this admission?: Yes (11) Macrocytic anemia Is this a current diagnosis for this admission?: Yes (12) Thrombocytopenia Is this a current diagnosis for this admission?: Yes (13) Chronic pain following surgery or procedure Is this a current diagnosis for this admission?: Yes (14) Seizure disorder Is this a current diagnosis for this admission?: Yes (15) Tobacco dependence Is this a current diagnosis for this admission?: Yes - Additional Information Resuscitation Status: Full Code Discharge Diet: Cardiac Discharge Activity: Activity As Tolerated, Balance Activity w/Rest, Slowly Increase Activity, Supervised Activity Home Medications: Albuterol Sulfate [Ventolin Hfa] 1 - 2 puff IH Q4 PRN #1 hfa.aer.[email or web address] 02/21/17 Cyanocobalamin (Vitamin B-12) [Vitamin B-12 1000 mcg Tablet] 2,000 mcg PO DAILY #60 tablet 02/21/17 Folic Acid [Folvite 1 mg Tablet] 1 mg PO DAILY #90 tablet 02/21/17 Lactulose 20 gm PO BID 30 Days #180 solution 02/21/17 Phenytoin Sodium Extended [Dilantin 100 mg Capsule.er] 300 mg PO QHS #90 capsule 02/21/17 Quetiapine Fumarate [Seroquel 100 mg Tablet] 50 mg PO QHS #30 tablet 02/21/17 Rifaximin [Xifaxan 200 mg Tablet] 550 mg PO BID 30 Days tablet 02/21/17 Thiamine HCl [Thiamine 100 mg Tablet] 100 mg PO DAILY #90 tablet 02/21/17 History of Present Illness History of Present Illness: This is also hospital course HERI LAWRENCE is a 36 year old male with a past medical history of alcohol abuse, seizure disorder, and chronic pain secondary to herniorraphy with spinal stimulator in place who initially presented to this facility on 02/01/2017 with difficulty breathing. Patient had reported a prior 2 week history of lethargy, chest discomfort, fever and chills. Patient was initially placed on BiPAP and subsequently intubated. Patient was also found to be intoxicated with alcohol on presentation. For this quite complex examination, please see transfer note from 02/04/2017 to [facility]. At the time, patient had severe sepsis secondary to MSSA pneumonia, ARDS, DIC, and hepatic failure. He was transferred to their ICU for continued management of his ARDS. Patient was subsequently extubated and please see [facility] notes for the remainder of this course. Upon extubation, patient was initially found to be quite encephalopathic which improved with the administration of lactulose. Patient had multiple CAT scans and evaluation by neurology who felt that patient was suffering from hepatic encephalopathy. Patient continued to have some ongoing ataxia which was felt to be due to Warneke's. Patient was transferred back to this facility for ongoing management. Patient has continued to improve has been seen by physical therapy , Occupational Therapy, and speech. Patient has done quite well with therapy and has no additional ongoing needs with the exception of lactulose administration and medication compliance. Although patient does continue to complain of chronic pain he declined Lidoderm patches. Patient did however request pain medication in the form of oxycodone. Patient was strongly discouraged from using any addictive substances including pain medications or benzodiazepines. Patient was encouraged to be abstinent from alcohol as well as tobacco. His mother and were present at bedside for discussion regarding this. The remainder patient's hospital course here was unremarkable and his cultures have been negative. Patient has had no recurrence of fever and he is discharged in stable condition to home. Physical Exam Vital Signs: Temp Pulse Resp BP Pulse Ox 98.9 F 88 16 110/72 93 02/21/17 11:54 02/21/17 11:54 02/21/17 11:54 02/21/17 11:54 02/21/17 11:54 Intake & Output 02/20/17 02/21/17 02/22/17 06:59 06:59 06:59 Intake Total 2482 60 Balance 2482 60 Weight 75.7 kg 72.6 kg Exam: General: Awake alert and oriented x3, no acute respiratory distress HEENT: AT/NC, PERRL, EOMI, oropharynx is moist, pink, no scleral icterus, no conjunctival injection Neck: No JVD, trachea midline Chest: Clear to auscultation bilaterally, no wheezes rhonchi or rales CV: Regular rate and rhythm, normal S1 and S2, no murmur, rub, or gallop Abdomen: Soft, nontender to palpation, nondistended, active bowel sounds; no rebound, rigidity, or guarding Extremities: No cyanosis or edema; +clubbing Neuro: Cranial nerves II through XII are grossly intact without focal deficits; awake alert and oriented x3 Psych: Normal mood and affect Results Laboratory Results: 02/21/17 04:50 02/21/17 04:50 02/21/17 02/21/17 02/21/17 04:50 04:50 04:50 WBC 5.0 RBC 2.59 L Hgb 10.0 L Hct 28.4 L MCV 110 H MCH 38.6 H MCHC 35.1 RDW 18.0 H Plt Count 216 Seg Neutrophils % 47.2 Lymphocytes % 34.4 Monocytes % 11.4 Eosinophils % 6.2 H Basophils % 0.8 Absolute Neutrophils 2.4 Absolute Lymphocytes 1.7 Absolute Monocytes 0.6 Absolute Eosinophils 0.3 Absolute Basophils 0.0 Sodium 136.1 L Potassium 3.5 L Chloride 105 Carbon Dioxide 21 L Anion Gap 10 BUN 3 L Creatinine 0.41 L Est GFR ( Amer) > 60 Est GFR (Non-Af Amer) > 60 Glucose 94 Calcium 9.3 Phosphorus 4.2 Magnesium 1.5 L Ammonia 28.2 Status: Imported from [facility] BEING DISCHARGED WITH ANY OF THE FOLLOWING DIAGNOSIS?: No Plan Time Spent: Greater than 30 Minutes
== END 2017-02-21 12:55 | disposition home health service (06) | DRG 641 ==
LOC: 4N 22:45
PROVIDERS: ADMIT Family Medicine; ATTEND Family Medicine
PROC: 3E0F73Z Introduction of Anti-inflammatory into Respiratory Tract, Via Natural or Artificial Opening (ICD-10-PCS; principal; 2017-02-19)
DX: E51.2 Wernicke's encephalopathy (principal); E46 Unspecified protein-calorie malnutrition; K70.30 Alcoholic cirrhosis of liver without ascites; Z68.23 Body mass index [BMI] 23.0-23.9, adult; E83.51 Hypocalcemia; E87.6 Hypokalemia; D53.9 Nutritional anemia, unspecified; D69.6 Thrombocytopenia, unspecified; G89.28 Other chronic postprocedural pain; G40.909 Epilepsy, unspecified, not intractable, without status epilepticus; F17.210 Nicotine dependence, cigarettes, uncomplicated; F10.229 Alcohol dependence with intoxication, unspecified; J44.9 Chronic obstructive pulmonary disease, unspecified; Z79.899 Other long term (current) drug therapy; Z88.6 Allergy status to analgesic agent; Z82.3 Family history of stroke
CPT/HCPCS: 36415; 80048; 80053; 82140; 82607; 82728; 82746; 83540; 83550; 83735; 84100; 85025; 85045; 85610; A9270-GY; J1644; J3475; J3490

== ENCOUNTER 2018-08-03 10:07 | Emergency (ER) | payer SELFPAY ==
[2018-08-03] MEDS ORDERED: PANTOPRAZOLE SODIUM 40 MG VIAL IV ONE (10:46)
[2018-08-03] MEDS ORDERED: ONDANSETRON HCL INJ/PF 4 MG/2 ML SDV IV ONE (10:46)
[2018-08-03] MEDS ORDERED: THIAMINE HCL 100 MG, FOLIC ACID 1 MG in NORMAL SALINE 250 ML IV ONE (10:46)
[2018-08-03] MEDS ORDERED: NORMAL SALINE 1000 ML 1,000 ML IV ONE (10:46)
[2018-08-03] MEDS ORDERED: OCTREOTIDE ACETATE INJ/PF 100 MCG/1 ML SDV IV ONE (10:53)
--- NOTE | 2018-08-03 11:00 | ER Document Report ---
ED General - General Chief Complaint: ETOH Abuse Stated Complaint: DIFFICULTY BREATHING Time Seen by Provider: 08/03/18 10:12 TRAVEL OUTSIDE OF THE [place] IN LAST 30 DAYS: No - HPI Notes: Patient is a 37-year-old male that presents to the emergency department for chief complaint of altered mental status and hematemesis. Patient reports he has been on an alcohol rodgers for the past 1 month during which time he drinks one half 1/5 of vodka daily. His last drink was this morning at which time he had 3 airplane bottles filled with vodka. Patient reports shortness of breath and the inability to stand for the past 2 weeks. This morning he awoke with altered mental status, shortness of breath, vomiting bright red blood. His states that upon trying to use the restroom he fell and hit his head, patient denies loss of consciousness. Patient has experienced blurry vision, dizziness for the past 1 month. He also states that he has not had a solid meal in a month, does not drink anything other than vodka, and is unable to sleep without the use of Ambien which he takes as needed. Patient has a history of addiction to pain pills, he currently is prescribed oxycodone by a pain management clinic which he has not taken since yesterday. Patient denies chest pain, fever, chills or change in bowel movement Past Medical History: Epilepsy, COPD Past Surgical History: Spinal stimulator placed for hernia repair at age 14, no longer functioning Social History: 375 mL of vodka daily, [id number] history of cigarettes, no illicit drug use Family History: Reviewed and noncontributory for presenting illness Allergies: Reviewed, see documented allergy list. REVIEW OF SYSTEMS: CONSTITUTIONAL : No fever No chills No diaphoresis Recent illness EENT: Blurry vision No congestion No sore throat CARDIOVASCULAR: No chest pain No palpitations RESPIRATORY: shortness of breath difficulty breathing No cough GASTROINTESTINAL: abdominal pain nausea Vomiting Hematemesis No diarrhea GENITOURINARY: No dysuria No hematuria No difficulty urinating MUSCULOSKELETAL: back pain No arm pain Pain no leg pain SKIN: bruises No rashes LYMPHATIC: No swollen, enlarged glands. NEUROLOGICAL: lightheadedness No headache weakness No paresthesias PSYCHIATRIC: No anxiety No depression PHYSICAL EXAMINATION: Vital signs reviewed, nursing noted reviewed. GENERAL: no acute distress. Patient appears malnourished. HEAD: Atraumatic, normocephalic. EYES: Bilateral horizontal and vertical nystagmus, no ophthalmoplegia, sclera anicteric, conjunctiva are normal. ENT: nares patent, oropharynx clear without exudates. Dry mucous membranes. NECK: Normal range of motion, supple without lymphadenopathy LUNGS: Tenderness to right rib cage with no flail segment, wheezes in bilateral lung bases, no accessory muscles use, pursing of the lips, or respiratory distress. HEART: Regular rate and rhythm without murmurs ABDOMEN: Tender to palpation epigastric and right upper quadrants. No rebound, guarding, or rigidity. No masses appreciated. EXTREMITIES: Nontender, good range of motion, no pitting or edema. NEUROLOGICAL: Ataxic, Moves all extremities spontaneously Motor and sensory grossly intact on exam. PSYCH: Anxious, restless SKIN: Warm, Dry, normal turgor, large ecchymoses noted on legs pretibially bilateral, bilateral flank, right mid axillary ribs. - Related Data Allergies/Adverse Reactions: hydrocodone bitartrate [From Vicodin] Adverse Reaction (Intermediate, Verified 12/04/15 06:47) lavender (Lavandula angustifolia) Adverse Reaction (Verified 02/03/17 03:22) Past Medical History - Social History Smoking Status: Unknown if Ever Smoked Family History: CVA Patient has suicidal ideation: No Patient has homicidal ideation: No - Past Medical History Cardiac Medical History: Denies: Hx Atrial Fibrillation, Hx Congestive Heart Failure, Hx Coronary Artery Disease, Hx DVT, Hx Heart Attack, Hx Hypercholesterolemia, Hx Hypertension, Hx Pulmonary Embolism Pulmonary Medical History: Reports: Hx COPD Denies: Hx Asthma, Hx Sleep Apnea, Hx Tuberculosis Neurological Medical History: Reports: Hx Seizures Endocrine Medical History: Denies: Hx Diabetes Mellitus Type 1, Hx Diabetes Mellitus Type 2, Hx Hyperthyroidism, Hx Hypothyroidism Renal/ Medical History: Denies: Hx Peritoneal Dialysis GI Medical History: Reports: Hx Cirrhosis. Denies: Hx Hepatitis Musculoskeletal Medical History: Denies Hx Arthritis Psychiatric Medical History: Denies: Hx Depression Traumatic Medical History: Reports: Hx Fractures - current Right foot fracture Infectious Medical History: Denies: Hx Hepatitis Past Surgical History: Reports: Hx Abdominal Surgery, Hx Genitourinary Surgery, Hx Herniorrhaphy - With chronic postop pain, Other - Nerve stimulator implant; relocation posteriorly 6 months ago.. Denies: Hx Pacemaker - Immunizations Hx Diphtheria, Pertussis, Tetanus Vaccination: Yes - >3months Physical Exam - Vital signs Vitals: Temp BP 98.9 F 116/87 H 08/03/18 10:17 08/03/18 10:17 Course - Re-evaluation Re-evalutation: 08/03/18 11:18 Vitals reviewed. Nursing notes reviewed. Patient is ataxic and experiencing Warnicke's encephalopathy. He was given Ativan, thiamine, fluids and folic acid in the ED. His lab work shows thrombocytopenia with a platelet count of 54. Patient was also given IV octreotide and Protonix for his upper GI bleed. He has a stable hemoglobin and is not tachycardic or hypotensive. Patient has not had any hematemesis while in the emergency room. I did discuss his care with Dr. Michaels at [facility] who confirmed patient has a history of esophageal varices. Given his report of significant hematemesis he is requiring admission at a facility with GI. For this reason patient will be transferred to [facility] for further management. He is not requiring emergent transfusion since his hemoglobin and vital signs are stable and he has not actively bleeding in the ED. Dr. michaels did recommend thiamine 500 mg IV twice daily for his Warnicke's encephalopathy. Currently they do not have a bed available and he recommended I discussed patient's care with the emergency department to see if ED to ED transfer could be set up since he has a high potential for massive upper GI bleeding. I am currently awaiting a callback from the emergency physician Dr. Gomez. Patient's family is in agreement with plan of care. Current evaluation is same as initial presentation. Laboratory 08/03/18 08/03/18 08/03/18 10:23 10:23 10:23 WBC 6.5 RBC 3.31 L Hgb 13.3 L Hct 37.5 L MCV 113 H MCH 40.2 H MCHC 35.5 RDW 15.0 H Plt Count 54 L Seg Neutrophils % 63.8 Lymphocytes % 25.3 Monocytes % 10.6 Eosinophils % 0.1 Basophils % 0.2 Absolute Neutrophils 4.1 Absolute Lymphocytes 1.6 Absolute Monocytes 0.7 Absolute Eosinophils 0.0 Absolute Basophils 0.0 Platelet Comment DECREASED Anisocytosis SLIGHT Macrocytosis 3+ PT 17.1 H INR 1.33 APTT 37.4 H Fibrinogen 243 Fibrin Degrad Products VBG pH VBG pCO2 VBG HCO3 VBG Base Excess Sodium 135.7 L Potassium 3.3 L Chloride 96 L Carbon Dioxide 26 Anion Gap 14 BUN < 2 L Creatinine 0.47 L Est GFR ( Amer) > 60 Est GFR (Non-Af Amer) > 60 Glucose 110 Calcium 8.2 L Magnesium 1.6 Total Bilirubin 2.4 H Direct Bilirubin 1.1 H Neonat Total Bilirubin Not Reportable Neonat Direct Bilirubin Not Reportable Neonat Indirect Bili Not Reportable AST 171 H ALT 47 Alkaline Phosphatase 187 H Ammonia Total Protein 7.2 Albumin 3.7 Lipase 263.6 Urine Color Urine Appearance Urine pH Ur Specific [place] Urine Protein Urine Glucose (UA) Urine Ketones Urine Blood Urine Nitrite Urine Bilirubin Urine Urobilinogen Ur Leukocyte Esterase Squamous Epi Cells Auto Urine Ascorbic Acid Phenytoin Serum Alcohol 322 H* Blood Type Antibody Screen 08/03/18 08/03/18 08/03/18 11:28 11:28 11:28 WBC RBC Hgb Hct MCV MCH MCHC RDW Plt Count Seg Neutrophils % Lymphocytes % Monocytes % Eosinophils % Basophils % Absolute Neutrophils Absolute Lymphocytes Absolute Monocytes Absolute Eosinophils Absolute Basophils Platelet Comment Anisocytosis Macrocytosis PT INR APTT Fibrinogen Fibrin Degrad Products <10 VBG pH 7.54 H VBG pCO2 30.6 L VBG HCO3 25.4 VBG Base Excess 3.8 Sodium Potassium Chloride Carbon Dioxide Anion Gap BUN Creatinine Est GFR ( Amer) Est GFR (Non-Af Amer) Glucose Calcium Magnesium Total Bilirubin Direct Bilirubin Neonat Total Bilirubin Neonat Direct Bilirubin Neonat Indirect Bili AST ALT Alkaline Phosphatase Ammonia Total Protein Albumin Lipase Urine Color Urine Appearance Urine pH Ur Specific [place] Urine Protein Urine Glucose (UA) Urine Ketones Urine Blood Urine Nitrite Urine Bilirubin Urine Urobilinogen Ur Leukocyte Esterase Squamous Epi Cells Auto Urine Ascorbic Acid Phenytoin Serum Alcohol Blood Type Cancelled Antibody Screen Cancelled 08/03/18 08/03/18 08/03/18 11:28 11:46 12:46 WBC RBC Hgb Hct MCV MCH MCHC RDW Plt Count Seg Neutrophils % Lymphocytes % Monocytes % Eosinophils % Basophils % Absolute Neutrophils Absolute Lymphocytes Absolute Monocytes Absolute Eosinophils Absolute Basophils Platelet Comment Anisocytosis Macrocytosis PT INR APTT Fibrinogen Fibrin Degrad Products VBG pH VBG pCO2 VBG HCO3 VBG Base Excess Sodium Potassium Chloride Carbon Dioxide Anion Gap BUN Creatinine Est GFR ( Amer) Est GFR (Non-Af Amer) Glucose Calcium Magnesium Total Bilirubin Direct Bilirubin Neonat Total Bilirubin Neonat Direct Bilirubin Neonat Indirect Bili AST ALT Alkaline Phosphatase Ammonia 14.9 Total Protein Albumin Lipase Urine Color YELLOW Urine Appearance CLEAR Urine pH 8.0 Ur Specific [place] 1.009 Urine Protein NEGATIVE Urine Glucose (UA) NEGATIVE Urine Ketones NEGATIVE Urine Blood NEGATIVE Urine Nitrite NEGATIVE Urine Bilirubin NEGATIVE Urine Urobilinogen 4.0 H Ur Leukocyte Esterase NEGATIVE Squamous Epi Cells Auto <1 Urine Ascorbic Acid NEGATIVE Phenytoin 18.0 Serum Alcohol Blood Type Antibody Screen 08/03/18 12:50 WBC RBC Hgb Hct MCV MCH MCHC RDW Plt Count Seg Neutrophils % Lymphocytes % Monocytes % Eosinophils % Basophils % Absolute Neutrophils Absolute Lymphocytes Absolute Monocytes Absolute Eosinophils Absolute Basophils Platelet Comment Anisocytosis Macrocytosis PT INR APTT Fibrinogen Fibrin Degrad Products VBG pH VBG pCO2 VBG HCO3 VBG Base Excess Sodium Potassium Chloride Carbon Dioxide Anion Gap BUN Creatinine Est GFR ( Amer) Est GFR (Non-Af Amer) Glucose Calcium Magnesium Total Bilirubin Direct Bilirubin Neonat Total Bilirubin Neonat Direct Bilirubin Neonat Indirect Bili AST ALT Alkaline Phosphatase Ammonia Total Protein Albumin Lipase Urine Color Urine Appearance Urine pH Ur Specific [place] Urine Protein Urine Glucose (UA) Urine Ketones Urine Blood Urine Nitrite Urine Bilirubin Urine Urobilinogen Ur Leukocyte Esterase Squamous Epi Cells Auto Urine Ascorbic Acid Phenytoin Serum Alcohol Blood Type O POSITIVE Antibody Screen NEGATIVE Chest X-Ray 08/03/18 10:12 IMPRESSION: 1. No significant interval changes since the prior examination dated 06/11/2016. No acute findings. Head CT 08/03/18 10:46 IMPRESSION: No acute abnormality in the brain. EVIDENCE OF ACUTE STROKE: NO. 08/03/18 14:37 Patient did have some resolution of his agitated state after Ativan. His blood pressure has declined slightly to 92/57. He is still not had any active bleeding in the ED. Patient will be given a second liter bolus. I am still waiting to hear from the accepting physician at [facility]. 08/03/18 16:37 I have made multiple calls to [facility] and have been told that the em ergency physician will be calling me back shortly. I still have not heard from the accepting physician. Patient became acutely agitated and pulled out his IV then walked naked down the hallway to the bathroom. Upon my evaluation he was sitting in the bathroom in no acute distress. He was easily redirectable. He went back to his bed without difficulty. He is able to ambulate with single assistance. Patient will be given another dose of Ativan to assist with his agitation and to further prevent any alcohol withdrawal. I am again calling [facility] where family still wishes for him to be transfered. 08/03/18 16:51 Just attempted to reach the ER physician again and was told that they are still unavailable. I have been attempting to transfer this patient for about 4 hours now. I am going to re-page the hospitalist to see if there is a possibility that they will except for transfer. 08/03/18 17:41 Prior to receiving the second dose of Ativan patient fell asleep. He is still hemodynamically stable. He has not had any hematemesis to this point. Patient case was discussed with Dr. Aguilar in the emergency room at [facility] who has accepted patient for transfer. - Vital Signs Vital signs: Temp Pulse Resp BP Pulse Ox 98.9 F 20 116/87 H 08/03/18 10:17 08/03/18 10:31 08/03/18 10:17 - Laboratory Result Diagrams: 08/03/18 10:23 08/03/18 10:23 Laboratory results interpreted by me: 08/03/18 08/03/18 08/03/18 10:23 10:23 10:23 RBC 3.31 L Hgb 13.3 L Hct 37.5 L MCV 113 H MCH 40.2 H RDW 15.0 H Plt Count 54 L PT 17.1 H APTT 37.4 H VBG pH VBG pCO2 Sodium 135.7 L Potassium 3.3 L Chloride 96 L BUN < 2 L Creatinine 0.47 L Calcium 8.2 L Total Bilirubin 2.4 H Direct Bilirubin 1.1 H AST 171 H Alkaline Phosphatase 187 H Urine Urobilinogen Serum Alcohol 322 H* 08/03/18 08/03/18 11:28 12:46 RBC Hgb Hct MCV MCH RDW Plt Count PT APTT VBG pH 7.54 H VBG pCO2 30.6 L Sodium Potassium Chloride BUN Creatinine Calcium Total Bilirubin Direct Bilirubin AST Alkaline Phosphatase Urine Urobilinogen 4.0 H Serum Alcohol Critical Care Note - Critical Care Note Total time excluding time spent on procedures (mins): 105 Comments: 105 Minutes of critical care time spent in direct contact evaluating and reevaluating the patient, treating symptoms, reviewing labs and studies and speaking with family and consultants excluding any procedures. Patient has high potential for cardiovascular decompensation given active bleeding and thrombocytopenia. He was frequently reevaluated throughout his stay in the emergency room. Discharge - Discharge Clinical Impression: Wernickes encephalopathy, Ataxia, Alcohol intoxication delirium, Metabolic alkalosis, Hyponatremia, Hypokalemia, Upper GI bleed, Thrombocytopenia Condition: Stable Disposition: [place]
[2018-08-03 11:19] LABS: ABSOLUTE LYMPHOCYTES (AUTO) 1.6 10^3/uL (0.5-4.7); ABSOLUTE MONOCYTES (AUTO) 0.7 10^3/uL (0.1-1.4); ABSOLUTE NEUT (AUTO) 4.1 10^3/uL (1.7-8.2); BASOPHILS % (AUTO) 0.2 % (0-2); EOSINOPHILS % (AUTO) 0.1 % (0-6); HEMATOCRIT 37.5 % (37.9-51.0); HEMOGLOBIN 13.3 g/dL (13.5-17.0); LYMPHOCYTES % (AUTO) 25.3 % (13-45); MEAN CORPUSCULAR HEMOGLOBIN 40.2 pg (27.0-33.4); MEAN CORPUSCULAR HGB CONC 35.5 g/dL (32.0-36.0); MEAN CORPUSCULAR VOLUME 113 fl (80-97); MONOCYTES % (AUTO) 10.6 % (3-13); RED BLOOD COUNT 3.31 10^6/uL (4.35-5.55); SEGMENTED NEUTROPHILS % (AUTO) 63.8 % (42-78); TOTAL CELLS COUNTED % (AUTO) 100 %; WHITE BLOOD COUNT 6.5 10^3/uL (4.0-10.5)
[2018-08-03 11:23] LABS: ALBUMIN 3.7 g/dL (3.5-5.0); ANION GAP 14 (5-19); ASPARTATE AMINO TRANSFERASE 171 U/L (17-59); CALCIUM 8.2 mg/dL (8.4-10.2); CARBON DIOXIDE 26 mmol/L (22-30); CHLORIDE 96 mmol/L (98-107); GLUCOSE 110 mg/dL (75-110); POTASSIUM 3.3 mmol/L (3.6-5.0); SODIUM 135.7 mmol/L (137-145)
--- NOTE | 2018-08-03 11:23 | RADIOLOGY REPORT (SQ) ---
EXAM DESCRIPTION: CT HEAD WITHOUT COMPLETED DATE/TIME: 08/03/2018 11:14 am REASON FOR STUDY: head injury COMPARISON: 06/11/2016 TECHNIQUE: Axial images acquired through the brain without intravenous contrast. Images reviewed wi th bone, brain and subdural windows. Additional sagittal and coronal reconstructions were generated. Images stored on PACS. All CT scanners at this facility use dose modulation, iterative reconstruction, and/or weight based d osing when appropriate to reduce radiation dose to as low as reasonably achievable (ALARA). [facility]: Dose Right [facility]: CareDose [facility]: Dose Right [facility]: Teradose 4D [facility]: Uzabase RADIATION DOSE: CT Rad equipment meets quality standard of care and radiation dose reduction techniq ues were employed. CTDIvol: 53.2 mGy. DLP: 1688 mGy-cm. mGy. LIMITATIONS: Motion. FINDINGS: VENTRICLES: Normal size and contour. CEREBRUM: No masses. No hemorrhage. No midline shift. No evidence for acute infarction. Normal gra y/white matter differentiation. No areas of low density in the white matter. CEREBELLUM: No masses. No hemorrhage. No alteration of density. No evidence for acute infarction. EXTRAAXIAL SPACES: No fluid collections. No masses. ORBITS AND GLOBE: No intra- or extraconal masses. Normal contour of globe without masses. CALVARIUM: No fracture. PARANASAL SINUSES: Mucosal thickening maxillary sinuses. SOFT TISSUES: No mass or hematoma. OTHER: No other significant finding. IMPRESSION: No acute abnormality in the brain. EVIDENCE OF ACUTE STROKE: NO. COMMENT: Quality ID # [id number]: Final reports with documentation of one or more dose reduction techniques (e.g., Automated exposure control, adjustment of the mA and/or kV according to patient size, use of iterative reconstruction technique) TECHNICAL DOCUMENTATION: JOB ID: [id number] [employer]- All Rights Reserved Reading location - IP/workstation name: [email or web address]
[2018-08-03 11:24] LABS: ALANINE AMINOTRANSFERASE 47 U/L (21-72); ALKALINE PHOSPHATASE 187 U/L (38-126); BILIRUBIN,DIRECT 1.1 mg/dL (0.0-0.4); BILIRUBIN,TOTAL 2.4 mg/dL (0.2-1.3); LIPASE 263.6 U/L (23-300); TOTAL PROTEIN 7.2 g/dL (6.3-8.2)
[2018-08-03 11:29] LABS: INTERNATIONAL RATION (INR) 1.33; PROTHROMBIN TIME 17.1 SEC (11.4-15.4)
[2018-08-03 11:30] LABS: FIBRINOGEN 243 mg/dL (209-497); PARTIAL THROMBOPLASTIN TIME 37.4 SEC (23.5-35.8)
[2018-08-03 11:36] LABS: BLOOD UREA NITROGEN < 2 mg/dL (7-20)
--- NOTE | 2018-08-03 11:36 | RADIOLOGY REPORT (SQ) ---
EXAM DESCRIPTION: CHEST SINGLE VIEW COMPLETED DATE/TIME: 08/03/2018 11:17 am REASON FOR STUDY: cough COMPARISON: 06/11/2016 EXAM PARAMETERS: NUMBER OF VIEWS: One view. TECHNIQUE: Single frontal radiographic view of the chest acquired. RADIATION DOSE: NA LIMITATIONS: None. FINDINGS: LUNGS AND PLEURA: No opacities, masses or pneumothorax. No pleural effusion. MEDIASTINUM AND HILAR STRUCTURES: No masses. Contour normal. HEART AND VASCULAR STRUCTURES: Heart normal in size. Normal vasculature. BONES: No acute findings. HARDWARE: None in the chest. OTHER: No other significant finding. IMPRESSION: 1. No significant interval changes since the prior examination dated 06/11/2016. No ac [place] findings. TECHNICAL DOCUMENTATION: JOB ID: [id number] [email or web address]- All Rights Reserved Reading location - IP/workstation name: [email or web address]
[2018-08-03 11:40] LABS: ALCOHOL 322 mg/dL (NONE DETECTED)
[2018-08-03 11:46] LABS: ANISOCYTOSIS SLIGHT; PLATELET COMMENT DECREASED; PLATELET COUNT 54 10^3/uL (150-450)
[2018-08-03 11:56] LABS: VENOUS BLOOD BASE EXCESS 3.8 mmol/L; VENOUS BLOOD HCO3 25.4 mmol/L (20-32); VENOUS BLOOD PCO2 30.6 mmHg (35-63); VENOUS BLOOD PH 7.54 (7.30-7.42)
[2018-08-03 13:37] LABS: APPEARANCE,URINE CLEAR; BILIRUBIN,URINE NEGATIVE (NEGATIVE); GLUCOSE, URINE NEGATIVE (NEGATIVE); KETONES,URINE NEGATIVE (NEGATIVE); LEUKOCYTE ESTERASE,URINE NEGATIVE (NEGATIVE); NITRITE,URINE NEGATIVE (NEGATIVE); PROTEIN,URINE NEGATIVE (NEGATIVE); URINE SPECIFIC GRAVITY 1.009
[2018-08-03 13:42] LABS: COLOR,URINE YELLOW
[2018-08-03 13:46] LABS: URINE AMPHETAMINES SCREEN NEGATIVE; URINE BARBITURATES SCREEN NEGATIVE; URINE BENZODIAZEPINES SCREEN NEGATIVE; URINE COCAINE SCREEN NEGATIVE; URINE MARIJUANA (THC) SCREEN NEGATIVE; URINE METHADONE SCREEN NEGATIVE; URINE PHENCYCLIDINE SCREEN NEGATIVE
[2018-08-03] MEDS ORDERED: LORAZEPAM INJ 2 MG/1 ML VIAL IV ONE ×2 (13:46→16:37)
[2018-08-03] MEDS ORDERED: THIAMINE HCL IV ONE (13:46)
[2018-08-03] MEDS ORDERED: NORMAL SALINE IV ONE (13:46)
[2018-08-03] MEDS ORDERED: RINGERS SOLUTION,LACTATED 1,000 ML IV ONE (14:36)
[2018-08-03] MEDS ORDERED: THIAMINE HCL 500 MG in NORMAL SALINE 250 ML IV SCH ×2 (16:00→18:00)
[2018-08-03 19:33] VITALS: BP 113/79
== END 2018-08-03 20:10 | disposition short-term general hospital (02) ==
LOC: ER 10:07
DX: E51.2 Wernicke's encephalopathy (principal); R27.0 Ataxia, unspecified; F10.221 Alcohol dependence with intoxication delirium; E87.3 Alkalosis; E87.1 Hypo-osmolality and hyponatremia; E87.6 Hypokalemia; K92.2 Gastrointestinal hemorrhage, unspecified; D69.6 Thrombocytopenia, unspecified; R41.82 Altered mental status, unspecified; K92.0 Hematemesis; R06.02 Shortness of breath; S09.90XA Unspecified injury of head, initial encounter; W19.XXXA Unspecified fall, initial encounter; Y92.002 Bathroom of unspecified non-institutional (private) residence as the place of occurrence of the external cause; H53.8 Other visual disturbances; Z79.899 Other long term (current) drug therapy; J44.9 Chronic obstructive pulmonary disease, unspecified; F17.210 Nicotine dependence, cigarettes, uncomplicated
CPT/HCPCS: 99291; 99292; 96375; 96365; 96366; 86900; 86901; 36415; 86850; 80307 ×2; 82140; 83690; 83735; 80185; 85025; 85384; 85362; 85610; 85730; 80053; 81001; 82803; 71045; 70450; J3490; J2060; J2354; S0164; J3411; J2405; J7030; J7050; J7120

== ENCOUNTER 2018-08-30 14:11 | Emergency (ER) | payer SELFPAY ==
--- NOTE | 2018-08-30 14:30 | ER Document Report ---
ED Medical Screen (RME) - General Chief Complaint: Arm Injury Stated Complaint: RIGHT FOREARM INJURY Time Seen by Provider: 08/30/18 14:28 Mode of Arrival: Wheelchair Information source: Patient TRAVEL OUTSIDE OF THE [place] IN LAST 30 DAYS: No - HPI Patient complains to provider of: trauma R forearm Onset: Just prior to arrival - pt was working on a car when the pato fell out and car fell on R FA. Tet- UTD - Related Data Allergies/Adverse Reactions: hydrocodone bitartrate [From Vicodin] Adverse Reaction (Intermediate, Verified 12/04/15 06:47) lavender (Lavandula angustifolia) Adverse Reaction (Verified 02/03/17 03:22) Past Medical History - Past Medical History Cardiac Medical History: Denies: Hx Atrial Fibrillation, Hx Congestive Heart Failure, Hx Coronary Artery Disease, Hx DVT, Hx Heart Attack, Hx Hypercholesterolemia, Hx Hypertension, Hx Pulmonary Embolism Pulmonary Medical History: Reports: Hx COPD Denies: Hx Asthma, Hx Sleep Apnea, Hx Tuberculosis Neurological Medical History: Reports: Hx Seizures Endocrine Medical History: Denies: Hx Diabetes Mellitus Type 1, Hx Diabetes Mellitus Type 2, Hx Hyperthyroidism, Hx Hypothyroidism Renal/ Medical History: Denies: Hx Peritoneal Dialysis GI Medical History: Reports: Hx Cirrhosis. Denies: Hx Hepatitis Musculoskeltal Medical History: Denies Hx Arthritis Psychiatric Medical History: Denies: Hx Depression Traumatic Medical History: Reports: Hx Fractures - current Right foot fracture Infectious Medical History: Denies: Hx Hepatitis Past Surgical History: Reports: Hx Abdominal Surgery, Hx Genitourinary Surgery, Hx Herniorrhaphy - With chronic postop pain, Other - Nerve stimulator implant; relocation posteriorly 6 months ago.. Denies: Hx Pacemaker - Immunizations Hx Diphtheria, Pertussis, Tetanus Vaccination: Yes - >3months Physical Exam - Vital signs Vitals: Temp Pulse Resp BP Pulse Ox 98.3 F 92 18 100/65 98 08/30/18 14:20 08/30/18 14:20 08/30/18 14:20 08/30/18 14:20 08/30/18 14:20 Course - Vital Signs Vital signs: Temp Pulse Resp BP Pulse Ox 98.3 F 92 18 100/65 98 08/30/18 14:20 08/30/18 14:20 08/30/18 14:20 08/30/18 14:20 08/30/18 14:20
[2018-08-30] MEDS ORDERED: HYDROMORPHONE HCL INJ/PF 2 MG/ML AMPULE IM ONE (14:53)
--- NOTE | 2018-08-30 14:54 | ER Document Report ---
ED Extremity Problem, Upper - General Chief Complaint: Arm Injury Stated Complaint: RIGHT FOREARM INJURY Time Seen by Provider: 08/30/18 14:28 Mode of Arrival: Wheelchair Information source: Patient Notes: Pt is a 38 year old male who presents to the ER today for a car falling while he was working under it and the pato fell, dropping the car. He states that the rotor fell on his right forearm and the "fiberglass" of the front of the car fell on his head. He did not lose consciousness, denies headache, states that it "wasn't that heavy" and he's more worried about his arm. Family states the his arm was stuck under the rotor for a few minutes until they came to help him get it out. He has a laceration on his right forearm, denies pain elsewhere, denies blurred vision, weakness anywhere, n/t. He is up to date on tetanus. TRAVEL OUTSIDE OF THE [place] IN LAST 30 DAYS: No - Related Data Allergies/Adverse Reactions: hydrocodone bitartrate [From Vicodin] Adverse Reaction (Intermediate, Verified 12/04/15 06:47) lavender (Lavandula angustifolia) Adverse Reaction (Verified 02/03/17 03:22) Past Medical History - General Information source: Patient - Social History Smoking Status: Current Every Day Smoker Frequency of alcohol use: None Drug Abuse: None Family History: CVA Patient has suicidal ideation: No Patient has homicidal ideation: No - Past Medical History Cardiac Medical History: Denies: Hx Atrial Fibrillation, Hx Congestive Heart Failure, Hx Coronary Artery Disease, Hx DVT, Hx Heart Attack, Hx Hypercholesterolemia, Hx Hypertension, Hx Pulmonary Embolism Pulmonary Medical History: Reports: Hx COPD Denies: Hx Asthma, Hx Sleep Apnea, Hx Tuberculosis Neurological Medical History: Reports: Hx Seizures Endocrine Medical History: Denies: Hx Diabetes Mellitus Type 1, Hx Diabetes Mellitus Type 2, Hx Hyperthyroidism, Hx Hypothyroidism Renal/ Medical History: Denies: Hx Peritoneal Dialysis GI Medical History: Reports: Hx Cirrhosis. Denies: Hx Hepatitis Musculoskeletal Medical History: Denies Hx Arthritis Psychiatric Medical History: Denies: Hx Depression Traumatic Medical History: Reports: Hx Fractures - current Right foot fracture Infectious Medical History: Denies: Hx Hepatitis Past Surgical History: Reports: Hx Abdominal Surgery, Hx Genitourinary Surgery, Hx Herniorrhaphy - With chronic postop pain, Other - Nerve stimulator implant; relocation posteriorly 6 months ago.. Denies: Hx Pacemaker - Immunizations Hx Diphtheria, Pertussis, Tetanus Vaccination: Yes - >3months Review of Systems - Review of Systems Constitutional: No symptoms reported EENT: No symptoms reported Cardiovascular: No symptoms reported Respiratory: No symptoms reported Gastrointestinal: No symptoms reported Genitourinary: No symptoms reported Male Genitourinary: No symptoms reported Musculoskeletal: See HPI Skin: See HPI Hematologic/Lymphatic: No symptoms reported Neurological/Psychological: No symptoms reported Physical Exam - Vital signs Vitals: Temp Pulse Resp BP Pulse Ox 98.3 F 92 18 100/65 98 08/30/18 14:20 08/30/18 14:20 08/30/18 14:20 08/30/18 14:20 08/30/18 14:20 - Notes Notes: PHYSICAL EXAMINATION: GENERAL: uncomfortable-appearing, but in no acute distress. HEAD: Atraumatic, no tenderness, normocephalic. EYES: airway patent ENT: ear canals without erythema or foreign body, TMs pearly simmons with good bony landmarks, nares patent, oropharynx clear without exudates. Moist mucous membranes. NECK: Normal range of motion, supple without lymphadenopathy LUNGS: CTAB and equal. No wheezes rales or rhonchi. HEART: Regular rate and rhythm without murmurs EXTREMITIES: tender to right forearm, 3cm laceration to volar forearm, no bleeding, superficial, Normal range of motion, no pitting edema. No cyanosis. NEUROLOGICAL: Cranial nerves grossly intact. Normal sensory/motor exams. PSYCH: Normal mood, normal affect. SKIN: Warm, Dry, normal turgor, see extremities above Course - Re-evaluation Re-evalutation: 08/30/18 21:56 CT head declined by pt due to no symptoms and "minor" head injury per pt. forearm x ray shows foreign bodies I did flush out prior to suturing. laceration sutured successfully, pt to return in 7 days for suture removal. - Vital Signs Vital signs: Temp Pulse Resp BP Pulse Ox 97.7 F 91 16 116/71 94 08/30/18 17:07 08/30/18 17:07 08/30/18 17:07 08/30/18 17:07 08/30/18 17:07 Procedures - Laceration/Wound Repair Right Distal Arm Time completed: 17:00 Wound length (cm): 3 Wound's Depth, Shape: Superficial, Irregular Laceration pre-procedure: Sterile PPE donned, Sterile drapes applied, Shur-Clens applied Anesthetic type: 1% Lidocaine Volume Anesthetic (mLs): 4 Wound explored: Foreign body removed Irrigated w/ Saline (mLs): 30 Wound Debrided: Minimal Wound Repaired With: Sutures Suture Size/Type: 4:0, Ethilon Number of Sutures: 5 Layer Closure?: No Post-procedure wound care: Sterile dressing applied Post-procedure NV exam normal: Yes Complications: No Discharge - Discharge Clinical Impression: Laceration of right forearm Qualifiers: Encounter type: initial encounter Qualified Code(s): S51.811A - Laceration without foreign body of right forearm, initial encounter Condition: Stable Disposition: HOME, SELF-CARE Instructions: Laceration Care ([facility]) Additional Instructions: Return immediately for any new or worsening symptoms. Follow up with primary care provider, call tomorrow to make followup appointment. Prescriptions: Hydrocodone/Acetaminophen [[place] 5-325 mg Tablet] 1 tab PO Q4H PRN #10 tablet PRN Reason:
--- NOTE | 2018-08-30 15:21 | RADIOLOGY REPORT (SQ) ---
EXAM DESCRIPTION: FOREARM RIGHT COMPLETED DATE/TIME: 08/30/2018 2:48 pm REASON FOR STUDY: trauma COMPARISON: None. NUMBER OF VIEWS: Two views. TECHNIQUE: Two radiographic images acquired of the right forearm, including elbow and wrist in at le ast one projection. LIMITATIONS: None. FINDINGS: MINERALIZATION: Normal. BONES: No acute fracture. No worrisome bone lesions. SOFT TISSUES: No obvious swelling or foreign body. OTHER: There are radiopaque densities within the soft tissues dorsal and medial to the proximal right ulnar. Soft tissue deformity in this region is noted. Radiopaque densities in soft tissues posteri or to distal right humerus. IMPRESSION: Soft tissue foreign bodies adjacent to proximal right ulnar medially and posteriorly and adjacent to distal right humerus posteriorly. No fracture seen. TECHNICAL DOCUMENTATION: JOB ID: [id number] [employer]- All Rights Reserved Reading location - IP/workstation name: [email or web address]
[2018-08-30] MEDS ORDERED: LIDOCAINE 1% INJ-PF (10 MG/ML) 30 ML SDV INJ ONE (15:39)
[2018-08-30] MEDS ORDERED: OXYCODONE-ACETAMINOPHEN 5-325 MG TABLET PO ONE (16:31)
[2018-08-30 17:08] VITALS: BP 116/71
== END 2018-08-30 17:12 | disposition home or self-care (01) ==
LOC: ER 14:11
PROC: 0HQDXZZ Repair Right Lower Arm Skin, External Approach (ICD-10-PCS; principal; 2018-08-30)
DX: S51.811A Laceration without foreign body of right forearm, initial encounter (principal); W22.8XXA Striking against or struck by other objects, initial encounter; F17.200 Nicotine dependence, unspecified, uncomplicated; J44.9 Chronic obstructive pulmonary disease, unspecified
CPT/HCPCS: 99283; 96372; 73090; 12002; J1170